=== PATIENT | female | born 1945 | race Caucasian/White ===

== ENCOUNTER → 2019-04-24 10:33 | Outpatient (BNVA) | payer MEDICARE, MEDICAID, SELFPAY | PROVIDERS: PCP Nurse Practitioner Family; Visit Provider Nurse Practitioner Family | DX: R60.9 Edema, unspecified (principal); J44.0 Chronic obstructive pulmonary disease with (acute) lower respiratory infection; J20.9 Acute bronchitis, unspecified; W19.XXXA Unspecified fall, initial encounter; S22.080A Wedge compression fracture of T11-T12 vertebra, initial encounter for closed fracture; R60.0 Localized edema | CPT/HCPCS: 83880 ==

== ENCOUNTER → 2019-06-13 13:54 | Outpatient (BNVA) | payer MEDICARE, MEDICAID, SELFPAY | PROVIDERS: PCP Nurse Practitioner Family; Visit Provider Nurse Practitioner Family | DX: Z51.81 Encounter for therapeutic drug level monitoring (principal); Z79.899 Other long term (current) drug therapy; R60.9 Edema, unspecified; J44.9 Chronic obstructive pulmonary disease, unspecified; I50.9 Heart failure, unspecified | CPT/HCPCS: 80053; 80162 ==

== ENCOUNTER → 2019-08-06 11:09 | Outpatient (BNVA) | payer MEDICARE, MEDICAID, SELFPAY | PROVIDERS: PCP Nurse Practitioner Family; Visit Provider Registered Nurse | DX: R60.9 Edema, unspecified (principal); I87.2 Venous insufficiency (chronic) (peripheral); R60.0 Localized edema | CPT/HCPCS: 81000 ==

== ENCOUNTER 2019-08-08 12:49 | Inpatient (IN) | payer MEDICARE, MEDICAID, SELFPAY ==
[2019-08-08 10:34] VITALS: BMI 34.7
[2019-08-08 10:45] VITALS: BP 170/76; PULSE 97; RESP 24; TEMP 37.1; O2SAT 94
--- NOTE | 2019-08-08 11:00 | CT_ITS ---
WS: [id number] CT HEAD NONCONTRAST HISTORY: fall TECHNIQUE: Contiguous axial imaging performed through the brain in 2.5 mm imaging. Bone and soft tiss ue windows. Sagittal and coronal reformats reviewed. All CT scans at [facility] use at ast one of these dose optimization techniques: automated exposure control; mA and/or kV adjustment pe r patient size (includes targeted exams where dose is matched to clinical indication); or iterative r econstruction. DLP: 775.18 mGy.cm COMPARISON: 11/05/2018 No acute intracranial hemorrhage, midline shift or mass effect. Metallic artifact in the RIGHT tempor al region from a bone anchor hearing device. No atrophy or prior infarcts or herniation. Ventricles: Normal size with no hydrocephalus. No inferior displacement of cerebellar tonsils. Paranasal sinuses: Mild sphenoid sinus disease. Mastoid air cells: Well pneumatized. Calvarium and scalp: Bone anchored hearing device in the posterior RIGHT temporoparietal region simil ar to prior studies. Heavy calcification within the intracranial carotid arteries. CT/CT head wo con* [id number] IMPRESSION: 1. No acute intracranial hemorrhage or edema. 2. Stable head CT since 11/05/2018.
--- NOTE | 2019-08-08 11:00 | XR_ITS ---
WS: [id number] PORTABLE CHEST HISTORY: cough/congestion COMPARISON: 11/05/2018 Examination obtained in lordotic rotated projection. Lungs are clear and well expanded. No pleural effusion or pneumothorax. Cardiac size: Normal. Mediastinum/Aorta: Normal mediastinum. No osseous abnormality seen. XR/XR chest 1V portable [id number] IMPRESSION: Unremarkable portable chest.
--- NOTE | 2019-08-08 11:00 | CT_ITS ---
WS: [id number] CT CERVICAL SPINE HISTORY: fall TECHNIQUE: Contiguous 2.5 mm axial imaging performed through the entire cervical spine. Sagittal and coronal reformats also performed. All CT scans at [facility] use at least one of these do se optimization techniques: automated exposure control; mA and/or kV adjustment per patient size (inc ludes targeted exams where dose is matched to clinical indication); or iterative reconstruction. DLP: 796.6 mGy.cm COMPARISON: None available. Significant rotation of the cervical spine due to patient positioning. RIGHT convex curvature of the posterior alignment being straightened. Craniocervical junction is negative. C1-C2 alignment is meagan l. Moderate degenerative disc disease and small osteophytes at C4-5 and C5-6. Facet joints are normally aligned. C2-C3: Normal. C3-C4: Mild osteophytic ridging. No significant stenosis. C4-C5: Mild osteophytic ridging resulting in moderate to severe RIGHT and moderate LEFT foraminal mayank nosis. C5-C6: Moderate osteophytic ridging. Mild central and moderate RIGHT foraminal stenosis. C6-C7: Mild osteophytic ridging. Mild bilateral foraminal stenosis. C7-T1: Normal. Lung apices are clear. Seen only on image 65 of series 4 is a possible rib fracture in the posterior RIGHT third rib. CT/CT cervical spin wo con* [id number] IMPRESSION: 1. No cervical spine fracture. 2. Degenerative disc disease and osteophytosis. Moderate to severe RIGHT and m oderate LEFT foraminal stenosis at C4-5. 3. Mild central with moderate RIGHT foraminal stenosis at C5-6. 4. Possible posterior RIGHT third rib fracture.
--- NOTE | 2019-08-08 11:02 | ED_ITS ---
HPI - Altered Mental Status General: Chief Complaint: Altered Mental Status Stated Complaint: fall Source: patient, family (spoke to two nieces that help take care of her) and EMS Mode of arrival: EMS Limitations: language barrier (pt is very hard of hearing) History of Present Illness: HPI narrative: Patient is a 73-year-old female who presents to ED today via EMS for a complaint of altered mental status. According to EMS they have been called to the patient's residence several times over the past week for various falls. Patient's niece states that she resides at a senior citizen facility in [place] and has home health that checks on her daily. Apparently EMS got called to her residence today and when they arrived noticed that the patient was altered. They checked a blood sugar and found it was 42 so administered D10 which quickly improved her symptoms. Upon arrival patient is able to answer questions when she can hear them appropriately. She knows she is at [place] in the hospital. She tells me EMS brought her here because she was having difficulty getting out of her chair. She has no physical complaints at this time. According to patient's niece she is her own guardian. She ambulates on her own without difficulty. Family states she has a history of asthma, COPD, DM, CAD. She wears a CPAP at night. She has seen providers at the [facility] clinic recently for CHF/edema. complaint: altered mental status, confusion and decreased responsiveness Onset (ago): hour(s) Timing confirmed by: other (EMS-has seen pt several times) Consistency of symptoms: Unknown (improved now after dextrose administered ) Associated symptoms: Reports no associated symptoms Treatments prior to arrival: glucose Review of Systems General: Reports: 10 or more systems reviewed and unremarkable except in HPI and below Const: Denies: fever(s) or body aches Eyes: Denies: change in vision or blurry vision ENMT: Denies: odynophagia Card: Reports: edema (legs R>L), swelling of feet/ankles and orthopnea (chronic); Denies: chest pain, palpitations, irregular heart rhythm, lightheadedness, syncope or pre-syncope Resp: Reports: dyspnea (chronic); Denies: productive cough, hemoptysis or chest congestion GI: Denies: abdominal pain, nausea, vomiting or diarrhea Musc: Denies: neck pain or back pain Skin/Breast: Denies: rash Neuro: Denies: headache(s) PFSH ED PFSH: Social History (Updated 08/06/19 @ 09:55 by Mitra Ruff LPN) Smoking and tobacco status: smoker, details unknown Second hand smoke exposure: No Adopted: No Caregiver/support person: No Lives independently: Yes History of recent travel: No Current gender identity: Female Physical Exam Const: COMMON NORMALS: no acute distress, patient oriented x3 and alert EXAM LIMITATIONS: language barrier (pt is EXTREMELY hard of hearing) GENERAL APPEARANCE: cooperative NUTRITIONAL APPEARANCE: obese ORIENTATION/CONSCIOUSNESS: Yes oriented to person and Yes oriented to place HENMT: COMMON NORMALS: normocephalic, external ears normal and Normal external nose present HEAD & SCALP: normocephalic and other (pt has mild ecchymosis to L forehead-states she scratched it ) NOSE: Normal external nose present EXTERNAL EAR: Yes external ears normal Eye: COMMON NORMALS: Equal, round and reactive pupils present, EOMs intact bilaterally, conjunctivae normal and no scleral icterus CONJUNCTIVA: Yes conjunctivae normal PUPIL: Yes Equal, round and reactive pupils present Neck/C-Spine: COMMON NORMALS: full ROM CERVICAL SPINE: No pain with cervical ROM, No Cervical spine tenderness and No Paracervical muscle tenderness Chest: COMMONS NORMALS: normal inspection of the chest and normal palpation of entire chest wall OTHER: small area of ecchymosis to L posterior chest wall; appears a few days old Resp: COMMON NORMALS: normal respiratory effort and clear to auscultation bilaterally AUSCULTATION: clear to auscultation bilaterally Cardio: COMMON NORMALS: regular rate and regular rhythm RATE: regular rate RHYTHM: regular rhythm GI: COMMON NORMALS: Normal to inspection, nondistended, normoactive bowel sounds present, Soft to palpation, non-tender, No hepatosplenomegaly present and no masses PALPATION: Yes Soft to palpation and Yes No hepatosplenomegaly present OTHER: obese : COMMON NORMALS: Yes no CVA tenderness BLADDER/KIDNEY EXAM: Yes no CVA tenderness Back/Pelvis: COMMON NORMALS: no CVA tenderness Extremity: GENERAL: Yes normal exam except as noted OTHER: R>L lower extremity edema (this apparently has been present previously looking at recent PCP visit documentation) Neuro: CECILIA COMA SCALE: document GCS findings Corinne coma scale eye opening: Spontaneous Cecilia coma scale verbal response: Orientated Corinne coma scale motor response: Obey commands Cecilia coma scale total score: 15 COMMON NORMALS: patient oriented x3, moves all extremities, no focal motor deficits and no sensory deficits noted SENSORIUM/ORIENTATION: Yes alert, Yes oriented to person and Yes oriented to place Course Vital Signs: Vital signs: Vital Signs Temperature 98.8 F 08/08/19 10:45 Pulse Rate 97 08/08/19 10:45 Respiratory Rate 24 H 08/08/19 10:45 Blood Pressure 170/76 08/08/19 10:45 Pulse Oximetry 94 08/08/19 10:45 MDM - Altered Mental Status MDM Narrative: Medical decision making narrative: Patient comes in today after an episode of altered mental status due to hypoglycemia. Upon arrival patient is alert and oriented. She has no physical complaints at this time. Her extensive work-up from the emergency department does not reveal any further cau ses for her altered mental status episode. Now that we have patient's hearing aid working she better at providing a further history. Patient tells me she wants to go home and is adamant about not going into an assisted living care facility. Case management has worked with patient and found that she has [facility] as well as [facility] at home. She was able to ambulate here without difficulty. Her repeat glucose here was in the 120s. Again her mental status seems to be at her baseline at this time. She is requesting to go home therefore will discharge patient. Return to ED precautions given Lab Data: Labs: Lab Results 08/08/19 08/08/19 08/08/19 Range/Units 09:45 09:45 09:45 WBC 7.4 (4.0-10.0) 10^3/ uL RBC 4.03 L (4.1-5.3) 10^6/u L Hgb 11.3 L (11.5-15.3) g/dL Hct 36.8 L (37.0-47.0) % MCV 91.3 (81-99) fL MCH 28.0 (28.0-34.0) pg MCHC 30.7 (30.0-36.0) g/dL RDW 14.2 (12.1-15.1) % Plt Count 312 (130-400) 10^3/c mm MPV 9.2 (7.4-10.4) fL Neut % (Auto) 76.9 % Lymph % (Auto) 15.9 % Bee % (Auto) 5.6 % Eos % (Auto) 0.7 % Baso % (Auto) 0.1 % Neut # (Auto) 5.7 (1.8-7.7) 10^3/u L Lymph # (Auto) 1.2 (0.8-4.8) 10^3/u L Bee # (Auto) 0.4 (0.2-0.9) 10^3/u L Eos # (Auto) 0.1 (0.0-0.8) 10^3/u L Baso # (Auto) 0.0 (0.0-0.1) 10^3/u L Nucleated RBC % (a uto) 0 % Nucleated RBCs # 0.0 /100WBC Specimen Type Sample Site ABG pH (7.35-7.45) ABG pCO2 (35-45) mmHg ABG pO2 (80.0-100.0) mmH g ABG HCO3 (22-26) mmol/L ABG O2 Saturation ABG Base Excess (-2.0-2.0) mmol/ L Narendra Test A-a O2 Gradient (5-10) mmHg Hematocrit (37-47) % Hgb O2 Saturation (95-100) % Carboxyhemoglobin (0.4-20.1) %THgb Methemoglobin (0.4-1.5) % Total Hemoglobin (12-16) g/dL Ionized Calcium (1.1-1.4) mmol/L FiO2 % Real Estate Attorney ID Sodium 140 (136-145) mmol/L Potassium 4.3 (3.5-5.1) mmol/L Chloride 97 L (98-107) mmol/L Carbon Dioxide 30 H (22-29) mmol/L Anion Gap 17.3 (5-19) BUN 18 (8-23) mg/dL Creatinine 0.7 (0.5-0.9) mg/dL Glucose 41 L (65-115) mg/dL POC Glucose (70-110) mg/dL Calculated Osmolal ity 283 L (285-295) mOsm/k g Lactate (0.5-2.2) mmol/L Calcium 10.1 (8.5-10.5) mg/dL Magnesium 1.7 (1.7-2.3) mg/dL Total Bilirubin 0.3 (0.15-1.2) mg/dL AST 20 (0-32) U/L ALT 15 (0-33) U/L Alkaline Phosphata se 101 (35-105) IU/L Creatine Kinase 159 (26-192) U/L Troponin T Baselin e 12 H (0-10) ng/mL Troponin T 120 Min united [place] (0-10) ng/mL Delta Troponin T (0-10) ABS# NT-Pro-B Natriuret Pep 406 H (0-125) pg/mL Total Protein 7.8 (6.6-8.7) g/dL Albumin 4.6 (3.5-5.2) g/dL Globulin 3.2 (1.3-4.6) g/dL Urine Color (Yellow) Urine Appearance (CLEAR) Urine pH (5-7) Ur Specific Gravit y (1.005-1.030) Urine Protein (Negative) Urine Glucose (UA) (Normal) Urine Ketones (Negative) Urine Blood (Negative) Urine Nitrate (Negative) Urine Bilirubin (NEGATIVE) Urine Urobilinogen (Negative) mg/dL Ur Leukocyte Carmita ase (Negative) Digoxin 0.3 L (0.6-1.2) ng/mL 08/08/19 08/08/19 08/08/19 Range/Units 11:19 12:05 12:33 WBC (4.0-10.0) 10^3/ uL RBC (4.1-5.3) 10^6/u L Hgb (11.5-15.3) g/dL Hct (37.0-47.0) % MCV (81-99) fL MCH (28.0-34.0) pg MCHC (30.0-36.0) g/dL RDW (12.1-15.1) % Plt Count (130-400) 10^3/c mm MPV (7.4-10.4) fL Neut % (Auto) % Lymph % (Auto) % Bee % (Auto) % Eos % (Auto) % Baso % (Auto) % Neut # (Auto) (1.8-7.7) 10^3/u L Lymph # (Auto) (0.8-4.8) 10^3/u L Bee # (Auto) (0.2-0.9) 10^3/u L Eos # (Auto) (0.0-0.8) 10^3/u L Baso # (Auto) (0.0-0.1) 10^3/u L Nucleated RBC % (a uto) % Nucleated RBCs # /100WBC Specimen Type Arterial Sample Site Brachial, left ABG pH 7.41 (7.35-7.45) ABG pCO2 52.1 H (35-45) mmHg ABG pO2 49.8 L (80.0-100.0) mmH g ABG HCO3 32.7 H (22-26) mmol/L ABG O2 Saturation 84.7 ABG Base Excess 6.8 H (-2.0-2.0) mmol/ L Narendra Test Pos A-a O2 Gradient 36.4 H (5-10) mmHg Hematocrit 32.8 L (37-47) % Hgb O2 Saturation 83.2 L (95-100) % Carboxyhemoglobin 0.8 (0.4-20.1) %THgb Methemoglobin 1.0 (0.4-1.5) % Total Hemoglobin 10.7 L (12-16) g/dL Ionized Calcium 1.2 (1.1-1.4) mmol/L FiO2 21.0 % Real Estate Attorney ID bd Sodium 141.0 (136-145) mmol/L Potassium 4.0 (3.5-5.1) mmol/L Chloride (98-107) mmol/L Carbon Dioxide (22-29) mmol/L Anion Gap (5-19) BUN (8-23) mg/dL Creatinine (0.5-0.9) mg/dL Glucose 80.0 (65-115) mg/dL POC Glucose 68 (70-110) mg/dL Calculated Osmolal ity (285-295) mOsm/k g Lactate (0.5-2.2) mmol/L Calcium (8.5-10.5) mg/dL Magnesium (1.7-2.3) mg/dL Total Bilirubin (0.15-1.2) mg/dL AST (0-32) U/L ALT (0-33) U/L Alkaline Phosphata se (35-105) IU/L Creatine Kinase (26-192) U/L Troponin T Baselin e (0-10) ng/mL Troponin T 120 Min united [place] (0-10) ng/mL Delta Troponin T (0-10) ABS# NT-Pro-B Natriuret Pep (0-125) pg/mL Total Protein (6.6-8.7) g/dL Albumin (3.5-5.2) g/dL Globulin (1.3-4.6) g/dL Urine Color Colorless (Yellow) Urine Appearance Clear (CLEAR) Urine pH 7.0 (5-7) Ur Specific Gravit y 1.005 (1.005-1.030) Urine Protein Neg (Negative) Urine Glucose (UA) Norm (Normal) Urine Ketones Negative (Negative) Urine Blood Neg (Negative) Urine Nitrate Negative (Negative) Urine Bilirubin Neg (NEGATIVE) Urine Urobilinogen Norm (Negative) mg/dL Ur Leukocyte Carmita ase Negative (Negative) Digoxin (0.6-1.2) ng/mL 08/08/19 08/08/19 08/08/19 Range/Units 12:37 12:37 13:33 WBC (4.0-10.0) 10^3/ uL RBC (4.1-5.3) 10^6/u L Hgb (11.5-15.3) g/dL Hct (37.0-47.0) % MCV (81-99) fL MCH (28.0-34.0) pg MCHC (30.0-36.0) g/dL RDW (12.1-15.1) % Plt Count (130-400) 10^3/c mm MPV (7.4-10.4) fL Neut % (Auto) % Lymph % (Auto) % Bee % (Auto) % Eos % (Auto) % Baso % (Auto) % Neut # (Auto) (1.8-7.7) 10^3/u L Lymph # (Auto) (0.8-4.8) 10^3/u L Bee # (Auto) (0.2-0.9) 10^3/u L Eos # (Auto) (0.0-0.8) 10^3/u L Baso # (Auto) (0.0-0.1) 10^3/u L Nucleated RBC % (a uto) % Nucleated RBCs # /100WBC Specimen Type Sample Site ABG pH (7.35-7.45) ABG pCO2 (35-45) mmHg ABG pO2 (80.0-100.0) mmH g ABG HCO3 (22-26) mmol/L ABG O2 Saturation ABG Base Excess (-2.0-2.0) mmol/ L Narendra Test A-a O2 Gradient (5-10) mmHg Hematocrit (37-47) % Hgb O2 Saturation (95-100) % Carboxyhemoglobin (0.4-20.1) %THgb Methemoglobin (0.4-1.5) % Total Hemoglobin (12-16) g/dL Ionized Calcium (1.1-1.4) mmol/L FiO2 % Real Estate Attorney ID Sodium (136-145) mmol/L Potassium (3.5-5.1) mmol/L Chloride (98-107) mmol/L Carbon Dioxide (22-29) mmol/L Anion Gap (5-19) BUN (8-23) mg/dL Creatinine (0.5-0.9) mg/dL Glucose (65-115) mg/dL POC Glucose 124 (70-110) mg/dL Calculated Osmolal ity (285-295) mOsm/k g Lactate 1.0 (0.5-2.2) mmol/L Calcium (8.5-10.5) mg/dL Magnesium (1.7-2.3) mg/dL Total Bilirubin (0.15-1.2) mg/dL AST (0-32) U/L ALT (0-33) U/L Alkaline Phosphata se (35-105) IU/L Creatine Kinase (26-192) U/L Troponin T Baselin e (0-10) ng/mL Troponin T 120 Min united [place] 10.91 H (0-10) ng/mL Delta Troponin T -1.09 L (0-10) ABS# NT-Pro-B Natriuret Pep (0-125) pg/mL Total Protein (6.6-8.7) g/dL Albumin (3.5-5.2) g/dL Globulin (1.3-4.6) g/dL Urine Color (Yellow) Urine Appearance (CLEAR) Urine pH (5-7) Ur Specific Gravit y (1.005-1.030) Urine Protein (Negative) Urine Glucose (UA) (Normal) Urine Ketones (Negative) Urine Blood (Negative) Urine Nitrate (Negative) Urine Bilirubin (NEGATIVE) Urine Urobilinogen (Negative) mg/dL Ur Leukocyte Carmita ase (Negative) Digoxin (0.6-1.2) ng/mL Imaging Data^: CT Head: Radiologist's impression: [facility] [address] [place] [address] CT Scan Report Signed Patient: Marissa Hyde Unit #: [id number] : 1945 Age/Sex: 73 / F ADM Date: Loc: ER Room/Bed: Attending Dr: Ordering Provider/Ordering MD: Kely Stallings Date of Service: 08/08/19 Procedure(s): CT head wo con* [id number] Accession Number(s): [id number] Report Number: [id number] WS: [id number] CT HEAD NONCONTRAST HISTORY: fall TECHNIQUE: Contiguous axial imaging performed through the brain in 2.5 mm imaging. Bone and soft tissue windows. Sagittal and coronal reformats reviewed. All CT scans at [facility] use at least one of these dose optimization techniques: automated exposure control; mA and/or kV adjustment per patient size (includes targeted exams where dose is matched to clinical indication); or iterative reconstruction. DLP: 775.18 mGy.cm COMPARISON: 11/05/2018 No acute intracranial hemorrhage, midline shift or mass effect. Metallic artifact in the RIGHT temporal region from a bone anchor hearing device. No atrophy or prior infarcts or herniation. Ventricles: Normal size with no hydrocephalus. No inferior displacement of cerebellar tonsils. Paranasal sinuses: Mild sphenoid sinus disease. Mastoid air cells: Well pneumatized. Calvarium and scalp: Bone anchored hearing device in the posterior RIGHT temporoparietal region similar to prior studies. Heavy calcification within the intracranial carotid arteries. CT/CT head wo con* [id number] IMPRESSION: 1. No acute intracranial hemorrhage or edema. 2. Stable head CT since 11/05/2018. Dictated By: Lucy Babb DO Signed By: Lucy Babb DO Signed Date/Time: 08/08/19 1206 DD/ 1201 CXR: Radiologist's impression: [address] [place] [address] XRay Report Signed Patient: Marissa Hyde Unit #: [id number] : 1945 Age/Sex: 73 / F ADM Date: Loc: ER Room/Bed: Attending Dr: Ordering Provider/Ordering MD: Kely Stallings Date of Service: 08/08/19 Procedure(s): XR chest 1V portable [id number] Accession Number(s): [id number] Report Number: [id number] WS: [id number] PORTABLE CHEST HISTORY: cough/congestion COMPARISON: 11/05/2018 Examination obtained in lordotic rotated projection. Lungs are clear and well expanded. No pleural effusion or pneumothorax. Cardiac size: Normal. Mediastinum/Aorta: Normal mediastinum. No osseous abnormality seen. XR/XR chest 1V portable [id number] IMPRESSION: Unremarkable portable chest. Dictated By: Lucy Babb DO Signed By: Lucy Babb DO Signed Date/Time: 08/08/19 1145 DD/ 1144 CT cervical : Radiologist's impression: [place] [address] CT Scan Report Signed Patient: Marissa Hyde Unit #: [id number] : 1945 Age/Sex: 73 / F ADM Date: Loc: ER Room/Bed: Attending Dr: Ordering Provider/Ordering MD: Kely Stallings Date of Service: 08/08/19 Procedure(s): CT cervical spin wo con* [id number] Accession Number(s): [id number] Report Number: [id number] WS: [id number] CT CERVICAL SPINE HISTORY: fall TECHNIQUE: Contiguous 2.5 mm axial imaging performed through the entire cervical spine. Sagittal and coronal reformats also performed. All CT scans at [facility] use at least one of these dose optimization techniques: automated exposure control; mA and/or kV adjustment per patient size (includes targeted exams where dose is matched to clinical indication); or iterative reconstruction. DLP: 796.6 mGy.cm COMPARISON: None available. Significant rotation of the cervical spine due to patient positioning. RIGHT convex curvature of the posterior alignment being straightened. Craniocervical junction is negative. C1-C2 alignment is normal. Moderate degenerative disc disease and small osteophytes at C4-5 and C5-6. Facet joints are normally aligned. C2-C3: Normal. C3-C4: Mild osteophytic ridging. No significant stenosis. C4-C5: Mild osteophytic ridging resulting in moderate to severe RIGHT and moderate LEFT foraminal stenosis. C5-C6: Moderate osteophytic ridging. Mild central and moderate RIGHT foraminal stenosis. C6-C7: Mild osteophytic ridging. Mild bilateral foraminal stenosis. C7-T1: Normal. Lung apices are clear. Seen only on image 65 of series 4 is a possible rib fracture in the posterior RIGHT third rib. CT/CT cervical spin wo con* [id number] IMPRESSION: 1. No cervical spine fracture. 2. Degenerative disc disease and osteophytosis. Moderate to severe RIGHT and moderate LEFT foraminal stenosis at C4-5. 3. Mild central with moderate RIGHT foraminal stenosis at C5-6. 4. Possible posterior RIGHT third rib fracture. Dictated By: Lucy Babb DO Signed By: Lucy Babb DO Signed Date/Time: 08/08/19 1242 DD/ 1206 R LE venous US: Radiologist's impression: CONCLUSIONS No DVT right lower extremity. EKG Data^: EKG 1: EKG interpretation date: 08/08/19 EKG interpretation time: 11:21 Interpretation: Normal sinus rhythm Rate 91 No acute ischemic changes noted Reviewed with Dr. Acuna Discharge Plan Discharge Patient Disposition: Home, Self-Care Clinical Impression: Hypoglycemia Condition: Stable Prescriptions: No Action levalbuterol HCl [Xopenex] 0.63 mg/3 mL solution for nebulization 0.63 mg INHALATION ONCE Qty: 3 RF: 0 bumetanide 2 mg tablet 4 mg PO BID 30 Days Qty: 120 RF: 0 magnesium 200 mg tablet 200 mg PO QDAY RF: 0 glipizide-metformin 5-500 mg tablet 1 tab PO BID RF: 0 Spiriva with HandiHaler 18 mcg capsule, w/inhalation device 1 cap INHALATION QDAY RF: 0 isosorbide mononitrate 30 mg tablet extended release 24 hr See Rx Instructions PO QAM RF: 0 metolazone 5 mg tablet 5 mg PO BID RF: 0 gabapentin 300 mg capsule 300 mg PO TID RF: 0 diltiazem HCl 90 mg capsule,extended release 12 hr 90 mg PO BID RF: 0 citalopram 20 mg tablet 20 mg PO QDAY RF: 0 fluticasone propion-salmeterol [Advair Diskus] 250-50 mcg/dose blister with device 1 inh INHALATION BID RF: 0 digoxin [Digox] 125 mcg (0.125 mg) tablet 125 mcg PO QDAY RF: 0 albuterol sulfate [Ventolin HFA] 90 mcg/actuation HFA aerosol inhaler 2 puff INHALATION Q4H PRNRF: 0 lisinopril 2.5 mg tablet 2.5 mg PO QDAY RF: 0 promethazine-DM 6.25-15 mg/5 mL syrup 5 ml PO Q6H PRN (Reason: cough) Qty: 473 RF: 0 omeprazole 20 mg capsule,delayed release(DR/EC) 20 mg PO BID 90 Days Qty: 180 RF: 0 cetirizine 10 mg capsule 10 mg PO QDAY Qty: 90 RF: 0 Discharge Orders: Discharge Order (Routine); Ordered 08/08/19 Ordered By: Kely Stallings Referrals: Jessica Pena FNP [Primary Care Provider] - Discharge Diet: Usual diet Discharge Activity: Increase activity as tolerated Patient Instructions: Hypoglycemia Coding Level of Care Code ED Learning And Development Officer for Chg Fwd Exam Comprehensive
--- NOTE | 2019-08-08 11:16 | USCV_ITS ---
Marissa Hyde Age: 73 Gender: F : 1945 Exam Date: 08/08/2019 12:07 Ordering Phys: Kely Stallings Technologist: Andi Moreno Exam Location: [facility] [place] Indication: SWELLING HISTORY: Lower extremity swelling. PROCEDURES: Venous duplex imaging was performed in only the right lower extremity. The following venous structures were evaluated: common femoral vein, profunda vein, proximal portion of the greater saphenous vein, superficial femoral vein, and the popliteal vein. In addition, the posterior tibial and peroneal trunk were evaluated. Serial compression, augmentation maneuvers, and spectral Doppler flow evaluation were performed. FINDINGS: Normal 2-D Doppler and augmentation and compressibility throughout the lower extremity venous structures. Additional imaging through the proximal calf veins also reveals no thrombus. Limited evaluation of the greater saphenous vein is patent with no thrombus. CONCLUSIONS No DVT right lower extremity. Dr. Lucy Babb DO (Electronically Signed) Final Date: 08 Aug 2019 13:20 S
[2019-08-08 11:46] LABS: Basophils % 0.1 %; Eosinophils # 0.1 10^3/uL (0.0-0.8); Eosinophils % 0.7 %; Hematocrit 36.8 % (37.0-47.0); Hemoglobin 11.3 g/dL (11.5-15.3); Lymphocytes # 1.2 10^3/uL (0.8-4.8); Lymphocytes % 15.9 %; Mean Corpuscular HGB Conc 30.7 g/dL (30.0-36.0); Mean Corpuscular Volume 91.3 fL (81-99); Mean Platelet Volume 9.2 fL (7.4-10.4); Monocytes # 0.4 10^3/uL (0.2-0.9); Monocytes % 5.6 %; Neutrophils # 5.7 10^3/uL (1.8-7.7); Neutrophils % 76.9 %; Nucleated Red Blood Cells % 0 %; Platelet Count 312 10^3/cmm (130-400); Red Blood Count 4.03 10^6/uL (4.1-5.3); Red Cell Distribution Width 14.2 % (12.1-15.1); White Blood Count 7.4 10^3/uL (4.0-10.0)
[2019-08-08 11:46] LABS: Add Urine Microscopic? NO
[2019-08-08 12:03] LABS: Bilirubin Urine Neg (NEGATIVE); Blood Urine Neg (Negative); Glucose Urine UA Norm (Normal); Ketones Urine Negative (Negative); Leukocyte Esterase Urine Negative (Negative); Nitrate Urine Negative (Negative); Protein Urine Neg (Negative); Specific Gravity, Urine 1.005 (1.005-1.030); Urine Appearance Clear (CLEAR); Urine Color Colorless (Yellow); Urobilinogen Urine Norm (Negative)
[2019-08-08 12:14] LABS: Troponin(5th) Baseline 12 ng/mL (0-10)
[2019-08-08 12:18] LABS: ABG PCO2 52.1 mmHg (35-45); ABG PH Result 7.41 (7.35-7.45); Alveolar-Arterial Oxygen Gradi 36.4 mmHg (5-10); Arterial Blood Gas Hematocrit 32.8 % (37-47); Base Excess ABG 6.8 mmol/L (-2.0-2.0); Blood Gas Allen Test Pos; Blood Gas Sample Site Brachial, left; Blood Gas Sample Type Arterial; Carboxyhemoglobin 0.8 %THgb (0.4-20.1); HCO3 ABG 32.7 mmol/L (22-26); HGB O2 Sat 83.2 % (95-100); Ionized Calcium Level - ABG 1.2 mmol/L (1.1-1.4); Oxygen Saturation ABG 84.7; PO2 ABG 49.8 mmHg (80.0-100.0); Total Hemoglobin 10.7 g/dL (12-16)
[2019-08-08 12:20] LABS: Alanine Aminotransferase 15 U/L (0-33); Albumin Level 4.6 g/dL (3.5-5.2); Alkaline Phosphatase 101 IU/L (35-105); Anion Gap 17.3 (5-19); Aspartate Amino Transferase 20 U/L (0-32); Blood Urea Nitrogen 18 mg/dL (8-23); Calcium 10.1 mg/dL (8.5-10.5); Carbon Dioxide 30 mmol/L (22-29); Chloride 97 mmol/L (98-107); Creatine Phosphokinase 159 U/L (26-192); Globulin 3.2 g/dL (1.3-4.6); Glucose 41 mg/dL (65-115); Magnesium 1.7 mg/dL (1.7-2.3); NT Pro B Type Natriuretic Pept 406 pg/mL (0-125); Osmolality Calculated 283 mOsm/kg (285-295); Potassium 4.3 mmol/L (3.5-5.1); Sodium 140 mmol/L (136-145); Total Bilirubin 0.3 mg/dL (0.15-1.2); Total Protein 7.8 g/dL (6.6-8.7)
[2019-08-08] MEDS: dextrose 50% syringe 50 mL IVP (12:55)
[2019-08-08 12:59] LABS: Digoxin 0.3 ng/mL (0.6-1.2)
[2019-08-08 13:05] LABS: Troponin 5 2HR 10.91 ng/mL (0-10); Troponin 5 2HR Delta -1.09 ABS# (0-10)
[2019-08-08 13:37] LABS: Glucose Point of Care 68 mg/dL (70-110)
[2019-08-08 13:37] LABS: Glucose Point of Care 124 mg/dL (70-110)
[2019-08-08 14:18] VITALS: BP 176/56; PULSE 98; RESP 18; O2SAT 94
--- NOTE | 2019-08-08 14:26 | DCPLANNER ---
recruitment manager was asked to find out where patient lived, and who was patients home health agency. recruitment manager called [facility], [facility], [facility], [facility], [facility] home health and was told that no one by that name was on their services at this time. recruitment manager called patients primary care physician at [facility] Mtkarlie Fuentes, was told that patients home health was [facility]. recruitment manager called [facility], and was told that patient does not have services with [facility], but that patient may have services with [facility]. recruitment manager called [facility] and was told that patient does not have services with [facility], but that patient may have services with [facility]. recruitment manager called [facility], was told that patient was receiving nursing services with this company. recruitment manager was also told that patient was getting other services with [facility]. recruitment manager informed the ED physician of where the patient has services and where the patient lives. recruitment manager was then asked to arrange for transportation for patient to go home. recruitment manager called [facility], spoke with [place], [place] [id number].
--- NOTE | 2019-08-08 15:51 | CT_ITS ---
WS: [id number] CT HEAD NONCONTRAST HISTORY: fall while in ED TECHNIQUE: Contiguous axial imaging performed through the brain in 2.5 mm imaging. Bone and soft tiss ue windows. Sagittal and coronal reformats reviewed. All CT scans at [facility] use at ast one of these dose optimization techniques: automated exposure control; mA and/or kV adjustment pe r patient size (includes targeted exams where dose is matched to clinical indication); or iterative r econstruction. DLP: 571.94 mGy.cm COMPARISON: 08/08/2019. There is an area of decreased attenuation in the RIGHT parieto-occipital region which is probably an artifact from the patient's hearing implant. Not definitely present on the prior study but there is a lot more artifact on this examination than the prior. No acute hemorrhage. No midline shift. No significant atrophy. No prior infarct. Ventricles: Normal size with no hydrocephalus. Paranasal sinuses: Mild sphenoid sinus disease. Mastoid air cells: Well pneumatized. Calvarium and scalp: No fractures. There is new soft tissue hematoma over the RIGHT frontal bone that was not present on the prior study. Was a small amount of edema over the LEFT frontal region but now there is more extensive soft tissue edema. CT/CT head wo con* [id number] IMPRESSION: 1. No acute intracranial hemorrhage. 2. Large amount of artifact obscuring portions of brain secondary to the RIGHT hearing implant. 3. New scalp hematoma centered over the frontal region.
--- NOTE | 2019-08-08 15:51 | CT_ITS ---
WS: [id number] CT CERVICAL SPINE HISTORY: fall while in ED TECHNIQUE: Contiguous 2.5 mm axial imaging performed through the entire cervical spine. Sagittal and coronal reformats also performed. All CT scans at [facility] use at least one of these do se optimization techniques: automated exposure control; mA and/or kV adjustment per patient size (inc ludes targeted exams where dose is matched to clinical indication); or iterative reconstruction. DLP: 659.16 mGy.cm COMPARISON: 08/08/2019. No interval fracture. Craniocervical junction is normal. Lateral masses of C1 and C2 are aligned. Mil d RIGHT convex curvature of the cervical spine. The degenerative disc disease and foraminal stenosis described on the report a few hours ago are unchanged. CT/CT cervical spin wo con* [id number] IMPRESSION: No cervical spine fracture since the study earlier the same day.
--- NOTE | 2019-08-08 15:52 | PC.NURSE ---
attempting to ambulate patient and patient fell injuring arm and nose
[2019-08-08 16:47] LABS: Glucose Point of Care 74 mg/dL (70-110)
--- NOTE | 2019-08-08 17:00 | ECG_ITS ---
Measurements Intervals Goehner Rate: 91 P: -78 MI: 131 QRS: 72 QRSD: 97 T: 52 QT: 355 QTc: 438 JUNCTIONAL RHYTHM POSSIBLE RIGHT VENTRICULAR CONDUCTION DELAY [RSR (QR) IN V1/V2] ABNORMAL RHYTHM ECG Compared to ECG 11/05/2018 20:02:16 Junctional rhythm now present Ectopic atrial rhythm no longer present Electronically Signed On 08-08-2019 20:35:12 CDT by Waqas Fenton M.D. [email or web address]
[2019-08-08] MEDS: dextrose 5% 1,000 ML 125 ML IV (17:34)
[2019-08-08 18:13] VITALS: BP 136/69; PULSE 110; RESP 18; O2SAT 94
--- NOTE | 2019-08-08 18:58 | PM.HP ---
Providers/Chief Complaint Admitting Physician: Chata Armijo MD Primary Care Provider: HO Silva Chief Complaint: fall History of Present Illness Marissa Hyde is a 73 year old female who presented with chief complaint of AMS. I believe she is from home and has some assistance from family as well as a home health service but I am not certain about this. She presented via EMS with complaint of altered mental status. She had had a fall today as well. She had a knot on her head and was found to have hypoglycemia with blood sugars into the 40s. She had received some D10 in route. Blood sugars were low again here and dropped further later on. She is a known diabetic and is on glipizide, pioglitazone and metformin. She denies taking any extra of her medication. She may also be on insulin although we are having a bit of difficulty fully clarifying what her medication list is. Denies that the medications are new. Emergency room provider identified from family that patient is normally able to walk without assistance but she is currently so weak that she is not able to. Patient had been treated in the emergency room and consideration was being given to discharge back to facility. While in the emergency room she had a fall, landing on her face. She has a second forehead hematoma related to this. She had CT of her head and cervical spine twice today with results as noted below. Given the hypoglycemia, sulfonylurea use, what sounds like new weakness contributing to gait instability and other issues patient is being admitted for further evaluation and treatment. Limited past medical history is available in the system. It is challenging to obtain answers from her due to her degree of hearing loss, combined with I think effects from events of today. Review of Systems General: Reports: ROS unobtainable due to mental status Medications/Allergies Home Medications Medication Instructions Recorded Confirmed Last Taken Type albuterol sulfate 90 mcg/actuation 2 puff INHALATION Q4H PRN gm 04/17/19 08/08/19 Unknown History aerosol inhaler citalopram 20 mg tablet 20 mg PO QDAY 04/17/19 08/08/19 Unknown History digoxin 125 mcg (0.125 mg) tablet 125 mcg PO QDAY 04/17/19 08/08/19 Unknown History diltiazem HCl 90 mg 90 mg PO BID 04/17/19 08/08/19 Unknown History capsule,extended release 12 hr fluticasone 250 mcg-salmeterol 50 1 inh INHALATION BID each 04/17/19 08/08/19 Unknown History mcg/dose blistr powdr for inhalation gabapentin 300 mg capsule 300 mg PO TID 04/17/19 08/08/19 Unknown History glipizide 5 mg-metformin 500 mg 1 tab PO BID 04/17/19 08/08/19 Unknown History tablet isosorbide mononitrate 30 mg See Rx Instructions PO QAM 04/17/19 08/08/19 Unknown History tablet,extended release 24 hr lisinopril 2.5 mg tablet 2.5 mg PO QDAY 04/17/19 08/08/19 Unknown History magnesium 200 mg tablet 200 mg PO QDAY 04/17/19 08/08/19 Unknown History metolazone 5 mg tablet 5 mg PO BID tab 04/17/19 08/08/19 Unknown History tiotropium bromide 18 mcg capsule 1 cap INHALATION QDAY 04/17/19 08/08/19 Unknown History with inhalation device promethazine-DM 6.25 mg-15 mg/5 mL 5 ml PO Q6H PRN #473 ml 05/02/19 08/08/19 Unknown Rx oral syrup bumetanide 2 mg tablet 4 mg PO BID 30 Days #120 tab 08/06/19 08/08/19 Unknown Rx cetirizine 10 mg capsule 10 mg PO QDAY #90 cap 08/07/19 08/08/19 Unknown Rx omeprazole 20 mg capsule,delayed 20 mg PO BID 90 Days #180 cap 08/07/19 08/08/19 Unknown Rx release pioglitazone 15 mg PO DAILY 08/08/19 08/08/19 Unknown History potassium chloride See Rx Instructions .ROUTE .COMPLEX 08/08/19 08/08/19 Unknown History Allergies Allergy/AdvReac Type Severity Reaction Status Date / Time adhesive tape Allergy Unknown Verified 08/06/19 09:54 levofloxacin [From Levaquin] Allergy Unknown Verified 08/06/19 09:54 morphine Allergy Unknown Verified 08/06/19 09:54 nitrofurantoin Allergy Unknown Verified 08/06/19 09:54 [From Macrobid] oxytetracycline Allergy Unknown Verified 08/06/19 09:54 [From Terramycin with Polymyxin B] Penicillins Allergy Unknown Verified 08/06/19 09:54 polymyxin B Allergy Unknown Verified 08/06/19 09:54 [From Terramycin with Polymyxin B] Sulfa (Sulfonamide Allergy Unknown Verified 08/06/19 09:54 Antibiotics) PFSH Acute PFSH: Medical History (Updated 08/08/19 @ 22:26 by Chata Armijo MD) Asthma Diabetes mellitus type 2, noninsulin dependent GERD (gastroesophageal reflux disease) Gout Hard of hearing Hypertension Obstructive sleep apnea Wears CPAP Surgical History (Updated 08/08/19 @ 20:13 by Chata Armijo MD) History of bladder surgery History of cataract surgery History of cholecystectomy History of hysterectomy History of partial thyroidectomy Social History Smoking and tobacco status: smoker, details unknown Second hand smoke exposure: No Adopted: No Caregiver/support person: No Lives independently: Yes History of recent travel: No Current gender identity: Female Vitals/I&O/Wt Last Vital Signs Temp 98.8 F 08/08/19 10:45 Pulse 110 H 08/08/19 18:13 Resp 18 08/08/19 18:13 BP 136/69 08/08/19 18:13 Pulse Ox 94 08/08/19 18:13 Weight last 48 hrs Weight 86.183 kg Physical Exam Const: OTHER: Patient is sitting up but sleepy. She is oriented to the fact that she is not where she should be as well as to who she is. Patient is quite hard of hearing requiring questions to be asked several times. She tries to answer but I was not getting consistent answers from her. Blood sugars remain HENMT: OTHER: Patient with significant swelling on her forehead with some bruising more prominent on the left than the right. Area is tender over the left eyelid mildly. Eye: OTHER: Pupils are equal bilaterally, no pain with movement and extraocular movements are intact. She has some slightly muddy sclera but no hemorrhage noted Neck/C-Spine: OTHER: Supple, mild tenderness in the musculature Resp: OTHER: Clear to auscultation bilaterally, no rales, rhonchi or wheezes noted Cardio: OTHER: Regular rate and rhythm, 1+ pulses throughout GI: OTHER: Abdomen soft, nontender, nondistended with positive bowel sounds : OTHER: Deferred Extremity: NARRATIVE EXTREMITY EXAM: Edematous more so than left lower extremity which patient states is chronic Neuro: OTHER: Extraocular movements are intact, uvula is midline, speech is a little garbled but face looks symmetric beyond the hematoma on her head. Handgrip is equal Skin: OTHER: Skin tear to right elbow with sutures Data : 08/08/19 09:45 08/08/19 09:45 Other data: Venous duplex of the right lower extremity without evidence of DVT Initial CT of the cervical spine and head as well as repeat CT of the head and cervical spine were reviewed. Demonstrated no evidence of cervical fracture, possible posterior right third rib fracture, degenerative changes and no acute intracranial abnormalities. Patient was noted to have a hearing implant on the right and on the second CT of the head had a scalp hematoma in the frontal region. Chest x-ray was unremarkable ECHO 11/2017 CONCLUSIONS 1. Normal left ventricular cavity size. Normal left ventricular systolic function. Left ventricular ejection fraction is estimated at 69 %. No regional wall motion abnormalities. Normal diastolic function. 2. Normal right ventricular size and systolic function. 3. Normal pulmonary artery pressure, pulmonary artery pressure estimated at 23 mmHg. 4. Right atrial pressure estimated at 3 mmHg. 5. Mild mitral valve regurgitation. A&P Assessment and plan (1) Hypoglycemia: Status: Acute (2) Recurrent falls: Currently with inability to walk which is new for her Status: Acute (3) Diabetes mellitus type 2, noninsulin dependent: Status: Chronic (4) Atrial fibrillation: Status: Suspected Qualifiers: Atrial fibrillation type: unspecified Qualified Code(s): I48.91 - Unspecified atrial fibrillation (5) Hypertension: Status: Chronic Qualifiers: Hypertension type: essential hypertension Qualified Code(s): I10 - Essential (primary) hypertension (6) Asthma: Status: Chronic Qualifiers: Asthma complication type: unspecified Asthma severity: unspecified severity Asthma persistence: unspecified Qualified Code(s): J45.909 - Unspecified asthma, uncomplicated (7) Gout: Status: Chronic Qualifiers: Gout site: unspecified site Gout etiology: unspecified cause Chronicity: chronic Presence of tophus: without tophus Qualified Code(s): M1A.9XX0 - Chronic gout, unspecified, without tophus (tophi) (8) GERD (gastroesophageal reflux disease): Status: Chronic Qualifiers: Esophagitis presence: without esophagitis Qualified Code(s): K21.9 - Gastro-esophageal reflux disease without esophagitis (9) Hard of hearing: Status: Acute Qualifiers: Hearing loss type: unspecified Laterality: bilateral Qualified Code(s): H91.93 - Unspecified hearing loss, bilateral (10) Obstructive sleep apnea: Status: Acute Additional A&P Information Inpatient admission Every 2 hours Accu-Cheks Continue D5 W for now Hold hypoglycemic agents Check digoxin level PT OT evaluation Serial neuro checks Reevaluate in the morning to determine if we need to do any further evaluation Continue home CPAP Inhalers if needed Decreased dose of bumetanide, continue potassium Continue diltiazem but currently holding isosorbide, lisinopril digoxin, metolazone Decreased dose of gabapentin SCDs for DVT prophylaxis Holding any pharmacological prophylaxis secondary to hematoma on forehead Telemetry monitoring Supportive care otherwise Full code We will have to see how patient does before determining disposition plans. She was evidently at home with some assistance though not / prior to this. That is what she would ultimately like to do is get back home. Plans were discussed with patient and she was given an opportunity to ask questions. I am not sure exactly how much of it she followed. Attestations Medical Necessity Statement*: Anticipated stay greater than 2 midnights in a patient with significant hyperglycemia on sulfonylurea therapy. In addition to this patient has inability to walk though is reported to be able to ambulate independently at baseline. Plans are as noted above. Coding Level of Care Code Acute Pasteurizer Helper for Chg Fwd Diagnoses Hypoglycemia E16.2 Recurrent falls R29.6 Diabetes mellitus type 2, noninsulin dependent E11.9 Atrial fibrillation I48.91 Atrial fibrillation type: unspecified Hypertension I10 Hypertension type: essential hypertension Asthma J45.909 Asthma complication type: unspecified Asthma severity: unspecified severity Asthma persistence: unspecified Gout [id number].[id number] Gout site: unspecified site Gout etiology: unspecified cause Chronicity: chronic Presence of tophus: without tophus GERD (gastroesophageal reflux disease) K21.9 Esophagitis presence: without esophagitis Hard of hearing H91.93 Hearing loss type: unspecified Laterality: bilateral Obstructive sleep apnea G47.33
[2019-08-08 20:00] VITALS: BP 127/61; PULSE 95; RESP 22; TEMP 36.4; O2SAT 95
[2019-08-08] MEDS: gabapentin 300 mg Capsule 150 MG PO (22:41)
[2019-08-08] MEDS: dilTIAZem 60 mg Tablet PO (22:43)
[2019-08-08 23:03] LABS: Glucose Point of Care 195 mg/dL (70-110)
[2019-08-08 23:05] LABS: Glucose Point of Care 161 mg/dL (70-110)
[2019-08-09] VITALS (14 sets, daily range): BP systolic 123–161; BP diastolic 67–87; PULSE 78–94; RESP 14–20; TEMP 36.4–38.4; O2SAT 87–98
[2019-08-09] MEDS: acetaminophen 325 mg Tablet 650 MG PO (01:02)
[2019-08-09] MEDS: albuterol 8 gm MDI 2 PUFF INHALATION ×2 (01:18→21:44)
[2019-08-09 01:51] LABS: Glucose Point of Care 151 mg/dL (70-110)
[2019-08-09 05:26] LABS: Basophils % 0.2 %; Eosinophils # 0.1 10^3/uL (0.0-0.8); Eosinophils % 1.5 %; Hematocrit 34.5 % (37.0-47.0); Hemoglobin 10.1 g/dL (11.5-15.3); Lymphocytes # 1.7 10^3/uL (0.8-4.8); Lymphocytes % 28.4 %; Mean Corpuscular HGB Conc 29.3 g/dL (30.0-36.0); Mean Corpuscular Hemoglobin 26.9 pg (28.0-34.0); Mean Platelet Volume 8.9 fL (7.4-10.4); Monocytes # 0.5 10^3/uL (0.2-0.9); Monocytes % 7.5 %; Neutrophils # 3.7 10^3/uL (1.8-7.7); Neutrophils % 62.2 %; Nucleated Red Blood Cells % 0 %; Platelet Count 258 10^3/cmm (130-400); Red Blood Count 3.75 10^6/uL (4.1-5.3); Red Cell Distribution Width 14.1 % (12.1-15.1)
[2019-08-09 05:44] LABS: Magnesium 1.8 mg/dL (1.7-2.3)
[2019-08-09 05:46] LABS: Digoxin 0.3 ng/mL (0.6-1.2)
[2019-08-09 05:48] LABS: Anion Gap 17.1 (5-19); Blood Urea Nitrogen 18 mg/dL (8-23); Calcium 9.6 mg/dL (8.5-10.5); Carbon Dioxide 27 mmol/L (22-29); Chloride 96 mmol/L (98-107); Glucose 149 mg/dL (65-115); Osmolality Calculated 281 mOsm/kg (285-295); Potassium 4.1 mmol/L (3.5-5.1); Sodium 136 mmol/L (136-145)
[2019-08-09 06:39] LABS: Glucose Point of Care 226 mg/dL (70-110)
[2019-08-09 09:04] LABS: Glucose Point of Care 130 mg/dL (70-110)
[2019-08-09] MEDS: dilTIAZem 60 mg Tablet PO ×3 (10:05→21:43)
[2019-08-09] MEDS: pantoprazole DR 40 mg Tablet PO ×2 (10:05→17:49)
[2019-08-09] MEDS: citalopram 20 mg Tablet PO (10:05)
[2019-08-09] MEDS: gabapentin 300 mg Capsule 150 MG PO ×2 (10:06→16:37)
[2019-08-09] MEDS: bumetanide 1 mg Tablet 2 MG PO (10:06)
[2019-08-09 11:39] LABS: Glucose Point of Care 124 mg/dL (70-110)
--- NOTE | 2019-08-09 13:22 | P.PN_ITS ---
Subjective Subjective: Interval history: As soon as I walked in the room, patient was requesting to be discharged home today. She remains hard of hearing and difficult to get a clear story from. She does not seem to have any understanding of the fact that her blood sugar was low at admission. She does not remember falling down in the emergency room and hitting her head. She tells everybody that she can walk when she clearly is unable to walk without assistance at the moment. Have been trying to get in touch with family whom I could talk with myself to discern her baseline is. Recent clinic note indicates a fairly unremarkable review of systems. PT evaluated the patient. Orthostatic vitals were obtained and did not show any evidence of orthostasis. Medications: Reviewed: Yes Vitals/I&O/Wt Last Vital Signs Temp 98.4 F 08/09/19 11:19 Pulse 86 08/09/19 11:19 Resp 20 H 08/09/19 08:44 BP 128/73 08/09/19 11:19 Pulse Ox 96 08/09/19 11:19 08/08/19 08/09/19 08/09/19 22:59 06:59 14:59 Intake Total 200 / 200 60 / 260 Balance 200 / 200 60 / 260 Weight last 48 hrs Weight 86.183 kg Physical Exam 2 Const: OTHER: Much more alert today. HENMT: OTHER: No change really in forehead hematoma. Patient remains very hard of hearing. Hearing assistive device is behind the right ear. Eye: OTHER: Pupils reactive Neck/C-Spine: OTHER: Supple Resp: OTHER: Clear to auscultation bilaterally Cardio: OTHER: Regular GI: OTHER: Abdomen soft, nontender Extremity: NARRATIVE EXTREMITY EXAM: Right lower extremity is larger than left lower extremity but no significant change from yesterday, patient has some ulnar deviation most prominently noted in the right hand Neuro: OTHER: Speech is more coherent today, moves upper extremities, I did not assess gait Skin: OTHER: Skin tear to right elbow with sutures, scattered bruises to arms in addition to what is on the forehead Data : 08/09/19 05:07 08/09/19 05:07 A&P Assessment and plan (1) Hypoglycemia: Status: Acute (2) Recurrent falls: Currently with inability to walk which is new for her Status: Acute (3) Diabetes mellitus type 2, noninsulin dependent: Status: Chronic (4) Atrial fibrillation: Status: Suspected Qualifiers: Atrial fibrillation type: unspecified Qualified Code(s): I48.91 - Unspecified atrial fibrillation (5) Hypertension: Status: Chronic Qualifiers: Hypertension type: essential hypertension Qualified Code(s): I10 - Essential (primary) hypertension (6) Asthma: Status: Chronic Qualifiers: Asthma severity: unspecified severity Asthma persistence: unspecified Asthma complication type: unspecified Qualified Code(s): J45.909 - Unspecified asthma, uncomplicated (7) Gout: Status: Chronic Qualifiers: Gout site: unspecified site Gout etiology: unspecified cause Chr onicity: chronic Presence of tophus: without tophus Qualified Code(s): M1A.9XX0 - Chronic gout, unspecified, without tophus (tophi) (8) GERD (gastroesophageal reflux disease): Status: Chronic Qualifiers: Esophagitis presence: without esophagitis Qualified Code(s): K21.9 - Gastro-esophageal reflux disease without esophagitis (9) Hard of hearing: Status: Acute Qualifiers: Hearing loss type: unspecified Laterality: bilateral Qualified Code(s): H91.93 - Unspecified hearing loss, bilateral (10) Obstructive sleep apnea: Status: Acute Additional A&P Information Changed to q. before meals and at bedtime Accu-Cheks Sliding scale insulin Continue to hold oral hypoglycemic agents PT OT evaluation greatly appreciated Serial neuro checks business and services instructor trying to help me get in touch with someone who can provide information about her baseline and possibilities of assistance in the home Continue home CPAP Inhalers if needed Remains on a decreased dose of bumetanide plus potassium Continue diltiazem Continue to hold isosorbide, lisinopril digoxin, metolazone >> I question whether or not she is really taking some of these Keep on decreased dose of gabapentin SCDs for DVT prophylaxis Holding any pharmacological prophylaxis secondary to hematoma on forehead and very high fall risk Telemetry monitoring Supportive care otherwise Patient is adamantly refusing any consideration for skilled placement. She will consider home health but I honestly think she already has some. Full code Attestations Medical Necessity Statement*: Patient requires ongoing inpatient stay for further management of medications and determination of baseline functional status and safe disposition plan. Coding Level of Care Code Acute X Ray Nurse for Zoltan Dickens Diagnoses Hypoglycemia E16.2 Recurrent falls R29.6 Diabetes mellitus type 2, noninsulin dependent E11.9 Atrial fibrillation I48.91 Atrial fibrillation type: unspecified Hypertension I10 Hypertension type: essential hypertension Asthma J45.909 Asthma severity: unspecified severity Asthma persistence: unspecified Asthma complication type: unspecified Gout M1A.9XX0 Gout site: unspecified site Gout etiology: unspecified cause Chronicity: chronic Presence of tophus: without tophus GERD (gastroesophageal reflux disease) K21.9 Esophagitis presence: without esophagitis Hard of hearing H91.93 Hearing loss type: unspecified Laterality: bilateral Obstructive sleep apnea G47.33
--- NOTE | 2019-08-09 13:30 | PC.NURSE ---
Patient taken to MRI by [facility] non-emergent transport
[2019-08-09 16:42] LABS: Glucose Point of Care 235 mg/dL (70-110)
[2019-08-09 20:36] LABS: Glucose Point of Care 81 mg/dL (70-110)
[2019-08-10] VITALS (8 sets, daily range): BP systolic 127–147; BP diastolic 66–76; PULSE 74–93; RESP 18–20; TEMP 36.7–36.8; O2SAT 89–94
[2019-08-10 06:36] LABS: Basophils % 0.2 %; Eosinophils # 0.1 10^3/uL (0.0-0.8); Eosinophils % 1.7 %; Hematocrit 32.6 % (37.0-47.0); Hemoglobin 9.5 g/dL (11.5-15.3); Lymphocytes # 1.4 10^3/uL (0.8-4.8); Lymphocytes % 23.2 %; Mean Corpuscular HGB Conc 29.1 g/dL (30.0-36.0); Mean Corpuscular Hemoglobin 27.1 pg (28.0-34.0); Mean Corpuscular Volume 92.9 fL (81-99); Mean Platelet Volume 9.3 fL (7.4-10.4); Monocytes # 0.5 10^3/uL (0.2-0.9); Neutrophils # 3.9 10^3/uL (1.8-7.7); Neutrophils % 65.4 %; Nucleated Red Blood Cells % 0 %; Platelet Count 233 10^3/cmm (130-400); Red Blood Count 3.51 10^6/uL (4.1-5.3); Red Cell Distribution Width 14.1 % (12.1-15.1)
[2019-08-10 06:51] LABS: Glucose Point of Care 165 mg/dL (70-110)
[2019-08-10 06:52] LABS: Anion Gap 16.1 (5-19); Blood Urea Nitrogen 18 mg/dL (8-23); Calcium 9.5 mg/dL (8.5-10.5); Carbon Dioxide 27 mmol/L (22-29); Chloride 99 mmol/L (98-107); Glucose 155 mg/dL (65-115); Osmolality Calculated 286 mOsm/kg (285-295); Potassium 4.1 mmol/L (3.5-5.1); Sodium 138 mmol/L (136-145)
[2019-08-10] MEDS: albuterol 8 gm MDI 2 PUFF INHALATION (08:16)
[2019-08-10] MEDS: citalopram 20 mg Tablet PO (08:57)
[2019-08-10] MEDS: pantoprazole DR 40 mg Tablet PO ×2 (08:57→18:34)
[2019-08-10] MEDS: bumetanide 1 mg Tablet 2 MG PO (08:57)
[2019-08-10] MEDS: dilTIAZem 60 mg Tablet PO ×3 (08:58→20:53)
--- NOTE | 2019-08-10 09:49 | PC.CHAP ---
Pastoral Care Encounter/Spiritual Assessment Type of Contact [] Declined instructional technologist visit [] Patient/Family/Request visit [] Outpatient visit [] Follow-up visit [] Physician referral [] Code/Alert [x] Routine visit [] Staff referral [] Actively dying [] Patient sleeping [] Family support [] [] Out of room [] Palliative care [] [] Receiving care in room [] Pre-surgical visit [] Trauma [] Long length of stay [] ICU visit [] Other: Relational/Emotional Strength [] Patient feels connected with others/family/visitors/staff [] Distress [] Loneliness/isolation [] Abandonment Spirituality of Patient [] Person of Epnny [] Attends Sabianist of their Penny [] Believes in Prayer [] Reads Bible or Latter Day materials [] There are Spiritual issues to be addressed Orthopaedic Doctor Interventions [x] Prayer [] Active listening [] Non-anxious presence [] Spiritual/emotional support [] Crisis/trauma care [] Spiritual counseling [] Bereavement support [] Provided bereavement packet [] Provided Bible/devotional materials [] Provided toy/stuffed animal, coloring book to patient or family member [] Provided Communion [] Anointing/[place] [] Salvation [x] Completed spiritual assessment [] Other: Impact on Illness or Injury [] Angry [] Fearful [] Anxious [] Often cries [] Exhaustion [] Unable to work [] Unable to attend muslim [] Unable to walk/stand [] Unable to read [] Unable to drive [] Unable to eat/drink [] Unable to sleep [] Unable to be with family [] Patient intubated [] Other: Summary Patient difficult to communicate, hard of hearing. Patient wanting up. Needs to be watched Time spent with patient 10 min
[2019-08-10 11:19] LABS: Glucose Point of Care 287 mg/dL (70-110)
[2019-08-10 16:57] LABS: Glucose Point of Care 153 mg/dL (70-110)
[2019-08-10 21:46] LABS: Glucose Point of Care 173 mg/dL (70-110)
--- NOTE | 2019-08-10 23:10 | P.PN_ITS ---
Subjective Subjective: Interval history: Patient is more alert and able to converse today. Amazingly she did better with physical therapy today. We are able to confirm with an extended family member that patient is normally independent in her ADLs but does have somebody come and to help with a few things. She normally ambulates okay. She has had some falls at times. She herself describes a significant fall that she had in an elevator where she had to be taken to [facility]. Yesterday I do not know that she could hear me but today she says that she fell because she tripped over stuff. Records in the emergency room indicate that she took a couple of steps and went down. She had had a fall at home prior to coming in. I tried to get a sense from her if any of her medicines have changed. At first she did indicate that her diabetes medicine was increased from 1 tablet a day to 2 tablets a day. That could potentially account for the hypoglycemia. Later however it sounded like that may have happened a while back. I think she may have been talking about an increase in her bumetanide from 2 mg twice a day to 4 mg twice a day. I was able to find a clinic note from August 05 where her bumetanide was in fact increased. It is possible that that has contributed to significant hypotension and orthostasis although blood pressures have not really indicated such. Not really demonstrating any focal deficits to speak of at any time on my examination. Her baseline cognition is not the same as everyone but she otherwise can do the things that everyone can do according to family. Patient again really wants to go home. PT and OT both felt that based on today's examination that would be appropriate, particularly with some home health. She is not yet back at baseline and remains off of many medications. Vitals/I&O/Wt Last Vital Signs Temp 98.2 F 08/10/19 20:00 Pulse 80 08/10/19 20:25 Resp 18 08/10/19 20:00 BP 127/67 08/10/19 20:00 Pulse Ox 92 08/10/19 20:25 08/10/19 08/10/19 08/11/19 14:59 22:59 06:59 Intake Total 480 / 480 Output Total 925 / 925 Balance 480 / 480 -925 / -445 Physical Exam Const: OTHER: Continues to be more alert, remembers me from yesterday HENMT: OTHER: Forehead not as swollen today, more ecchymoses around both eyes. Eye: OTHER: Pupils reactive Neck/C-Spine: OTHER: Supple Resp: OTHER: Clear to auscultation bilaterally Cardio: OTHER: Regular GI: OTHER: Abdomen soft, nontender : OTHER: Seems to be able to hear better Extremity: NARRATIVE EXTREMITY EXAM: Right lower extremity is larger than left lower extremity but no significant change from yesterday, skin is dry. Patient has some bony deformities noted of the hands distally Neuro: OTHER: Speech clear and consistent with somebody with hearing loss, moves all extremities, gait is improved and able to sit up to side of bed Psych: OTHER: Normal affect, very cheerful Skin: OTHER: Skin tear to right elbow with sutures, scattered bruises to arms in addition to what is on the forehead Data : 08/10/19 05:39 08/10/19 05:39 A&P Assessment and plan (1) Hypoglycemia: Status: Resolved (2) Recurrent falls: Currently with inability to walk which is new for her Status: Acute (3) Diabetes mellitus type 2, noninsulin dependent: Status: Chronic (4) Atrial fibrillation: Status: Suspected Qualifiers: Atrial fibrillation type: unspecified Qualified Code(s): I48.91 - Unspecified atrial fibrillation (5) Hypertension: Status: Chronic Qualifiers: Hypertension type: essential hypertension Qualified Code(s): I10 - Essential (primary) hypertension (6) Asthma: Status: Chronic Qualifiers: Asthma severity: unspecified severity Asthma persistence: unspecified Asthma complication type: unspecified Qualified Code(s): J45.909 - Unspecified asthma, uncomplicated (7) Gout: Status: Chronic Qualifiers: Gout site: unspecified site Gout etiology: unspecified cause Chronicity: chronic Presence of tophus: without tophus Qualified Code(s): M1A.9XX0 - Chronic gout, unspecified, without tophus (tophi) (8) GERD (gastroesophageal reflux disease): Status: Chronic Qualifiers: Esophagitis presence: without esophagitis Qualified Code(s): K21.9 - Ga stro-esophageal reflux disease without esophagitis (9) Hard of hearing: Status: Acute Qualifiers: Hearing loss type: unspecified Laterality: bilateral Qualified Code(s): H91.93 - Unspecified hearing loss, bilateral (10) Obstructive sleep apnea: Status: Acute Additional A&P Information Sliding scale insulin as needed Resume half dose glipizide/metformin at discharge Hold pioglitazone currently Check A1c Resume lisinopril Continue Cardizem at current dosing Continue to hold isosorbide, digoxin, metolazone Continue decreased dose of bumetanide Continue decreased dose of gabapentin PT OT evaluation greatly appreciated Continue neurochecks Continue home CPAP Inhalers if needed SCDs for DVT prophylaxis Holding any pharmacological prophylaxis secondary to hematoma on forehead and very high fall risk Supportive care otherwise Patient is agreeable to consideration for home health Tentative plan for discharge tomorrow if continues to do well Full code Attestations Medical Necessity Statement*: Requires ongoing inpatient stay will be continue to adjust medications as noted and monitor for recurrent falls. Patient lives alone and with repeated falls, hypoglycemia and the like lately, at high risk for acute decline in the home setting without any help around. I have encouraged patient to find somebody who can stay with her at least for a few days but we have not gotten to that point that she can tell us who yet. Coding Level of Care Code Acute Account General Manager for Chg Fwd Diagnoses Hypoglycemia E16.2 Recurrent falls R29.6 Diabetes mellitus type 2, noninsulin dependent E11.9 Atrial fibrillation I48.91 Atrial fibrillation type: unspecified Hypertension I10 Hypertension type: essential hypertension Asthma J45.909 Asthma severity: unspecified severity Asthma persistence: unspecified Asthma complication type: unspecified Gout [id number].[id number] Gout site: unspecified site Gout etiology: unspecified cause Chronicity: chronic Presence of tophus: without tophus GERD (gastroesophageal reflux disease) K21.9 Esophagitis presence: without esophagitis Hard of hearing H91.93 Hearing loss type: unspecified Laterality: bilateral Obstructive sleep apnea G47.33
[2019-08-11 01:14] VITALS: BP 134/67; PULSE 74; RESP 18; TEMP 36.8; O2SAT 92
[2019-08-11 01:20] VITALS: PULSE 86; RESP 20; O2SAT 93
[2019-08-11 04:00] VITALS: BP 165/77; PULSE 69; RESP 22; TEMP 37.3; O2SAT 93
[2019-08-11 06:50] LABS: Glucose Point of Care 158 mg/dL (70-110)
[2019-08-11 07:48] VITALS: BP 146/76; PULSE 70; RESP 18; TEMP 36.8; O2SAT 94
[2019-08-11] MEDS: lisinopril 2.5 mg Tablet PO (08:32)
[2019-08-11] MEDS: bumetanide 1 mg Tablet 2 MG PO (08:32)
[2019-08-11] MEDS: pantoprazole DR 40 mg Tablet PO (08:32)
[2019-08-11] MEDS: citalopram 20 mg Tablet PO (08:32)
[2019-08-11] MEDS: dilTIAZem 60 mg Tablet PO (08:32)
[2019-08-11] MEDS: albuterol 8 gm MDI 2 PUFF INHALATION (09:29)
[2019-08-11 09:30] VITALS: PULSE 89; RESP 15; O2SAT 94
[2019-08-11 10:39] LABS: Estmated Average Glucose 134; Hemoglobin A1C 6.3 % (4.0-6.0)
[2019-08-11 11:25] LABS: Glucose Point of Care 192 mg/dL (70-110)
--- NOTE | 2019-08-11 12:12 | PC.SOCIAL ---
Pg 2 IMM Explained to Pt Pg 2 IMM. Pt verbally understands. No questions voiced. Provided pt a copy & left on pt's bedside table. Signed, dated, & timed a copy & placed in pt's chart.
--- NOTE | 2019-08-11 12:26 | P.DS_ITS ---
Discharge Providers Date of Admission: 08/08/19 16:31 Date of Discharge: August 11, 2019 Attending Provider at Admission: Chata Armijo MD Attending Provider at Discharge: Chata Armijo MD Primary Care Provider: HO Silva Diagnoses at Discharge Discharge Diagnosis (1) Hypoglycemia: Status: Resolved (2) Recurrent falls: Status: Acute (3) Diabetes mellitus type 2, noninsulin dependent: Status: Chronic (4) Atrial fibrillation: Status: Suspected Problem details: Suspected paroxsymal diagnosis based on medications Qualifiers: Atrial fibrillation type: unspecified Qualified Code(s): I48.91 - Unspecified atrial fibrillation (5) Hypertension: Status: Chronic Qualifiers: Hypertension type: essential hypertension Qualified Code(s): I10 - Essential (primary) hypertension (6) Asthma: Status: Chronic Qualifiers: Asthma complication type: unspecified Asthma persistence: unspecified Asthma severity: unspecified severity Qualified Code(s): J45.909 - Unspecified asthma, uncomplicated (7) Gout: Status: Chronic Qualifiers: Chronicity: chronic Gout etiology: unspecified cause Gout site: unspecified site Presence of tophus: without tophus Qualified Code(s): M1A.9XX0 - Chronic gout, unspecified, without tophus (tophi) (8) GERD (gastroesophageal reflux disease): Status: Chronic Qualifiers: Esophagitis presence: without esophagitis Qualified Code(s): K21.9 - Gastro-esophageal reflux disease without esophagitis (9) Hard of hearing: Status: Acute Qualifiers: Hearing loss type: unspecified Laterality: bilateral Qualified Code(s): H91.93 - Unspecified hearing loss, bilateral (10) Obstructive sleep apnea: Status: Acute Problem details: Wears CPAP Reason for Visit Reason for Visit: Reason For Visit: fall Hospital Course Hospital Course: Patient is a pleasant lady who presented to the emergency room after a fall at home. Specific details about exactly what happened or not clear but patient later in the hospital stay described tripping over something and falling at home. EMS found her to have a blood sugar in the 40s. She denies taking any excess medication and does not really know why her blood sugars had dropped so low. She does not check her blood sugars very often but she does have a glucometer. Patient was evaluated in the emergency room. She is on sulfonylureas. She really wanted to go home. She was given a trial of ambulation and took a couple of steps and fell again in the ER. She sustained an additional hematoma to her forehead. She had another CT of her head as well as a CT of her neck. These revealed forehead scalp hematoma but no acute intracranial abnormalities. Patient was admitted initially to observation. She had telemetry initially noted no evidence of arrhythmias identified. Serial neuro exams did not show progressive changes. Patient seemed to have a hard time taking care of activities such as walking around and getting up. She insisted that she normally could do everything herself. Blood sugars did not remain low at that time. Focused neurological exam did not reveal any specific deficits beyond some gait instability and a broad-based, somewhat waddling gait along with some decreased sensation in the feet. Patient did so poorly walking the day after admission that physical and occupational therapy both felt that she would probably need skilled placement. By the following day she had remarkable improvement and both therapy teams felt that she would be okay for discharge home with home health. Patient was agreeable to home health. I made multiple medication changes. We were not able to get in touch with her pharmacy provider to see if the medications that were listed on external medication list available to us were actually filled. She has digoxin nausea medication but digoxin level was subtherapeutic. I did not give her isosorbide nor metolazone and decrease Bumex to once a day at half the prior dose. I also decrease gabapentin dosing. I held pioglitazone secondary to edema that had led to the increased diuretic s she had been on prior to admission. I did go on and continue glipizide/metformin. I am not sure patient would be capable of giving herself insulin consistently. She had already received significant fluid in the emergency room so was unable to verify that she was orthostatic. Patient was extremely eager to be discharged and as long as she was agreeable with home health it was felt that this could be accomplished. I did ask for PT and OT to evaluate her home setting with a particular focus on safety. Also asked for home health nurse to monitor her medication usage as well as blood sugars and blood pressure. Other areas of need can be addressed as identified. Patient was able to explain concerns and plans back to me and asked some questions. She is very hard of hearing making it challenging to interact with her. Patient insists that she tripped over stuff when she fell every time. I think it is highly probable that reasons for this fall also include multisensory deficits as a contributor. Physical Exam Narrative: EXAM NARRATIVE: Awake, alert, has a frontal hematoma that extends around both eyes, more prominent presently on the right than the left. Swelling has gone down significantly but is still there. Extraocular movements are intact. She has no pain with movement nor any photophobia. Other than the hematoma face is symmetric. Speech is clear although has a sound consistent with somebody who is hard of hearing. Handgrip is equal bilaterally. Strength is equal at both feet. Right lower extremity is larger than the left lower extremity chronically. Gait is slightly broad-based but patient is able to ambulate on her own. Discharge Data Data Completed and Pending: Completed Studies During Hospitalization Category Date Time Status CT cervical spin wo con* [id number] Urge nt Cat Scan 08/08/19 11:[address] cervical spin wo con* [id number] Urge nt Cat Scan 08/08/19 15:[address] head wo con* 7 0450 Urgent Cat Scan 08/08/19 11:[address] head wo con* 7 0450 Urgent Cat Scan 08/08/19 15:51 Completed XR chest 1V anum ble [id number] Urgent Exams 08/08/19 11:00 [place] [id number] Urgent Ultrasound 08/08/19 11:16 Completed Pending at discharge Category Date Time Status Arterial Blood Ga s Full Stat Lab 08/08/19 12:05 Results Labs from last 24 hours 08/11/19 08/11/19 08/11/19 11:15 06:44 05:39 POC Glucose 192 158 Estimat Average Gl ucose 134 Hemoglobin A1c 6.3 H 08/10/19 08/10/19 21:10 16:49 POC Glucose 173 153 Estimat Average Gl ucose Hemoglobin A1c Vitals: Last Vital Signs Temp 98.3 F 08/11/19 07:48 Pulse 89 08/11/19 09:30 Resp 15 08/11/19 09:30 BP 146/76 08/11/19 07:48 Pulse Ox 94 08/11/19 09:30 Discharge Plan Discharge Patient Disposition: Home Health Service Condition: Stable Prescriptions: New gabapentin 100 mg capsule 100 mg PO TID Qty: 90 RF: 0 Continued levalbuterol HCl [Xopenex] 0.63 mg/3 mL solution for nebulization 0.63 mg INHALATION ONCE Qty: 3 RF: 0 magnesium 200 mg tablet 200 mg PO QDAY RF: 0 glipizide-metformin 5-500 mg tablet 1 tab PO BID RF: 0 diltiazem HCl 90 mg capsule,extended release 12 hr 90 mg PO BID RF: 0 citalopram 20 mg tablet 20 mg PO QDAY RF: 0 fluticasone propion-salmeterol [Advair Diskus] 250-50 mcg/dose blister with device 1 inh INHALATION BID RF: 0 albuterol sulfate [Ventolin HFA] 90 mcg/actuation HFA aerosol inhaler 2 puff INHALATION Q4H PRN (Reason: Shortness Of Breath) RF: 0 lisinopril 2.5 mg tablet 2.5 mg PO QDAY RF: 0 omeprazole 20 mg capsule,delayed release(DR/EC) 20 mg PO BID 90 Days Qty: 180 RF: 0 cetirizine 10 mg capsule 10 mg PO QDAY Qty: 90 RF: 0 Spiriva with HandiHaler 18 mcg capsule, w/inhalation device 1 cap INHALATION QDAY Qty: 0 RF: 0 Changed bumetanide 2 mg tablet 2 mg PO DAILY 30 Days Qty: 120 RF: 0 potassium chloride 10 mEq Tablet,Er Particles/Crystals 10 meq PO DAILY Qty: 0 RF: 0 Held digoxin [Digox] 125 mcg (0.125 mg) tablet 125 mcg PO QDAY RF: 0 Hold Instructions: Resume on 08/27/19. Discuss with PCP before resuming promethazine-DM 6.25-15 mg/5 mL syrup 5 ml PO Q6H PRN (Reason: cough) Qty: 473 RF: 0 Hold Instructions: Resume on 08/27/19. Discuss with PCP before resuming pioglitazone 15 mg Tablet 15 mg PO DAILY RF: 0 Hold Instructions: Resume on 08/27/19. Discuss with PCP before resuming Discontinued isosorbide mononitrate 30 mg tablet extended release 24 hr See Rx Instructions PO QAM RF: 0 metolazone 5 mg tablet 5 mg PO BID RF: 0 gabapentin 300 mg capsule 300 mg PO TID RF: 0 Discharge Orders: Discharge Order (Routine); Ordered 08/11/19 Ordered By: Chata Armijo Referrals: [place],Jessica, [facility]TER [Primary Care Provider] - 4-7 days (APPOINTMENT WITH [facility] ON TUESDAY, July AT 10:30AM) Discharge Diet: Diabetic Discharge Activity: As per PT/OT instructions Patient Instructions: Hypoglycemia, Fall Prevention for Older Adults (GEN) Activity Restrictions/Additional Instructions: Keep a record of your blood sugars and blood pressures. Take this with you to follow up with Jessica Pena. Discharge Date/Time: 08/11/19 15:02 Discharge Attestations Time Spent in Discharge Care*: greater than 30 min Specific Discharge Activities: Specific discharge activities: educating patient, discussing with protective services case worker/social workers/dc planners, documenting/other paperwork and evaluating patient/reviewing data Quality Metrics Clinical Quality Measures During this hospital stay, did patient experience: None Coding Level of Care Code Acute Material Handling Crew Supervisor for Chg Fwd Diagnoses Hypoglycemia E16.2 Recurrent falls R29.6 Diabetes mellitus type 2, noninsulin dependent E11.9 Atrial fibrillation I48.91 Atrial fibrillation type: unspecified Hypertension I10 Hypertension type: essential hypertension Asthma J45.909 Asthma complication type: unspecified Asthma persistence: unspecified Asthma severity: unspecified severity Gout [id number].[id number] Chronicity: chronic Gout etiology: unspecified cause Gout site: unspecified site Presence of tophus: without tophus GERD (gastroesophageal reflux disease) K21.9 Esophagitis presence: without esophagitis Hard of hearing H91.93 Hearing loss type: unspecified Laterality: bilateral Obstructive sleep apnea G47.33
--- NOTE | 2019-08-11 13:39 | PC.RESP ---
Smoking Cessation and Pulmonary Rehab information to patient with a schedule of classes.
[2019-08-11 14:32] VITALS: PULSE 89; RESP 15; O2SAT 94
--- NOTE | 2019-08-11 15:05 | PC.NURSE ---
Pt discharged to home via [facility].
--- NOTE | 2019-08-13 11:28 | PC.SOCIAL ---
Called [facility] to call in script for Gabapentin 100mg one tab three times daily. Per Edilma with [facility] did not receive this. Pharmacy took verbal order and read back to confirm. Updated pharmacy the 300mg has been discontinued.
== END 2019-08-11 15:02 | disposition home health service (06) | DRG 639 ==
LOC: ER 17:12 → MEDSURG 18:01
PROVIDERS: Emergency Medicine; Physician Assistant; Admitting Provider Hospitalist; PCP Nurse Practitioner Family; Visit Provider Hospitalist
DX: E11.649 Type 2 diabetes mellitus with hypoglycemia without coma (principal); E11.65 Type 2 diabetes mellitus with hyperglycemia; R41.82 Altered mental status, unspecified; Z79.84 Long term (current) use of oral hypoglycemic drugs; R29.6 Repeated falls; S00.03XA Contusion of scalp, initial encounter; J45.909 Unspecified asthma, uncomplicated; K21.9 Gastro-esophageal reflux disease without esophagitis; M1A.9XX0 Chronic gout, unspecified, without tophus (tophi); H91.90 Unspecified hearing loss, unspecified ear; I10 Essential (primary) hypertension; G47.33 Obstructive sleep apnea (adult) (pediatric); E89.0 Postprocedural hypothyroidism; I34.0 Nonrheumatic mitral (valve) insufficiency; I48.91 Unspecified atrial fibrillation; Z79.51 Long term (current) use of inhaled steroids; X58.XXXA Exposure to other specified factors, initial encounter
CPT/HCPCS: 12345; 36415; 36416; 36600; 70450; 71045; 72125; 80048; 80051; 80053; 80162; 81000; 81003; 82550; 82810; 82962; 83036; 83605; 83735; 83880; 83986; 84484; 85025; 93005; 93971; 94640; 94660; 96372; 96375; 97116; 97162; 97166; 97530; 97535; 99283; J1815; J3535

== ENCOUNTER → 2019-11-19 15:15 | Outpatient (BNVA) | payer MEDICARE, MEDICAID, SELFPAY | PROVIDERS: PCP Nurse Practitioner Family; Visit Provider Nurse Practitioner Family | DX: N39.0 Urinary tract infection, site not specified (principal); J45.909 Unspecified asthma, uncomplicated | CPT/HCPCS: 81000 ==

== ENCOUNTER → 2020-01-21 11:02 | Outpatient (BNVA) | payer MEDICARE, MEDICAID, SELFPAY | PROVIDERS: PCP Nurse Practitioner Family; Visit Provider Nurse Practitioner Family | DX: E11.9 Type 2 diabetes mellitus without complications (principal); I10 Essential (primary) hypertension; I87.2 Venous insufficiency (chronic) (peripheral); R60.0 Localized edema; Z51.81 Encounter for therapeutic drug level monitoring; Z79.899 Other long term (current) drug therapy | CPT/HCPCS: 82043 ==

== ENCOUNTER 2020-04-21 11:37 | Outpatient (CLI) | payer MEDICARE, MEDICAID, SELFPAY ==
--- NOTE | 2020-04-21 11:55 | XR_ITS ---
WS: [id number] Exam: XR chest 2V* [id number] Date/Time of Exam: 04/21/2020 12:03 PM Reason For Exam: rule out pneumonia Comparison 08/08/2019. The lungs are fully inflated and clear. Normal cardiomediastinal structures. Advanced DJD of both bertha dominguez. XR/XR chest 2V* [id number] IMPRESSION: 1. No acute cardiopulmonary finding. No change.
[2020-04-21 13:23] LABS: Basophils % 0.3 %; Eosinophils # 0.1 10^3/uL (0.0-0.8); Eosinophils % 1.2 %; Hematocrit 36.7 % (37.0-47.0); Lymphocytes # 1.3 10^3/uL (0.8-4.8); Lymphocytes % 20.2 %; Mean Corpuscular Hemoglobin 27.8 pg (28.0-34.0); Mean Corpuscular Volume 92.9 fL (81-99); Mean Platelet Volume 9.1 fL (7.4-10.4); Monocytes # 0.4 10^3/uL (0.2-0.9); Monocytes % 5.6 %; Neutrophils # 4.78 10^3/uL (1.8-7.7); Neutrophils % 72.4 %; Nucleated Red Blood Cells % 0 %; Platelet Count 294 10^3/cmm (130-400); Red Blood Count 3.95 10^6/uL (4.1-5.3); Red Cell Distribution Width 13.4 % (12.1-15.1); White Blood Count 6.6 10^3/uL (4.0-10.0)
[2020-04-22 14:38] LABS: Alternaria Alternata (M6) Ige <0.10 kU/L; Alternaria Class 0; Bermuda Class 0; Bermuda Grass (G2) Ige <0.10 kU/L; Cat Dander (E1) Ige <0.10 kU/L; Cat Dander Class 0; Common Ragweed (Short) (W1) Ig <0.10 kU/L; D. Farinae Class 0; Dermatophagoides Class 0; Dermatophagoides Farinae (D2) <0.10 kU/L; Dermatophagoides Pteronyssinus <0.10 kU/L; Dog Dander (E5) Ige <0.10 kU/L; Dog Dander Class 0; Elm (T8) Ige <0.10 kU/L; Elm Class 0; English Plantain (W9) Ige <0.10 kU/L; English Plantain Class 0; House Dust (Greer) (H1) Ige <0.10 kU/L; House Dust (Hollister- Stier) <0.10 kU/L; House Dust Class 0; Immunoglobulin E 199 kU/L (<OR=114); Johnson Grass (G10) Ige <0.10 kU/L; Johnson Grass Cl 0; June Grass Class 0; June Grass(Kentucky Blue) (G8) <0.10 kU/L; Lamb'S Quarters (Goose Foot) <0.10 kU/L; Lamb'S Quarters Class 0; Maple (Box Elder) (T1) Ige <0.10 kU/L; Maple Class 0; Meadow Fescue (G4) Ige <0.10 kU/L; Meadow Fescue Class 0; Mucor Racemosus Class 0; Oak (T7) Ige <0.10 kU/L; Oak Class 0; Orchard Grass (Cocksfoot) (G3) <0.10 kU/L; Penicillium Class 0; Penicillium Notatum (M1) Ige <0.10 kU/L; Perennial Rye Grass (G5) Ige <0.10 kU/L; Perennial Rye Grass Class 0; Ragweeed Class 0; Rough Marsh Elder (W16) Ige <0.10 kU/L; Rough Marsh Elder Class 0; Sweet Vernal Class 0; Sweet Vernal Grass (G1) Ige <0.10 kU/L; Timothy Grass (G6) Ige <0.10 kU/L; Timothy Grass Class 0
[2020-04-23 16:33] LABS: Immunoglobulin E 224 kU/L (<OR=114)
[2020-04-23 18:34] LABS: Aspergillus Fumigatus, Igg Ab, 90.5 mg/L (<=102)
== END 2020-04-21 11:38 | disposition home or self-care (01) ==
PROVIDERS: PCP Nurse Practitioner Family; Visit Provider Internal Medicine Pulmonary Disease
DX: J18.9 Pneumonia, unspecified organism (principal); J45.909 Unspecified asthma, uncomplicated
CPT/HCPCS: 36415; 71046; 82785; 85025; 86003

== ENCOUNTER → 2020-09-18 09:15 | Outpatient (BNVA) | payer MEDICARE, MEDICAID, SELFPAY | PROVIDERS: PCP Nurse Practitioner Family; Visit Provider Nurse Practitioner Family | DX: I10 Essential (primary) hypertension (principal); E11.9 Type 2 diabetes mellitus without complications; Z51.81 Encounter for therapeutic drug level monitoring; Z79.899 Other long term (current) drug therapy; Z01.89 Encounter for other specified special examinations | CPT/HCPCS: 80053; 80162; 83036 ==

== ENCOUNTER → 2020-09-23 11:09 | Outpatient (BNVA) | payer MEDICARE, MEDICAID, SELFPAY | PROVIDERS: PCP Nurse Practitioner Family; Visit Provider Nurse Practitioner Family | DX: Z51.81 Encounter for therapeutic drug level monitoring (principal); Z79.899 Other long term (current) drug therapy; I48.91 Unspecified atrial fibrillation | CPT/HCPCS: 80162 ==

== ENCOUNTER 2020-10-06 14:08 | Emergency (ER) | payer MEDICARE, MEDICAID, SELFPAY ==
[2020-10-06 14:57] VITALS: BP 169/80; PULSE 88; RESP 18; TEMP 36.7; O2SAT 94; BMI 36.6
--- NOTE | 2020-10-06 15:09 | XRR_ITS ---
PROCEDURE INFORMATION: Exam: XR Soft Tissue Neck Exam date and time: 10/06/2020 3:48 PM Age: 75 years old Clinical indication: Pain; Other: PT swallowed plastic; Patient HX: PT says she swallowed a piece of a plastic fork today TECHNIQUE: Imaging protocol: XR of the soft tissues of the neck. COMPARISON: CT cervical spin wo con* [id number] 08/08/2019 4:16 PM FINDINGS: Airway: No radiopaque foreign body identified within the upper respiratory tract. No abnormal narrowing. Soft tissues: Normal. Normal epiglottis. Bones/joints: No malalignment. Mild DJD of the mid and lower cervical spine. Please note, evaluation of the C7 vertebral body is limited on lateral view. Graft XR/XR soft tissue neck [id number] IMPRESSION: No radiopaque foreign body identified within the upper respiratory tract.
--- NOTE | 2020-10-06 17:13 | ED_ITS ---
HPI - General Adult General: Chief complaint: Airway/Esophagus Foreign Body Stated complaint: POSSIBLE FB INGESTION Time Seen by Provider: 10/06/20 16:20 History of Present Illness: HPI narrative: Patient is a 75-year-old female comes to the ED with possible foreign body ingestion. Patient says today she noticed a piece of her plastic fork was missing. She is unsure if she swallowed it or not. Denies any feeling of foreign body in throat or any airway ob struction or trouble breathing. Associated symptoms: Deny chest pain, dyspnea, headache(s), nausea, rash, palpitations or vomiting Review of Systems Narrative: Possible swallowed foreign body. Const: Denies: fever(s), chills or fatigue Eyes: Denies: change in vision or eye discomfort ENMT: Denies: throat pain, odynophagia, nasal discharge or nasal congestion Card: Denies: chest pain, palpitations, edema, swelling of feet/ankles, dyspnea on exertion or orthopnea Resp: Denies: dyspnea, productive cough or non-productive cough GI: Denies: abdominal pain, nausea, vomiting, diarrhea, constipation or hematochezia : Denies: flank pain, dysuria or hematuria Musc: Denies: neck pain, back pain or extremity swelling Skin/Breast: Denies: rash or new lesions Neuro: Denies: headache(s), numbness in extremities or weakness in extremities PFSH ED PFSH: Medical History Asthma Diabetes mellitus type 2, noninsulin dependent Encounter for monitoring digoxin therapy GERD (gastroesophageal reflux disease) Gout Hard of hearing Hypertension Obstructive sleep apnea Wears CPAP PVCs (premature ventricular contractions) Surgical History History of bladder surgery History of cataract surgery History of cholecystectomy History of hysterectomy History of partial thyroidectomy Family History Other CAD (coronary artery disease) Hypertension Social History Smoking and tobacco status: never smoked Second hand smoke exposure: Yes Smoking risk assessment/counseling performed?: Yes Alcohol intake: never Desire information about alcohol rehabilitation?: No Counseling given: No Adopted: No Caregiver/support person: Yes Lives independently: Yes Household members: none Housing: Other Details: Senior Housing Marital status: Single Current occupational status: disabled Pets and animals: No History of recent travel: No Current gender identity: Female Physical Exam Const: COMMON NORMALS: no acute distress, patient oriented x3 and alert GENERAL APPEARANCE: cooperative and comfortable HENMT: COMMON NORMALS: normocephalic HEAD & SCALP: normocephalic MOUTH: Normal oral and palatal mucosa present THROAT: posterior oropharynx normal and uvula midline Neck/C-Spine: COMMON NORMALS: supple GENERAL: Yes normal visual inspection Resp: COMMON NORMALS: normal respiratory effort, No retractions, No use of accessory muscles and clear to auscultation bilaterally EFFORT & INSPECTION: Yes able to speak in complete sentences, No tachypneic, No respiratory distress and No labored AUSCULTATION: clear to auscultation bilaterally Cardio: COMMON NORMALS: regular rate, regular rhythm, S1 normal heart sound present, S2 normal heart sound present, No gallops present (Cardio), No clicks present (Cardio), No murmurs present (Cardio) and Peripheral pulses 2+ throughout RATE: regular rate RHYTHM: regular rhythm HEART SOUNDS: S1 normal heart sound present and S2 normal heart sound present PERIPHERAL PULSES: Peripheral pulses 2+ throughout GI: COMMON NORMALS: Normal to inspection, nondistended, normoactive bowel sounds present, Soft to palpation, non-tender and no masses PALPATION: Yes Soft to palpation : COMMON NORMALS: Yes no CVA tenderness BLADDER/KIDNEY EXAM: Yes no CVA tenderness Back/Pelvis: COMMON NORMALS: no CVA tenderness Extremity: COMMON NORMALS: normal to inspection Neuro: COMMON NORMALS: patient oriented x3 and moves all extremities SENSORIUM/ORIENTATION: Yes alert Skin: GENERAL SKIN EXAM: dry skin Course Vital Signs: Vital signs: Vital Signs Temperature 98.1 F 10/06/20 14:57 Pulse Rate 84 10/06/20 17:48 Respiratory Rate 20 H 10/06/20 17:48 Blood Pressure 162/76 10/06/20 17:48 Pulse Oximetry 96 10/06/20 17:48 MDM - General Adult MDM Narrative: Medical decision making narrative: Patient is a 75-year-old female comes to the ED with possible swallowed foreign body. Says a piece of her plastic fork was missing and she is unsure if she swallowed it or not. Denies any shortness of breath, trouble breathing or foreign body sensation in throat. Exam is benign. Vitals stable. X-ray of soft tissue neck showed no radiopaque foreign body in neck or upper respiratory tract. Patient was discharged home and told to return to the ED if she starts developing any abdominal pain, nausea/vomiting or bloody stool. She was told to follow-up with her PCP in 7 to 10 days for reevaluation. Patient understood agree with plan. Imaging Data^: Other Xray: Attestation: I personally reviewed and interpreted this imaging study as follows: Radiologist's impression: X-ray soft tissue neck?no radiopaque foreign body identified within upper respiratory tract Discharge Plan Discharge Patient Disposition: Home Clinical Impression: Foreign body, swallowed Qualifiers: Encounter type: initial encounter Qualified Code(s): T18.9XXA - Foreign body of alimentary tract, part unspecified, initial encounter Condition: Stable Prescriptions: No Action magnesium 200 mg tablet 200 mg PO QDAY RF: 0 digoxin [Digox] 125 mcg (0.125 mg) tablet 125 mcg PO QDAY RF: 0 Hold Instructions: Resume on 08/27/19. Discuss with PCP before resuming oxymetazoline [Vicks Sinex 12-Hour] 0.05 % spray,non-aerosol 2 spray intranasal Q12H PRNRF: 0 prednisone 20 mg tablet 40 mg PO DAILY Qty: 10 RF: 0 levalbuterol tartrate [Xopenex HFA] 45 mcg/actuation HFA aerosol inhaler 2 inh inhalation Q6H Qty: 15 RF: 3 budesonide-formoterol [Symbicort] 80-4.5 mcg/actuation HFA aerosol inhaler 2 puff inhalation BID Qty: 10.2 RF: 3 promethazine-DM 6.25-15 mg/5 mL syrup 5 ml PO Q6H PRN (Reason: cough) Qty: 473 RF: 0 Hold Instructions: Resume on 08/27/19. Discuss with PCP before resuming bumetanide 2 mg tablet 2 mg PO DAILY Qty: 90 RF: 3 diltiazem HCl 90 mg capsule,extended release 12 hr See Rx Instructions .ROUTE .COMPLEX Qty: 180 RF: 0 glipizide-metformin 5-500 mg tablet See Rx Instructions .ROUTE .COMPLEX Qty: 360 RF: 0 cetirizine 10 mg capsule 10 mg PO QDAY Qty: 90 RF: 0 omeprazole 20 mg capsule,delayed release(DR/EC) 20 mg PO BID Qty: 180 RF: 0 potassium chloride 10 mEq tablet,ER particles/crystals 10 meq PO DAILY Qty: 90 RF: 0 lisinopril 2.5 mg tablet See Rx Instructions .ROUTE .COMPLEX Qty: 90 RF: 0 gabapentin 100 mg capsule See Rx Instructions .ROUTE .COMPLEX Qty: 90 RF: 0 citalopram 20 mg tablet See Rx Instructions .ROUTE .COMPLEX Qty: 30 RF: 0 pioglitazone 15 mg Tablet 15 mg PO DAILY RF: 0 Hold Instructions: Resume on 08/27/19. Discuss with PCP before resuming Discharge Orders: Discharge ED (Routine); Ordered 10/06/20 Ordered By: Avery Arreola Referrals: Jessica Pena FNP [Primary Care Provider] - Discharge Diet: Regular Discharge Activity: Resume usual activity Patient Instructions: Foreign Body - Swallowed Activity Restrictions/Additional Instructions: Follow-up with medical provider as directed in 7 days reevaluation. Continue taking all home medications as prescribed. Return to the ER or your medical provider immediately if you start developing nausea/vomiting, abdominal pain or bloody stool. Please read and understand discharge instructions. Thank you for choosing [facility] for your healthcare needs today. Please realize this is an emergency room and that we are providing you with a medical screening exam and this may not be complete and all inclusive of all the testing and or work up that you may need to determine your ailment or severity of your illness. It is very important that you follow up as instructed or that you return to the Emergency Department should you have concerns or if your condi tion changes or worsens in any way. Coding Level of Care Code ED Instrument And Control Technician for Zoltan Fwofe Exam Comprehensive
[2020-10-06 17:48] VITALS: BP 162/76; PULSE 84; RESP 20; O2SAT 96
== END 2020-10-06 17:49 | disposition home or self-care (01) ==
PROVIDERS: Emergency Provider Physician Assistant; PCP Nurse Practitioner Family
DX: T18.9XXA Foreign body of alimentary tract, part unspecified, initial encounter (principal); Z79.84 Long term (current) use of oral hypoglycemic drugs; E11.9 Type 2 diabetes mellitus without complications; I10 Essential (primary) hypertension; Z77.22 Contact with and (suspected) exposure to environmental tobacco smoke (acute) (chronic); X58.XXXA Exposure to other specified factors, initial encounter
CPT/HCPCS: 70360; 99282

== ENCOUNTER 2020-10-24 12:29 | Emergency (ER) | payer MEDICARE, MEDICAID, SELFPAY ==
[2020-10-24] VITALS (10 sets, daily range): BP systolic 122–170; BP diastolic 65–95; PULSE 72–92; RESP 18–19; TEMP 36.6; O2SAT 89–97; BMI 40.0
--- NOTE | 2020-10-24 12:42 | CT_ITS ---
WS: [id number] CT head wo con* [id number] REASON FOR EXAM: ams IV CONTRAST ADMINISTERED: Nonenhanced. TOTAL EXAM DLP: 775.[address] scans at [facility] use at least one of these dose optimization techniques: automat ed exposure control; mA and/or kV adjustment per patient size (includes targeted exams where dose is matched to clinical indication); or iterative reconstruction. FINDINGS: The examination is unchanged compared to previous study of 08/08/2019. Complex device anchored in the calvarium of the right posterior parietal region. This produces significant streak artifact through t he intracranial contents. No midline shift or other significant mass effect. No findings of intracranial hemorrhage and no extra-axial fluid collection. No focal acute brain parenchymal abnormality is identified in the cerebral hemispheres, brainstem, or cerebellar hemispheres. 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 The base of the skull is intact. No mastoid abnormality. CT/CT head wo con* [id number] IMPRESSION: No interval change. No acute abnormality.
--- NOTE | 2020-10-24 12:42 | W.ED.WEAKNES ---
HPI - Weakness General: Chief complaint: Altered Mental Status Stated complaint: CONFUSION Time Seen by Provider: 10/24/20 12:41 History of Present Illness: HPI Narrative: 75-year-old female brought in by EMS for concerns of altered mental status. Law enforcement had been to patient's house to evaluate her and was concerned due to increased confusion. EMS was called to the scene and patient was transported to the ER. They were concerned due to some lesions in the patient's mouth. Patient is very hard of hearing. Patient does have a cough ocular implant on the right side. Patient responds appropriately to questions. Patient reports feeling bad for about 1 week. Patient states that she is just been not feeling well. Review of Systems General: Reports: 10 or more systems reviewed and unremarkable except in HPI and below Const: Reports: malaise PFSH ED PFSH: Medical History Asthma Diabetes mellitus type 2, noninsulin dependent Encounter for monitoring digoxin therapy GERD (gastroesophageal reflux disease) Gout Hard of hearing Hypertension Obstructive sleep apnea Wears CPAP PVCs (premature ventricular contractions) Surgical History History of bladder surgery History of cataract surgery History of cholecystectomy History of hysterectomy History of partial thyroidectomy Family History Other CAD (coronary artery disease) Hypertension Social History Smoking and tobacco status: never smoked Second hand smoke exposure: Yes Smoking risk assessment/counseling performed?: Yes Alcohol intake: never Desire information about alcohol rehabilitation?: No Counseling given: No Adopted: No Caregiver/support person: Yes Lives independently: Yes Household members: none Housing: Other Details: Senior Housing Marital status: Single Current occupational status: disabled Pets and animals: No History of recent travel: No Current gender identity: Female Physical Exam Const: COMMON NORMALS: no acute distress and patient oriented x3 GENERAL APPEARANCE: cooperative HENMT: COMMON NORMALS: normocephalic, TM's normal bilaterally and Normal external nose present HEAD & SCALP: normal to inspection and normocephalic NOSE: Normal external nose present TYMPANIC MEMBRANE: TM's normal bilaterally MOUTH: other (Thrush is noted to the mouth and tongue) THROAT: posterior oropharynx normal Eye: GENERAL EYE: appearance normal, both eyes and all related structures Neck/C-Spine: COMMON NORMALS: full ROM Lymph: LYMPHATIC: no lymphadenopathy noted Chest: COMMONS NORMALS: normal inspection of the chest Resp: COMMON NORMALS: normal respiratory effort EFFORT & INSPECTION: Yes able to speak in complete sentences AUSCULTATION: wheezes Cardio: COMMON NORMALS: regular rate and regular rhythm RATE: regular rate RHYTHM: regular rhythm GI: COMMON NORMALS: Soft to palpation and non-tender PALPATION: Yes Soft to palpation : COMMON NORMALS: Yes no CVA tenderness BLADDER/KIDNEY EXAM: Yes no CVA tenderness Back/Pelvis: COMMON NORMALS: no CVA tenderness and thoracic and lumbar spine normal to inspection Extremity: COMMON NORMALS: normal to inspection Neuro: COMMON NORMALS: patient oriented x3 and moves all extremities Psych: COMMON NORMALS: mental status grossly normal and cooperative Skin: COMMON NORMALS: no rashes or lesions noted GENERAL SKIN EXAM: no rashes or lesions noted Course Vital Signs: Vital signs: Vital Signs Temperature 97.9 F 10/24/20 12:44 Pulse Rate 84 10/24/20 16:00 Respiratory Rate 18 10/24/20 16:00 Blood Pressure 170/93 10/24/20 16:00 Pulse Oximetry 91 10/24/20 16:00 MDM - Weakness MDM Narrative: Medical decision making narrative: 75-year-old female was brought in by EMS for concerns of confusion. On exam patient is very hard of hearing. Patient seemed to be appropriate when she understood the question. Lungs had some wheezing throughout. Patient had an occasional harsh cough which she attributed to her asthma. Differential diagnosis includes but not limited to pneumonia, sepsis, COVID-19, gastroenteritis, exacerbation of asthma. Chest x-ray was normal. Laboratory values had a little bit of the low white blood cell count and some mild elevation in liver enzymes. COVID-19 test was positive. I suspect some of the lab changes are due to reaction to the virus. Patient reported understanding. I did place a consult with patient case coordinator to help with monoclonal antibody infusion. Lab Data: Labs: Lab Results 10/24/20 10/24/20 10/24/20 Range/Units 13:27 14:00 14:00 WBC 3.7 L (4.0-10.0) 10^3/ uL RBC 3.83 L (4.1-5.3) 10^6/u L Hgb 10.7 L (11.5-15.3) g/dL Hct 34.7 L (37.0-47.0) % MCV 90.6 (81-99) fL MCH 27.9 L (28.0-34.0) pg MCHC 30.8 (30.0-36.0) g/dL RDW 14.1 (12.1-15.1) % Plt Count 177 (130-400) 10^3/c mm MPV 9.2 (7.4-10.4) fL Neut % (Auto) 65.0 % Lymph % (Auto) 27.5 % Jewell % (Auto) 6.7 % Eos % (Auto) 0.0 % Baso % (Auto) 0.3 % Neut # (Auto) 2.41 (1.8-7.7) 10^3/u L Lymph # (Auto) 1.0 (0.8-4.8) 10^3/u L Jewell # (Auto) 0.3 (0.2-0.9) 10^3/u L Eos # (Auto) 0.0 (0.0-0.8) 10^3/u L Baso # (Auto) 0.0 (0.0-0.1) 10^3/u L Nucleated RBC % (a uto) 0 % Nucleated RBCs # 0.0 /100WBC Specimen Type Arterial Sample Site Brachial, left ABG pH 7.42 (7.35-7.45) ABG pCO2 43.2 (35-45) mmHg ABG pO2 126.0 H (80.0-100.0) mmH g ABG HCO3 27.7 H (22-26) mmol/L ABG Base Excess 2.7 H (-2.0-2.0) mmol/ L Narendra Test Pos Hematocrit 33.5 L (37-47) % O2 Delivery Device Nc Dowel Sander Operator ID jmn Sodium 137 (136-145) mmol/L Potassium 3.2 L (3.5-5.1) mmol/L Chloride 99 (98-107) mmol/L Carbon Dioxide 25 (22-29) mmol/L Anion Gap 16.2 (5-19) BUN 16 (8-23) mg/dL Creatinine 0.5 (0.5-0.9) mg/dL GFR Calculation Not Reportable Glucose 100 (65-115) mg/dL Calculated Osmolal ity 285 (285-295) mOsm/k g Calcium 7.8 L (8.5-10.5) mg/dL Total Bilirubin 0.3 (0.15-1.2) mg/dL AST 74 H (0-32) U/L ALT 37 H (0-33) U/L Alkaline Phosphata se 70 (35-105) IU/L Troponin T Gen 5 n g/L (0-10) ng/L NT-Pro-B Natriuret Pep 209 (0-450) pg/mL Total Protein 6.2 L (6.6-8.7) g/dL Albumin 3.4 L (3.5-5.2) g/dL Globulin 2.8 (1.3-4.6) g/dL Digoxin 0.3 L (0.6-1.2) ng/mL SARS-CoV-2 Ag (Rap id) (Negative) 10/24/20 10/24/20 Range/Units 14:00 14:00 WBC (4.0-10.0) 10^3/ uL RBC (4.1-5.3) 10^6/u L Hgb (11.5-15.3) g/dL Hct (37.0-47.0) % MCV (81-99) fL MCH (28.0-34.0) pg MCHC (30.0-36.0) g/dL RDW (12.1-15.1) % Plt Count (130-400) 10^3/c mm MPV (7.4-10.4) fL Neut % (Auto) % Lymph % (Auto) % Jewell % (Auto) % Eos % (Auto) % Baso % (Auto) % Neut # (Auto) (1.8-7.7) 10^3/u L Lymph # (Auto) (0.8-4.8) 10^3/u L Jewell # (Auto) (0.2-0.9) 10^3/u L Eos # (Auto) (0.0-0.8) 10^3/u L Baso # (Auto) (0.0-0.1) 10^3/u L Nucleated RBC % (a uto) % Nucleated RBCs # /100WBC Specimen Type Sample Site ABG pH (7.35-7.45) ABG pCO2 (35-45) mmHg ABG pO2 (80.0-100.0) mmH g ABG HCO3 (22-26) mmol/L ABG Base Excess (-2.0-2.0) mmol/ L Narendra Test Hematocrit (37-47) % O2 Delivery Device Dowel Sander Operator ID Sodium (136-145) mmol/L Potassium (3.5-5.1) mmol/L Chloride (98-107) mmol/L Carbon Dioxide (22-29) mmol/L Anion Gap (5-19) BUN (8-23) mg/dL Creatinine (0.5-0.9) mg/dL GFR Calculation Glucose (65-115) mg/dL Calculated Osmolal ity (285-295) mOsm/k g Calcium (8.5-10.5) mg/dL Total Bilirubin (0.15-1.2) mg/dL AST (0-32) U/L ALT (0-33) U/L Alkaline Phosphata se (35-105) IU/L Troponin T Gen 5 n g/L 13 H (0-10) ng/L NT-Pro-B Natriuret Pep (0-450) pg/mL Total Protein (6.6-8.7) g/dL Albumin (3.5-5.2) g/dL Globulin (1.3-4.6) g/dL Digoxin (0.6-1.2) ng/mL SARS-CoV-2 Ag (Rap id) Positive H (Negative) EKG Data^: EKG 1: Attestation: I personally reviewed and interpreted this EKG as follows: (1345, EKG shows a regular rhythm most likely sinus in origin at 83 bpm. There is some artifact noted on the EKG no prior exam is available at this time for comparison.) Discharge Plan Discharge Patient Disposition: Home Clinical Impression: COVID-19 Asthma Qualifiers: Asthma severity: moderate Asthma persistence: persistent Asthma complication type: uncomplicated Qualified Code(s): J45.40 - Moderate persistent asthma, uncomplicated Hard of hearing Qualifiers: Hearing loss type: unspecified Laterality: bilateral Qualified Code(s): H91.93 - Unspecified hearing loss, bilateral Condition: Stable Prescriptions: No Action magnesium 200 mg tablet 200 mg PO DAILY RF: 0 digoxin [Digox] 125 mcg (0.125 mg) tablet 125 mcg PO DAILY MDD SEE PHARMACY COMMENT RF: 0 Hold Instructions: Resume on 08/27/19. Discuss with PCP before resuming oxymetazoline [Vicks Sinex 12-Hour] 0.05 % spray,non-aerosol 2 spray intranasal Q12H PRN (Reason: Nasal Congestion) RF: 0 levalbuterol tartrate [Xopenex HFA] 45 mcg/actuation HFA aerosol inhaler 2 inh inhalation Q6H Qty: 15 RF: 3 budesonide-formoterol [Symbicort] 80-4.5 mcg/actuation HFA aerosol inhaler 2 puff inhalation BID Qty: 10.2 RF: 3 bumetanide 2 mg tablet 2 mg PO DAILY Qty: 90 RF: 3 cetirizine 10 mg capsule 10 mg PO QDAY Qty: 90 RF: 0 omeprazole 20 mg capsule,delayed release(DR/EC) 20 mg PO BID Qty: 180 RF: 0 potassium chloride 10 mEq tablet,ER particles/crystals 10 meq PO DAILY Qty: 90 RF: 0 pioglitazone 15 mg Tablet 15 mg PO DAILY RF: 0 Hold Instructions: Resume on 08/27/19. Discuss with PCP before resuming citalopram 20 mg tablet 20 mg PO DAILY RF: 0 diltiazem HCl 90 mg capsule,extended release 12 hr 90 mg PO BID RF: 0 gabapentin 100 mg capsule 100 mg PO TID RF: 0 lisinopril 2.5 mg tablet 2.5 mg PO DAILY RF: 0 glipizide-metformin 5-500 mg tablet 2 tab PO BID RF: 0 Discharge Orders: Discharge ED (Routine); Ordered 10/24/20 Ordered By: Leopoldo Tejada Referrals: Jessica Pena FNP [Primary Care Provider] - Discharge Diet: Usual diet Discharge Activity: Increase activity as tolerated Patient Instructions: Viral Syndrome (ED), Opioid Safety Activity Restrictions/Additional Instructions: Home and rest. Continue with routine medications. Use oxygen routinely. Continue with your nebulizer machine and your inhalers as ordered. Use Tylenol as needed for pain and discomfort. Follow-up with primary care as needed. Return to the emergency room for worsening symptoms. Case management should contact you within the next 3 days for a time to set up for monoclonal antibody infusion. If you have any concerns relating this you can contact the emergency room to talk to the charge nurse. Coding Level of Care Code ED Flexible Machining System Machinist for Zoltan Fwofe Exam Comprehensive
--- NOTE | 2020-10-24 12:43 | ECG_ITS ---
[facility] ED Test Date: 2020-10-24 Pat Name: Marissa Hyde Department: Room: Gender: Female Quality Process Engineer: : 1945 Requested By: Leopoldo Herring Order Number: [id number] Odell MD: Mary Alice Mckenzie M.D. Measurements Intervals [place] Rate: 83 P: -76 [place]: 96 QRS: 71 QRSD: 104 T: 56 QT: 364 QTc: 430 Interpretive Statements JUNCTIONAL RHYTHM INCOMPLETE RIGHT BUNDLE BRANCH BLOCK [90+ ms QRS DURATION, TERMINAL R IN V1/V2, 40+ ms S IN I/aVL/V4/V5/V6] ABNORMAL RHYTHM ECG Compared to ECG 08/08/2019 11:21:01 Incomplete right bundle-branch block now present Electronically Signed On 11-06-2020 9:40:19 CDT by Mary Alice Mckenzie M.D. [email or web address]
[2020-10-24 13:38] LABS: ABG PCO2 43.2 mmHg (35-45); ABG PH Result 7.42 (7.35-7.45); Arterial Blood Gas Hematocrit 33.5 % (37-47); Base Excess ABG 2.7 mmol/L (-2.0-2.0); Blood Gas Allen Test Pos; Blood Gas Sample Site Brachial, left; Blood Gas Sample Type Arterial; HCO3 ABG 27.7 mmol/L (22-26); Oxygen Device NC
--- NOTE | 2020-10-24 14:16 | XR_ITS ---
WS: [id number] XR chest 1V portable [id number] REASON FOR EXAM: cough FINDINGS: The chest is unchanged compared to 04/21/2020. Moderate tortuosity the thoracic aorta without aneurysmal dilatation. Normal heart size. Calcified granulomatous disease in both hemithoraces. No acute pulmonary parenchymal or pleural abnormality. Degenerative spondylosis in the mid and lower thoracic spine. Previous right shoulder injury with bertha ulder joint configuration indicative of complete rotator cuff tear. XR/XR chest 1V portable [id number] IMPRESSION: No acute chest abnormality.
[2020-10-24 14:23] LABS: Basophils % 0.3 %; Hematocrit 34.7 % (37.0-47.0); Hemoglobin 10.7 g/dL (11.5-15.3); Lymphocytes % 27.5 %; Mean Corpuscular HGB Conc 30.8 g/dL (30.0-36.0); Mean Corpuscular Hemoglobin 27.9 pg (28.0-34.0); Mean Corpuscular Volume 90.6 fL (81-99); Mean Platelet Volume 9.2 fL (7.4-10.4); Monocytes # 0.3 10^3/uL (0.2-0.9); Monocytes % 6.7 %; Neutrophils # 2.41 10^3/uL (1.8-7.7); Nucleated Red Blood Cells % 0 %; Platelet Count 177 10^3/cmm (130-400); Red Blood Count 3.83 10^6/uL (4.1-5.3); Red Cell Distribution Width 14.1 % (12.1-15.1); White Blood Count 3.7 10^3/uL (4.0-10.0)
[2020-10-24 14:42] LABS: Troponin T (5th) Once 13 ng/L (0-10)
[2020-10-24 14:50] LABS: Alanine Aminotransferase 37 U/L (0-33); Albumin Level 3.4 g/dL (3.5-5.2); Alkaline Phosphatase 70 IU/L (35-105); Anion Gap 16.2 (5-19); Aspartate Amino Transferase 74 U/L (0-32); Blood Urea Nitrogen 16 mg/dL (8-23); Calcium 7.8 mg/dL (8.5-10.5); Carbon Dioxide 25 mmol/L (22-29); Chloride 99 mmol/L (98-107); Digoxin 0.3 ng/mL (0.6-1.2); Globulin 2.8 g/dL (1.3-4.6); Glucose 100 mg/dL (65-115); NT Pro B Type Natriuretic Pept 209 pg/mL (0-450); Osmolality Calculated 285 mOsm/kg (285-295); Potassium 3.2 mmol/L (3.5-5.1); Sodium 137 mmol/L (136-145); Total Bilirubin 0.3 mg/dL (0.15-1.2); Total Protein 6.2 g/dL (6.6-8.7)
[2020-10-24 16:58] LABS: SARS Covid-2 Antigen Positive (Negative)
--- NOTE | 2020-10-24 17:52 | PC.NURSE ---
[employer] contacted and medicaid ride set up. pt remains in ER room until ride arrives
--- NOTE | 2020-10-27 13:53 | DCPLANNER ---
carbon sequestration plant manager had message to fax an order for the monoclonal antibody infusion to centralized scheduling. carbon sequestration plant manager faxed order to centralized scheduling, confirmed with Cheyanne that centralized scheduling did receive the order.
== END 2020-10-24 22:35 | disposition home or self-care (01) ==
PROVIDERS: Emergency Provider Nurse Practitioner Family; PCP Nurse Practitioner Family
DX: U07.1 COVID-19 (principal); H91.93 Unspecified hearing loss, bilateral; J45.909 Unspecified asthma, uncomplicated; E11.9 Type 2 diabetes mellitus without complications; I10 Essential (primary) hypertension; Z79.84 Long term (current) use of oral hypoglycemic drugs
CPT/HCPCS: 36600; 70450; 71045; 80053; 80162; 82803; 83880; 84484; 85025; 87426; 93005; 99284

== ENCOUNTER 2020-10-28 10:14 | Inpatient (IN) | payer MEDICARE, MEDICAID, SELFPAY ==
[2020-10-28] VITALS (8 sets, daily range): BP systolic 131–179; BP diastolic 81–129; PULSE 81–99; RESP 16–22; TEMP 36.7; O2SAT 91–97
--- NOTE | 2020-10-28 12:46 | PC.PHAR ---
PT UNABLE TO VERIFY MEDICATIONS DUE TO AMS-[facility] STATES THEY HAVE DIGOXIN 125MCG AND PIOGLITAZONE 15MG TO BE ON HOLD SINCE 08/11/19-[facility]TH[facility] STATES THEY HAVE DILTIAZEM ER 90MG BID LAST FILLED ON 02/14/2020 90D/S ,GLIPIZIDE-METFORMIN LAST FILLED ON 03/14/2020 90D/S ACTIVE MEDICATIONS-NOTES ARE MADE IN THE PHARMACY COMMENTS-MEDICATIONS ENTERED ARE FROM WHAT EXT MED HISTORY SHOWS,[facility] LIST AND PREVIOUS ENTERED MED LIST
--- NOTE | 2020-10-28 12:46 | ED_ITS ---
HPI - COVID General: Chief Complaint: COVID symptoms Stated Complaint: MILD AMS, LOW O2 Time Seen by Provider: 10/28/20 12:02 History of Present Illness: HPI Narrative: Patient is a 75-year-old female with history of asthma, hypertension, recent positive Covid PCR who presents to the emergency room by EMS after patient failed to reach until phone call by her primary care provider. On arrival, history is limited. Patient is in no acute respiratory distress satting well. I have attempted to reach out to patient's family member including her [id number] who tells me that patient has become increasingly more confused over the last 2 weeks. 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 COVID Results: SARS-CoV-2 Antigen (Rapid) Positive (Negative) H 10/24/20 14:00 10/24/20 Nasal/Oral Coronavirus 2019 PCR Pending 10/28/20 14:05 10/28/20 Review of Systems Narrative: Constitutional: no subjective fever, no generalized weakness HEENT: No vision changes CV: No chest pain, no palpitations PULM: No cough, no dyspnea. GI: No abdominal pain, no N/V/D. : No dysuria MSKEL: No muscle pain SKIN: No new rashes, no lesions. [facility] ED PFSH: Medical History Asthma Diabetes mellitus type 2, noninsulin dependent Encounter for monitoring digoxin therapy GERD (gastroesophageal reflux disease) Gout Hard of hearing Hypertension Obstructive sleep apnea Wears CPAP PVCs (premature ventricular contractions) Surgical History History of bladder surgery History of cataract surgery History of cholecystectomy History of hysterectomy History of partial thyroidectomy Family History Other CAD (coronary artery disease) Hypertension Social History Smoking and tobacco status: never smoked Second hand smoke exposure: Yes Smoking risk assessment/counseling performed?: Yes Alcohol intake: never Desire information about alcohol rehabilitation?: No Counseling given: No Adopted: No Caregiver/support person: Yes Lives independently: Yes Household members: none Housing: Other Details: Senior Housing Marital status: Single Current occupational status: disabled Pets and animals: No History of recent travel: No Current gender identity: Female Physical Exam Narrative: EXAM NARRATIVE: Head: Atraumatic Eyes: PERRL, conjunctiva without injection ENT: Mucous membrane moist NECK: Supple without lymphadenopathy LUNGS: Coarse lung sounds, no crackles/wheezes/rhonchi on exam CV: RRR ABDOMEN: Soft, nontender EXTREMITY: Normal ROM SKIN: No rash or erythema NEURO: Awake and alert. No focal motor deficits. PSYCH: Normal mood and affect. Course Vital Signs: Vital signs: Vital Signs Temperature 98.0 F 10/28/20 10:43 Pulse Rate 94 10/28/20 15:48 Respiratory Rate 16 10/28/20 15:48 Blood Pressure 131/103 10/28/20 15:48 Pulse Oximetry 97 10/28/20 15:48 MDM - COVID MDM Narrative: Medical decision making narrative: [75]yo patient presenting to the ED with shortness of breath, cough, and malaise concerning for pneumonia with findings of fever, decreased/junky breath sounds, and tachypnea. Workup today includes XR chest Defer lab work at this time given that the patient is well appearing with stable vital signs and without recent hospitalization or care facility stay. Given History, Exam, and Workup presentation most consistent with pneumonia.Presentation not consistent with PE, COPD exacerbation, Pneumothorax, TB, Atypical ACS, Esophageal Rupture, Toxic Exposure, Foreign Body Airway Obstruction. XR Chest: no signs of focal consolidation [time] On reassessment, XR without any focal consolidations. Findings consistent with viral pneumonia. Will observe in the emergency room, patient continued to sat above 95% without any increased work of breathing. Age over 65, hx of chronic lung diseases with negative XR - candidate for BAM. However given recent onset of confusion, decision was made to admit patient for BAM infusion as well as work-up for altered mental status. CT brain negative for acute findings. Mild K and Na abnormality. UA pending at this time. Disposition: Admission Lab Data: Labs: Lab Results 10/28/20 10/28/20 10/28/20 Range/Units 14:13 14:29 14:29 WBC 3.8 L (4.0-10.0) 10^3/ uL RBC 3.91 L (4.1-5.3) 10^6/u L Hgb 10.7 L (11.5-15.3) g/dL Hct 35.5 L (37.0-47.0) % MCV 90.8 (81-99) fL MCH 27.4 L (28.0-34.0) pg MCHC 30.1 (30.0-36.0) g/dL RDW 14.0 (12.1-15.1) % Plt Count 232 (130-400) 10^3/c mm MPV 9.3 (7.4-10.4) fL Neut % (Auto) 63.5 % Lymph % (Auto) 27.9 % Lewis % (Auto) 7.0 % Eos % (Auto) 0.5 % Baso % (Auto) 0.3 % Neut # (Auto) 2.43 (1.8-7.7) 10^3/u L Lymph # (Auto) 1.1 (0.8-4.8) 10^3/u L Lewis # (Auto) 0.3 (0.2-0.9) 10^3/u L Eos # (Auto) 0.0 (0.0-0.8) 10^3/u L Baso # (Auto) 0.0 (0.0-0.1) 10^3/u L Nucleated RBC % (a uto) 0 % Nucleated RBCs # 0.0 /100WBC PT 14.00 (12.1-14.9) SECO NDS INR 1.05 (0.8-1.2) APTT 32.7 (23.9-36.7) SECO NDS Fibrinogen 461 (174-498) mg/dL D-Dimer 1.05 H (0-0.59) ug/mIFE U Specimen Type Arterial Sample Site Brachial, right ABG pH 7.43 (7.35-7.45) ABG pCO2 45.0 (35-45) mmHg ABG pO2 139.0 H (80.0-100.0) mmH g ABG HCO3 29.6 H (22-26) mmol/L ABG Base Excess 4.6 H (-2.0-2.0) mmol/ L Narendra Test Pos Hematocrit 35.2 L (37-47) % O2 Delivery Device Nc O2 Liters/Min 2.0 % Credit Compliance Officer ID [email or web address] Sodium (136-145) mmol/L Potassium (3.5-5.1) mmol/L Chloride (98-107) mmol/L Carbon Dioxide (22-29) mmol/L Anion Gap (5-19) BUN (8-23) mg/dL Creatinine (0.5-0.9) mg/dL GFR Calculation Glucose (65-115) mg/dL Calculated Osmolal ity (285-295) mOsm/k g Lactic Acid (0.5-2.2) mmol/L Calcium (8.5-10.5) mg/dL Ferritin (15-150) ng/mL Total Bilirubin (0.15-1.2) mg/dL AST (0-32) U/L ALT (0-33) U/L Alkaline Phosphata se (35-105) IU/L Troponin T Gen 5 n g/L (0-10) ng/L C-Reactive Protein (0.0-4.9) mg/L NT-Pro-B Natriuret Pep (0-450) pg/mL Total Protein (6.6-8.7) g/dL Albumin (3.5-5.2) g/dL Globulin (1.3-4.6) g/dL 10/28/20 10/28/20 10/28/20 Range/Units 14:29 14:29 14:29 WBC (4.0-10.0) 10^3/ uL RBC (4.1-5.3) 10^6/u L Hgb (11.5-15.3) g/dL Hct (37.0-47.0) % MCV (81-99) fL MCH (28.0-34.0) pg MCHC (30.0-36.0) g/dL RDW (12.1-15.1) % Plt Count (130-400) 10^3/c mm MPV (7.4-10.4) fL Neut % (Auto) % Lymph % (Auto) % Lewis % (Auto) % Eos % (Auto) % Baso % (Auto) % Neut # (Auto) (1.8-7.7) 10^3/u L Lymph # (Auto) (0.8-4.8) 10^3/u L Lewis # (Auto) (0.2-0.9) 10^3/u L Eos # (Auto) (0.0-0.8) 10^3/u L Baso # (Auto) (0.0-0.1) 10^3/u L Nucleated RBC % (a uto) % Nucleated RBCs # /100WBC PT (12.1-14.9) SECO NDS INR (0.8-1.2) APTT (23.9-36.7) SECO NDS Fibrinogen (174-498) mg/dL D-Dimer (0-0.59) ug/mIFE U Specimen Type Sample Site ABG pH (7.35-7.45) ABG pCO2 (35-45) mmHg ABG pO2 (80.0-100.0) mmH g ABG HCO3 (22-26) mmol/L ABG Base Excess (-2.0-2.0) mmol/ L Narendra Test Hematocrit (37-47) % O2 Delivery Device O2 Liters/Min % Credit Compliance Officer ID Sodium 135 L (136-145) mmol/L Potassium 3.4 L (3.5-5.1) mmol/L Chloride 97 L (98-107) mmol/L Carbon Dioxide 27 (22-29) mmol/L Anion Gap 14.4 (5-19) BUN 9 (8-23) mg/dL Creatinine 0.4 L (0.5-0.9) mg/dL GFR Calculation Not Reportable Glucose 106 (65-115) mg/dL Calculated Osmolal ity 279 L (285-295) mOsm/k g Lactic Acid 0.7 (0.5-2.2) mmol/L Calcium 7.5 L (8.5-10.5) mg/dL Ferritin 165 H (15-150) ng/mL Total Bilirubin 0.5 (0.15-1.2) mg/dL AST 55 H (0-32) U/L ALT 38 H (0-33) U/L Alkaline Phosphata se 72 (35-105) IU/L Troponin T Gen 5 n g/L 14 H (0-10) ng/L C-Reactive Protein 21.1 H (0.0-4.9) mg/L NT-Pro-B Natriuret Pep 447 (0-450) pg/mL Total Protein 5.9 L (6.6-8.7) g/dL Albumin 3.3 L (3.5-5.2) g/dL Globulin 2.6 (1.3-4.6) g/dL Imaging Data: CXR: My impression: [facility] [id number] [facility] [place] [address]LZxl ReportSigned Patient: Marissa Hyde #: [id number]: [id number]#:[id number]/Sex: 75 / FADM Date: 10/28/20Loc: ERRoom/Bed:Attending Dr: Ordering Provider/Ordering MD: Cyrus Baig MD Date of Service: 10/28/20 Procedure(s): XR chest 1V portable [id number] Accession Number(s): [id number] Report Number: [id number] WS: [id number] Portable AP upright chest, 10/28/2020 Clinical Data: hypxoia, shortness of breath Comparison: Portable chest, 10/24/2020. Findings: No nodules, masses or effusions are seen. The heart is normal. The pulmonary vascularity is not increased. No pneumonia or pneumothorax is seen. The aortic arch and descending aorta show tortuosity. There is an orthopedic anchor in the right humeral head. XR/XR chest 1V portable [id number] Impression: Atherosclerosis. Dictated By:Melyssa Garica MDSigned By:Melyssa Garcia MDSigned Date/Time:10/28/20 1337DD/ 1335 CT Head: Radiologist's impression: Chart Viewer Diagnostics DATE TYPE STATUS REF RANGE/AUTHOR Avni Today 17:42 Isreal Onofre Today 13:00 Melyssa Garcia 10/24/20 14:16 Gianfranco Santos Jr 10/24/20 12:42 Gianfranco Santos Jr 10/06/20 15:09 Isreal Onofre 04/21/20 11:55 Eliceo Arce 08/08/19 15:51 Lucy Babb 08/08/19 15:51 Lucy Babb 08/08/19 11:16 Lucy Babb 08/08/19 11:00 Lucy Babb 08/08/19 11:00 Lucy Babb 08/08/19 11:00 Lucy Babb 75, F0 1945 [facility], Emergency Department ED 06 -Station 1 1.6m COVID symptoms Search Chart Unknown Unknown Unknown Unknown Unknown Unknown Unknown Unknown ONSET 1ST CURRENT Today Today 10:43 15:48 *from earlier documentation No Data to Display Today 14:29 Today 14:29 Today 14:29 Today 14:29 Today 14:29 Today 14:29 Today 14:29 Today 14:29 Today 14:29 Today 14:29 Today 14:29 Today 14:29 Today 14:29 Today 14:29 Today 14:29 Today 14:29 Today 14:29 Today 14:29 Today 14:29 Today 14:29 Today 14:29 Today 14:29 Today 14:29 Today 14:29 Today 14:29 Today 14:29 Today 14:29 Today 14:13 Today 14:13 Today 14:13 Today 14:13 Today 14:13 Today 14:13 Today 14:13 Today 14:13 Today 14:13 Today 14:13 Today 14:13 Today 14:13 Today 14:29 Today 14:29 Today 14:29 Today 14:29 Today 14:29 Today 14:29 Today 14:29 Today 14:29 Today 14:29 Today 14:29 Today 14:29 Today 14:29 Today 14:29 Today 14:29 Today 14:29 Today 14:29 Today 14:29 Today 14:29 Today 14:29 Today 14:29 Today 14:29 Today 14:29 Today 14:29 Today 14:05 Marissa Hyde J 75 F 1945 [address] [id number] Scan ReportSigned Patient: Marissa Hyde JUnit #: [id number]: [id number]#:[id number]/Sex: 75 / FADM Date: 10/28/20Loc: ERRoom/Bed:Attending Dr: Ordering Provider/Ordering MD: Cyrus Baig MD Date of Service: 10/28/20 Procedure(s): CT head wo con* [id number] Accession Number(s): [id number] Report Number: [id number] PROCEDURE INFORMATION: Exam: CT Head Without Contrast Exam date and time: 10/28/2020 5:42 PM Age: 75 years old Clinical indication: Altered mental status/memory loss; Prior surgery; Patient HX: Covid+; Additional info: AMS TECHNIQUE: Imaging protocol: Computed tomography of the head without contrast. Radiation optimization: All CT scans at this facility use at least one of these dose optimization techniques: automated exposure control; mA and/or kV adjustment per patient size (includes targeted exams where dose is matched to clinical indication); or iterative reconstruction. COMPARISON: CT head wo con* [id number] 10/24/2020 1:15 PM RADIATION DOSE METRICS: Total DLP (mGy-cm): 821.54 FINDINGS: Brain: Moderate diffuse cerebral atrophy. Low attenuation signal within the periventricular white matter suggestive of chronic small vessel ischemic disease. Negative for intracranial hemorrhage. No cerebral edema. No mass effect or midline shift. Cerebral ventricles: No ventriculomegaly. Paranasal sinuses: Visualized sinuses are unremarkable. No fluid levels. Mastoid air cells: Visualized mastoid air cells are well aerated. Bones/joints: Unremarkable. No acute fracture. Soft tissues: Unremarkable. CT/CT head wo con* [id number] IMPRESSION: No acute intracranial abnormality. Radiation Dose CTDIVOL = (mGy): DLP = 821.54 (mGy-cm) Dictated By:Isreal Onofre DOSigned By:Isreal Onofre DOSigned Date/Time:10/28/200DD/ 1838 COVID Results: SARS-CoV-2 Antigen (Rapid) Positive (Negative) H 10/24/20 14:00 10/24/20 Nasal/Oral Coronavirus 2019 PCR Pending 10/28/20 14:05 10/28/20 Monoclonal Antibody - ED Inclusion/Exclusion Criteria age >/= 12 years age >/= 65 no increase oxygen requirement (if chronically on oxygen) Patient education patient/family/caregiver received/reviewed fact sheet Plan for treatment Meets criteria for Monoclonal Antibody infusion Discharge Plan Discharge Prescriptions: No Action magnesium 200 mg tablet 200 mg PO DAILY RF: 0 digoxin [Digox] 125 mcg (0.125 mg) tablet 125 mcg PO DAILY MDD SEE PHARMACY COMMENT-ON HOLD RF: 0 Hold Instructions: Resume on 08/27/19. Discuss with PCP before resuming oxymetazoline [Vicks Sinex 12-Hour] 0.05 % spray,non-aerosol 2 spray intranasal Q12H PRN (Reason: Nasal Congestion) RF: 0 levalbuterol tartrate [Xopenex HFA] 45 mcg/actuation HFA aerosol inhaler 2 inh inhalation Q6H Qty: 15 RF: 3 budesonide-formoterol [Symbicort] 80-4.5 mcg/actuation HFA aerosol inhaler 2 puff inhalation BID Qty: 10.2 RF: 3 omeprazole 20 mg capsule,delayed release(DR/EC) 20 mg PO BID Qty: 180 RF: 0 potassium chloride 10 mEq tablet,ER particles/crystals 10 meq PO DAILY Qty: 90 RF: 0 pioglitazone 15 mg Tablet 15 mg PO DAILY RF: 0 Hold Instructions: Resume on 08/27/19. Discuss with PCP before resuming citalopram 20 mg tablet 20 mg PO DAILY RF: 0 diltiazem HCl 90 mg capsule,extended release 12 hr 90 mg PO BID RF: 0 gabapentin 100 mg capsule 100 mg PO TID RF: 0 lisinopril 2.5 mg tablet 2.5 mg PO DAILY RF: 0 glipizide-metformin 5-500 mg tablet 2 tab PO BID RF: 0 bumetanide 2 mg tablet 2 mg PO DAILY RF: 0 cetirizine 10 mg capsule 10 mg PO DAILY RF: 0 Coding Level of Care Code ED Receptionist Clerk for [employer] Chrissie
--- NOTE | 2020-10-28 13:00 | ECG_ITS ---
[facility] Test Date: 2020-10-28 Pat Name: Marissa Hyde Department: Room: Gender: Female Creative Consultant: : 1945 Requested By: Cyrus Baig Order Number: [id number] Reading MD: ARI DINH Measurements Intervals Sharon Rate: 94 P: 263 DC: 108 QRS: 68 QRSD: 97 T: 57 QT: 357 QTc: 446 Interpretive Statements JUNCTIONAL RHYTHM WITH FREQUENT SUPRAVENTRICULAR PREMATURE COMPLEXES ABNORMAL RHYTHM ECG Compared to ECG 10/24/2020 13:41:38 Incomplete right bundle-branch block no longer present Electronically Signed On 10-28-2020 22:32:12 CDT by ARI DINH [email or web address]
--- NOTE | 2020-10-28 13:00 | XR_ITS ---
WS: [id number] Portable AP upright chest, 10/28/2020 Clinical Data: hypxoia, shortness of breath Comparison: Portable chest, 10/24/2020. Findings: No nodules, masses or effusions are seen. The heart is normal. The pulmonary vascularity is not increased. No pneumonia or pneumothorax is seen. The aortic arch and descending aorta show tortu osity. There is an orthopedic anchor in the right humeral head. XR/XR chest 1V portable [id number] Impression: Atherosclerosis.
[2020-10-28 14:32] LABS: ABG PH Result 7.43 (7.35-7.45); Arterial Blood Gas Hematocrit 35.2 % (37-47); Base Excess ABG 4.6 mmol/L (-2.0-2.0); Blood Gas Allen Test Pos; Blood Gas Sample Type Arterial; HCO3 ABG 29.6 mmol/L (22-26)
[2020-10-28 14:33] LABS: Blood Gas Sample Site Brachial, right; Oxygen Device NC
[2020-10-28 14:50] LABS: Basophils % 0.3 %; Eosinophils % 0.5 %; Hematocrit 35.5 % (37.0-47.0); Hemoglobin 10.7 g/dL (11.5-15.3); Lymphocytes # 1.1 10^3/uL (0.8-4.8); Lymphocytes % 27.9 %; Mean Corpuscular HGB Conc 30.1 g/dL (30.0-36.0); Mean Corpuscular Hemoglobin 27.4 pg (28.0-34.0); Mean Corpuscular Volume 90.8 fL (81-99); Mean Platelet Volume 9.3 fL (7.4-10.4); Monocytes # 0.3 10^3/uL (0.2-0.9); Neutrophils # 2.43 10^3/uL (1.8-7.7); Neutrophils % 63.5 %; Nucleated Red Blood Cells % 0 %; Platelet Count 232 10^3/cmm (130-400); Red Blood Count 3.91 10^6/uL (4.1-5.3); White Blood Count 3.8 10^3/uL (4.0-10.0)
[2020-10-28 15:04] LABS: Lactic Sepsis W/Reflex 0.7 mmol/L (0.5-2.2)
[2020-10-28 15:08] LABS: INR 1.05 (0.8-1.2)
[2020-10-28 15:10] LABS: Partial Thromboplastin Time 32.7 SECONDS (23.9-36.7)
[2020-10-28 15:13] LABS: Fibrinogen 461 mg/dL (174-498)
[2020-10-28 15:14] LABS: Alanine Aminotransferase 38 U/L (0-33); Albumin Level 3.3 g/dL (3.5-5.2); Alkaline Phosphatase 72 IU/L (35-105); Anion Gap 14.4 (5-19); Aspartate Amino Transferase 55 U/L (0-32); Blood Urea Nitrogen 9 mg/dL (8-23); C Reactive Protein 21.1 mg/L (0.0-4.9); Calcium 7.5 mg/dL (8.5-10.5); Carbon Dioxide 27 mmol/L (22-29); Chloride 97 mmol/L (98-107); Globulin 2.6 g/dL (1.3-4.6); Glucose 106 mg/dL (65-115); NT Pro B Type Natriuretic Pept 447 pg/mL (0-450); Osmolality Calculated 279 mOsm/kg (285-295); Potassium 3.4 mmol/L (3.5-5.1); Sodium 135 mmol/L (136-145); Total Bilirubin 0.5 mg/dL (0.15-1.2); Total Protein 5.9 g/dL (6.6-8.7)
[2020-10-28 15:19] LABS: Troponin T (5th) Once 14 ng/L (0-10)
[2020-10-28 15:33] LABS: Ferritin 165 ng/mL (15-150)
[2020-10-28 15:50] LABS: D Dimer 1.05 ug/mIFEU (0-0.59)
--- NOTE | 2020-10-28 17:42 | CTR_ITS ---
PROCEDURE INFORMATION: Exam: CT Head Without Contrast Exam date and time: 10/28/2020 5:42 PM Age: 75 years old Clinical indication: Altered mental status/memory loss; Prior surgery; Patient HX: Covid+; Additional info: AMS TECHNIQUE: Imaging protocol: Computed tomography of the head without contrast. Radiation optimization: All CT scans at this facility use at least one of these dose optimization techniques: automated exposure control; mA and/or kV adjustment per patient size (includes targeted exams where dose is matched to clinical indication); or iterative reconstruction. COMPARISON: CT head wo con* [id number] 10/24/2020 1:15 PM RADIATION DOSE METRICS: Total DLP (mGy-cm): 821.54 FINDINGS: Brain: Moderate diffuse cerebral atrophy. Low attenuation signal within the periventricular white matter suggestive of chronic small vessel ischemic disease. Negative for intracranial hemorrhage. No cerebral edema. No mass effect or midline shift. Cerebral ventricles: No ventriculomegaly. Paranasal sinuses: Visualized sinuses are unremarkable. No fluid levels. Mastoid air cells: Visualized mastoid air cells are well aerated. Bones/joints: Unremarkable. No acute fracture. Soft tissues: Unremarkable. CT/CT head wo con* [id number] IMPRESSION: No acute intracranial abnormality. Radiation Dose CTDIVOL = (mGy): DLP = 821.54 (mGy-cm)
--- NOTE | 2020-10-28 19:31 | PM.HP ---
Providers/Chief Complaint Primary Care Provider: HO Silva Chief Complaint: MILD AMS, LOW O2 History of Present Illness Marissa Hyde is a 75 year old female who has history of CELSO, diabetes, asthma, PVCs, atrial fibrillation on chronic anticoagulation on lower dose of Eliquis, was admitted in July 2019 for altered mental status which was thought secondary to hypoglycemia, glipizide were discontinued at that time,presented with chief complaint of altered mental status. She lives in senior housing. Was evaluated by product manager e commerce for her wheezing. Patient presented today for altered mental status and confusion. Patient is not a good historian, she kept saying she wants to go home was not able to give me much information however endorsing that she has been having cough, lethargy and fatigue. She was diagnosed with COVID-19 and was scheduled for bam infusion tomorrow, her PCP called her today and was not able to get in touch with her, eventually EMS was called who brought her to the hospital. [facility] was contacted who endorsed that patient has been gradually getting more confused in last 2 weeks she has home health services & has not seen a nurse in last few days Diagnostic work-up in the ER did not show any remarkable findings, she was saturating well on room air, hypokalemia, abnormal transaminases normal procalcitonin and TSH digoxin level low Head CT unremarkable chest x-ray no acute finding Review of Systems General: Reports: ROS unobtainable due to medical condition (Hypoactive delirium) Medications/Allergies Home Medications Medication Instructions Recorded Confirmed Last Taken Type digoxin 125 mcg (0.125 mg) tablet 125 mcg PO DAILY MDD SEE PHARMACY 04/17/19 10/28/20 Unknown History COMMENT-ON HOLD magnesium 200 mg tablet 200 mg PO DAILY 04/17/19 10/28/20 Unknown History pioglitazone 15 mg PO DAILY 08/08/19 10/28/20 Unknown History budesonide-formoterol HFA 80 2 puff INHALATION BID #10.2 g 04/21/20 10/28/20 Unknown Rx mcg-4.5 mcg/actuation aerosol inhaler levalbuterol tartrate 45 2 inh INHALATION Q6H #15 g 04/21/20 10/28/20 Unknown Rx mcg/actuation aerosol inhaler oxymetazoline 0.05 % nasal spray 2 spray INTRANASAL Q12H PRN 04/21/20 10/28/20 Unknown History omeprazole 20 mg capsule,delayed 20 mg PO BID #180 cap 08/04/20 10/28/20 Unknown Rx release potassium chloride 10 mEq 10 meq PO DAILY #90 tab 08/04/20 10/28/20 Unknown Rx tablet,extended release(part/cryst) citalopram 20 mg PO DAILY 10/24/20 10/28/20 Unknown History diltiazem HCl 90 mg PO BID 10/24/20 10/28/20 Unknown History gabapentin 100 mg PO TID 10/24/20 10/28/20 Unknown History glipizide-metformin 2 tab PO BID 10/24/20 10/28/20 Unknown History lisinopril 2.5 mg PO DAILY 10/24/20 10/28/20 Unknown History bumetanide 2 mg PO DAILY 10/28/20 10/28/20 Unknown History cetirizine 10 mg PO DAILY 10/28/20 10/28/20 Unknown History Allergies Allergy/AdvReac Type Severity Reaction Status Date / Time adhesive tape Allergy Unknown Verified 09/12/20 10:26 levofloxacin [From Levaquin] Allergy Unknown Verified 09/12/20 10:26 morphine Allergy Unknown Verified 09/12/20 10:26 nitrofurantoin Allergy Unknown Verified 09/12/20 10:26 [From Macrobid] oxytetracycline Allergy Unknown Verified 09/12/20 10:26 [From Terramycin with Polymyxin B] Penicillins Allergy Unknown Verified 09/12/20 10:26 polymyxin B Allergy Unknown Verified 09/12/20 10:26 [From Terramycin with Polymyxin B] Sulfa (Sulfonamide Allergy Unknown Verified 09/12/20 10:26 Antibiotics) PFSH Acute PFSH: Medical History Asthma Diabetes mellitus type 2, noninsulin dependent Encounter for monitoring digoxin therapy GERD (gastroesophageal reflux disease) Gout Hard of hearing Hypertension Obstructive sleep apnea Wears CPAP PVCs (premature ventricular contractions) Surgical History History of bladder surgery History of cataract surgery History of cholecystectomy History of hysterectomy History of partial thyroidectomy Family History Other CAD (coronary artery disease) Hypertension Social History Smoking and tobacco status: never smoked Second hand smoke exposure: Yes Smoking risk assessment/counseling performed?: Yes Alcohol intake: never Desire information about alcohol rehabilitation?: No Counseling given: No Adopted: No Caregiver/support person: Yes Lives independently: Yes Household members: none Housing: Other Details: Senior Housing Marital status: Single Current occupational status: disabled Pets and animals: No History of recent travel: No Current gender identity: Female Vitals/I&O/Wt Last Vital Signs Temp 98.0 F 10/28/20 10:43 Pulse 95 10/28/20 19:29 Resp 18 10/28/20 19:29 BP 178/93 10/28/20 19:29 Pulse Ox 95 10/28/20 19:29 10/28/20 10/28/20 10/28/20 06:59 14:59 22:59 Intake Total 60 / 60 Balance 60 / 60 Physical Exam Narrative: EXAM NARRATIVE: Patient was seen and examined in the ER Morbidly obese female appears stated age No active distress She was saturating well on room air Was stating that she wants to go home One-to-one supervision Chest congestion with wheezing on expiration bilaterally at the bases S1, S2 Nonpitting edema of lower extremities Abdomen distended with obesity nontender Patient is very hard of hearing No active strokelike symptoms EOMI, PERRLA Mood seems to be anxious Data : 10/28/20 14:29 10/28/20 14:29 Micro: Microbiology 10/28/20 17:25 Blood Culture - Preliminary Blood SPECIMEN COLLECTED 10/28/20 14:29 Blood Culture - Preliminary Blood SPECIMEN COLLECTED A&P Assessment and plan (1) Asthma: Status: Acute Qualifiers: Asthma complication type: uncomplicated Asthma persistence: persistent Asthma severity: moderate Qualified Code(s): J45.40 - Moderate persistent asthma, uncomplicated (2) COVID-19: Status: Acute (3) Hard of hearing: Status: Acute Qualifiers: Hearing loss type: unspecified Laterality: bilateral Qualified Code(s): H91.93 - Unspecified hearing loss, bilateral (4) Obstructive sleep apnea: Status: Acute (5) Acute hypoactive delirium due to another medical condition: Status: Acute Additional A&P Information Hypoactive delirium This seems related to COVID-19 pneumonia Currently saturating well on room air No active strokelike symptoms UA is pending No leukocytosis lactic acid 0.7 Procalcitonin unremarkable Requested B12, TSH, digoxin level Monitor overnight for any worsening of symptoms COVID-19 Not requiring oxygen Inflammatory markers 21 CRP Procalcitonin unremarkable I would avoid Decadron which can cause psychosis and worsening of her delirium Not a candidate of remdesivir as she is not requiring oxygen Home O2 evaluation before discharge She was scheduled for bam infusion tomorrow Would use Ventolin and use low-dose steroids for her active wheezing Obstructive sleep apnea: Would use auto CPAP overnight Current ABG shows compensated pH That was done on 2 L currently saturating well on room air Hypokalemia related to use of Bumex Clinically looks euvolemic Reduce the dose of Bumex to 1 mg daily, potassium repleted Full code Consistent carb diet DVT prophylaxis Lovenox Attestations Medical Necessity Statement*: Anticipating discharge within 48 hours Time Spent in Patient Care: 16 - 35 minutes Coding Level of Care Code Acute Outside Sales Manager for [facility] Chrissie Diagnoses Asthma J45.40 Asthma complication type: uncomplicated Asthma persistence: persistent Asthma severity: moderate COVID-19 U07.1 Hard of hearing H91.93 Hearing loss type: unspecified Laterality: bilateral Obstructive sleep apnea G47.33 Acute hypoactive delirium due to another medical condition F05
[2020-10-28 20:16] LABS: Procalcitonin 0.03 ng/mL (0-0.5); Thyroid Stimulating Hormone 0.69 uIU/mL (0.27-4.20)
[2020-10-28 20:39] LABS: Digoxin 0.3 ng/mL (0.6-1.2)
[2020-10-29] VITALS (16 sets, daily range): BP systolic 134–186; BP diastolic 79–113; PULSE 68–106; RESP 16–28; TEMP 36.6–36.9; O2SAT 93–100; BMI 34.3
[2020-10-29] MEDS: LORazepam 2 mg/mL INJ 1 mL 1 MG IVP (03:13)
[2020-10-29] MEDS: enoxaparin 40 mg/0.4 mL Syringe SUBCUT (03:14)
[2020-10-29 05:13] LABS: Basophils % 0.2 %; Eosinophils # 0.1 10^3/uL (0.0-0.8); Eosinophils % 1.1 %; Hematocrit 36.2 % (37.0-47.0); Hemoglobin 11.2 g/dL (11.5-15.3); Lymphocytes # 0.9 10^3/uL (0.8-4.8); Lymphocytes % 19.4 %; Mean Corpuscular HGB Conc 30.9 g/dL (30.0-36.0); Mean Corpuscular Hemoglobin 27.8 pg (28.0-34.0); Mean Corpuscular Volume 89.8 fL (81-99); Mean Platelet Volume 9.1 fL (7.4-10.4); Monocytes # 0.3 10^3/uL (0.2-0.9); Neutrophils # 3.18 10^3/uL (1.8-7.7); Neutrophils % 71.6 %; Nucleated Red Blood Cells % 0 %; Platelet Count 236 10^3/cmm (130-400); Red Blood Count 4.03 10^6/uL (4.1-5.3); Red Cell Distribution Width 13.9 % (12.1-15.1); White Blood Count 4.4 10^3/uL (4.0-10.0)
[2020-10-29 05:30] LABS: Anion Gap 14.9 (5-19); Blood Urea Nitrogen 9 mg/dL (8-23); Carbon Dioxide 28 mmol/L (22-29); Chloride 99 mmol/L (98-107); Glucose 120 mg/dL (65-115); Osmolality Calculated 286 mOsm/kg (285-295); Potassium 3.9 mmol/L (3.5-5.1); Sodium 138 mmol/L (136-145)
[2020-10-29 05:31] LABS: C Reactive Protein 24.8 mg/L (0.0-4.9)
[2020-10-29 07:00] LABS: Glucose Point of Care 134 mg/dL (70-110)
--- NOTE | 2020-10-29 07:40 | PC.NURSE ---
PATIENT WAS WITHOUT OXYGEN. PATIENT FELL ASLEEP IN BED AND O2 SATURATION DROPPED TO CONSISTENT 85& TO 87%. 2 L O2 NC APPLIED.
[2020-10-29] MEDS: digoxin 125 mcg Tablet PO ×2 (08:52→10:47)
[2020-10-29] MEDS: bumetanide 1 mg Tablet PO ×2 (08:52→10:51)
[2020-10-29] MEDS: magnesium oxide 400 mg tablet 200 MG PO ×2 (08:52→10:49)
[2020-10-29] MEDS: lisinopril 2.5 mg Tablet PO ×2 (08:55→10:51)
[2020-10-29 10:42] LABS: Add Urine Microscopic? YES; Bilirubin Urine 1+ (Negative); Blood Urine Neg (Negative); Glucose Urine UA Norm (Normal); Ketones Urine 1+ (Negative); Leukocyte Esterase Urine 1+ (Negative); Nitrate Urine Negative (Negative); Protein Urine 1+ (Negative); Urine Appearance Clear (CLEAR); Urine Color Yellow (Yellow); Urobilinogen Urine 1 mg/dL (Negative); pH Urine 5 (5-7)
[2020-10-29 10:45] LABS: Add Urine Culture? No; Bacteria Urine 1+ /hpf
[2020-10-29] MEDS: ascorbic acid 500 mg Tablet 1000 MG PO ×2 (10:45→17:14)
[2020-10-29] MEDS: potassium chloride ER 10 mEq Tablet PO (10:52)
[2020-10-29] MEDS: citalopram 20 mg Tablet PO (10:52)
[2020-10-29] MEDS: predniSONE 20 mg Tablet 40 MG PO (10:52)
[2020-10-29] MEDS: zinc gluconate 50 mg Tablet PO (11:06)
--- NOTE | 2020-10-29 12:54 | P.PN_ITS ---
Subjective Subjective: Interval history: Patient was examined this morning, she is currently in the emergency room, waiting a bed on the second floor, she is very hard of hearing, she tells me that she just not feeling well, she has a cough, denies shortness of breath, is requiring oxygen, she tested positive for Covid on 10/24/2020, he was scheduled for bam infusion Vitals/I&O/Wt Last Vital Signs Temp 98.0 F 10/28/20 10:43 Pulse 68 10/29/20 11:15 Resp 20 H 10/29/20 11:15 BP 151/83 10/29/20 09:34 Pulse Ox 98 10/29/20 11:15 10/28/20 10/29/20 10/29/20 22:59 06:59 14:59 Intake Total 60 / 60 Balance 60 / 60 Weight last 48 hrs Weight 87.997 kg Physical Exam Const: COMMON NORMALS: no acute distress and alert ORIENTATION/CONSCIOUSNESS: Yes awake, Yes oriented to person and Yes oriented to place; not oriented to time Resp: COMMON NORMALS: normal respiratory effort and No retractions AUSCULTATION: wheezes Cardio: COMMON NORMALS: regular rate, regular rhythm, S1 normal heart sound present and S2 normal heart sound present RATE: regular rate RHYTHM: regular rhythm HEART SOUNDS: S1 normal heart sound present and S2 normal heart sound present GI: COMMON NORMALS: Normal to inspection, nondistended, normoactive bowel sounds present, Soft to palpation and non-tender PALPATION: Yes Soft to palpation Extremity: COMMON NORMALS: no pedal edema Neuro: SENSORIUM/ORIENTATION: Yes alert, Yes oriented to person, Yes oriented to place and No oriented to time Data : 10/29/20 05:07 10/29/20 05:07 Micro: Microbiology 10/28/20 17:25 Blood Culture - Preliminary Blood SPECIMEN COLLECTED 10/28/20 14:29 Blood Culture - Preliminary Blood SPECIMEN COLLECTED A&P Assessment and plan (1) Asthma: Status: Acute Qualifiers: Asthma complication type: uncomplicated Asthma persistence: persistent Asthma severity: moderate Qualified Code(s): J45.40 - Moderate persistent asthma, uncomplicated (2) COVID-19: Status: Acute (3) Hard of hearing: Status: Acute Qualifiers: Hearing loss type: unspecified Laterality: bilateral Qualified Code(s): H91.93 - Unspecified hearing loss, bilateral (4) Obstructive sleep apnea: Status: Acute (5) Acute hypoactive delirium due to another medical condition: Status: Acute Additional A&P Information Hypoactive delirium Related to COVID-19 pneumonia, UTI Currently on 2 L No active strokelike symptoms UA has evidence of UTI No leukocytosis, lactic acid 0.7 Procalcitonin unremarkable TSH and digoxin levels within normal limits Monitor overnight for any worsening of symptoms UTI, follow urine cultures, start Primaxin COVID-19 pneumonia, with associated hypoxia Received bam infusion in the emergency room, but was not requiring oxygen Is now requiring 2 L, active wheezing, chest x-ray no focal pneumonia Inflammatory markers 21 CRP Procalcitonin unremarkable Start Decadron For now hold off on remdesivir, if she persistently has wheezing or shortness of breath or is requiring oxygen will start remdesivir in Home O2 evaluation before discharge Vitamin C, zinc, vitamin D, incentive spirometer, flutter valve Advil, albuterol 1+ pitting edema bilateral extremities, Bumex 1 mg p.o. daily Type 2 diabetes mellitus, low-dose sliding scale Atrial fibrillation, continue digoxin, Cardizem, not a candidate for anticoagulation due to falls Obstructive sleep apnea: Would use auto CPAP overnight Hypokalemia related to use of Bumex Clinically looks euvolemic Reduce the dose of Bumex to 1 mg daily, potassium repleted Full code Consistent carb diet DVT prophylaxis Lovenox Attestations Medical Necessity Statement*: Patient requires hospitalization for hypoactive delirium, COVID-19 pneumonia, 1+ pitting edema, requiring inpatient hospitalization, greater than 2 midnights Coding Level of Care Code Acute Cardiopulmonary Technologist for faust[employer] Dickens Diagnoses Asthma J45.40 Asthma complication type: uncomplicated Asthma persistence: persistent Asthma severity: moderate COVID-19 U07.1 Hard of hearing H91.93 Hearing loss type: unspecified Laterality: bilateral Obstructive sleep apnea G47.33 Acute hypoactive delirium due to another medical condition F05
[2020-10-29 13:03] LABS: Glucose Point of Care 175 mg/dL (70-110)
[2020-10-29 16:39] LABS: Coronavirus Test Green County Detected
[2020-10-29] MEDS: dilTIAZem 60 mg Tablet PO (17:14)
[2020-10-29 18:03] LABS: Glucose Point of Care 177 mg/dL (70-110)
[2020-10-29] MEDS: albuterol 8 gm MDI 2 PUFF INHALATION (20:15)
[2020-10-29 20:58] LABS: Glucose Point of Care 207 mg/dL (70-110)
[2020-10-30] VITALS (11 sets, daily range): BP systolic 121–154; BP diastolic 64–82; PULSE 60–100; RESP 14–18; TEMP 36.4–36.9; O2SAT 93–97
[2020-10-30] MEDS: dilTIAZem 60 mg Tablet PO ×3 (01:04→18:05)
[2020-10-30] MEDS: enoxaparin 40 mg/0.4 mL Syringe SUBCUT (01:04)
[2020-10-30 05:40] LABS: Hematocrit 35.8 % (37.0-47.0); Hemoglobin 10.9 g/dL (11.5-15.3); Lymphocytes # 0.5 10^3/uL (0.8-4.8); Lymphocytes % 15.1 %; Mean Corpuscular HGB Conc 30.4 g/dL (30.0-36.0); Mean Corpuscular Hemoglobin 27.4 pg (28.0-34.0); Mean Corpuscular Volume 89.9 fL (81-99); Mean Platelet Volume 9.8 fL (7.4-10.4); Monocytes # 0.2 10^3/uL (0.2-0.9); Monocytes % 5.5 %; Neutrophils # 2.55 10^3/uL (1.8-7.7); Neutrophils % 78.5 %; Nucleated Red Blood Cells % 0 %; Platelet Count 270 10^3/cmm (130-400); Red Blood Count 3.98 10^6/uL (4.1-5.3); Red Cell Distribution Width 13.5 % (12.1-15.1); White Blood Count 3.3 10^3/uL (4.0-10.0)
[2020-10-30 06:17] LABS: NT Pro B Type Natriuretic Pept 758 pg/mL (0-450); Procalcitonin 0.02 ng/mL (0-0.5)
[2020-10-30 06:28] LABS: Alanine Aminotransferase 28 U/L (0-33); Albumin Level 3.3 g/dL (3.5-5.2); Alkaline Phosphatase 70 IU/L (35-105); Anion Gap 17.2 (5-19); Aspartate Amino Transferase 27 U/L (0-32); Blood Urea Nitrogen 7 mg/dL (8-23); C Reactive Protein 17.6 mg/L (0.0-4.9); Calcium 7.6 mg/dL (8.5-10.5); Carbon Dioxide 31 mmol/L (22-29); Chloride 94 mmol/L (98-107); Creatine Phosphokinase 45 U/L (26-192); Globulin 3.1 g/dL (1.3-4.6); Glucose 158 mg/dL (65-115); Magnesium 1.3 mg/dL (1.7-2.3); Osmolality Calculated 289 mOsm/kg (285-295); Potassium 3.2 mmol/L (3.5-5.1); Sodium 139 mmol/L (136-145); Total Bilirubin 0.4 mg/dL (0.15-1.2); Total Protein 6.4 g/dL (6.6-8.7)
--- NOTE | 2020-10-30 07:00 | XRR_ITS ---
PROCEDURE INFORMATION: Exam: XR Chest Exam date and time: 10/30/2020 7:00 AM Age: 75 years old Clinical indication: Shortness of breath; Additional info: SOB TECHNIQUE: Imaging protocol: XR of the chest. Views: 1 view. COMPARISON: CR XR chest 1V portable [id number] 10/28/2020 1:14 PM FINDINGS: Lungs: Low lung volumes. No focal consolidation. Pleural spaces: Unremarkable. No pleural effusion. No pneumothorax. Heart/Mediastinum: Stable cardiomediastinal silhouette. Bones/joints: Unremarkable. XR/XR chest 1V portable [id number] IMPRESSION: No evidence active cardiopulmonary disease.
[2020-10-30 07:07] LABS: Glucose Point of Care 181 mg/dL (70-110)
[2020-10-30] MEDS: albuterol 8 gm MDI 2 PUFF INHALATION (09:28)
--- NOTE | 2020-10-30 10:26 | PC.CHAP ---
Pastoral Care Encounter/Spiritual Assessment Type of Contact [] Declined recycling tech visit [] Patient/Family/Request visit [] Outpatient visit [] Follow-up visit [] Physician referral [] Code/Alert [] Routine visit [] Staff referral [] Actively dying [] Patient sleeping [] Family support [] [] Out of room [] Palliative care [] [] Receiving care in room [] Pre-surgical visit [] Trauma [] Long length of stay [] ICU visit [x] Other: covid Relational/Emotional Strength [] Patient feels connected with others/family/visitors/staff [] Distress [] Loneliness/isolation [] Abandonment Spirituality of Patient [] Person of [place] [] Attends Hinduism of their [place] [] Believes in Prayer [] Reads Bible or Synagogue materials [] There are Spiritual issues to be addressed Refresh Technician Interventions [] Prayer [] Active listening [] Non-anxious presence [] Spiritual/emotional support [] Crisis/trauma care [] Spiritual counseling [] Bereavement support [] Provided bereavement packet [] Provided Bible/devotional materials [] Provided toy/stuffed animal, coloring book to patient or family member [] Provided Communion [] Anointing/[place] [] Salvation [] Completed spiritual assessment [] Other: Impact on Illness or Injury [] Angry [] Fearful [] Anxious [] Often cries [] Exhaustion [] Unable to work [] Unable to attend mormon [] Unable to walk/stand [] Unable to read [] Unable to drive [] Unable to eat/drink [] Unable to sleep [] Unable to be with family [] Patient intubated [] Other: Summary covid Time spent with patient 5 mins
[2020-10-30] MEDS: ascorbic acid 500 mg Tablet 1000 MG PO ×2 (10:45→18:06)
[2020-10-30] MEDS: cholecalciferol (vitamin D3) 1,000 unit Tablet 1000 UNIT PO (10:45)
[2020-10-30] MEDS: citalopram 20 mg Tablet PO (10:45)
[2020-10-30] MEDS: potassium chloride ER 20 mEq Tablet PO (10:45)
[2020-10-30] MEDS: potassium chloride ER 10 mEq Tablet PO (10:46)
[2020-10-30] MEDS: zinc gluconate 50 mg Tablet PO (10:46)
[2020-10-30] MEDS: magnesium sulfate premix 2 GM/50 ML PIGGYBACK IV (11:29)
[2020-10-30 12:05] LABS: Glucose Point of Care 207 mg/dL (70-110)
--- NOTE | 2020-10-30 13:23 | PM.PN ---
Subjective Subjective: Interval history: This morning patient was examined, she is actively wheezing, on 2 L, she tells me she has been short of breath with exertion, she is getting up to use the bathroom, she is alert and oriented x3, answers all questions appropriately, no fevers, no chills, no nausea, no vomiting Vitals/I&O/Wt Last Vital Signs Temp 97.5 F L 10/30/20 11:40 Pulse 88 10/30/20 11:40 Resp 18 10/30/20 11:40 BP 132/68 10/30/20 11:40 Pulse Ox 97 10/30/20 11:40 10/29/20 10/30/20 10/30/20 22:59 06:59 14:59 Intake Total 250 / 350 490 / 490 Output Total 100 / 100 450 / 550 Balance 150 / 250 -450 / -200 490 / 490 Weight last 48 hrs Weight 87.997 kg Physical Exam Const: COMMON NORMALS: no acute distress and patient oriented x3 Resp: COMMON NORMALS: normal respiratory effort, No retractions and No use of accessory muscles AUSCULTATION: wheezes Cardio: COMMON NORMALS: regular rate, regular rhythm, S1 normal heart sound present and S2 normal heart sound present RATE: regular rate RHYTHM: regular rhythm HEART SOUNDS: S1 normal heart sound present and S2 normal heart sound present GI: COMMON NORMALS: Normal to inspection, nondistended, normoactive bowel sounds present, Soft to palpation and non-tender PALPATION: Yes Soft to palpation Extremity: COMMON NORMALS: no pedal edema Neuro: COMMON NORMALS: patient oriented x3 Data : 10/30/20 04:51 10/30/20 04:51 Micro: Microbiology 10/28/20 17:25 Blood Culture - Preliminary Blood Coagulase negativ staphylococc 10/28/20 14:29 Blood Culture - Preliminary Blood NEGATIVE TO DATE A&P Assessment and plan (1) Asthma: Status: Acute Qualifiers: Asthma complication type: uncomplicated Asthma persistence: persistent Asthma severity: moderate Qualified Code(s): J45.40 - Moderate persistent asthma, uncomplicated (2) COVID-19: Status: Acute (3) Hard of hearing: Status: Acute Qualifiers: Hearing loss type: unspecified Laterality: bilateral Qualified Code(s): H91.93 - Unspecified hearing loss, bilateral (4) Obstructive sleep apnea: Status: Acute (5) Acute hypoactive delirium due to another medical condition: Status: Acute Additional A&P Information Hypoactive delirium Mentation back to baseline Related to COVID-19 pneumonia, UTI Currently on 2 L No active strokelike symptoms UA has evidence of UTI TSH and digoxin levels within normal limits Monitor overnight for any worsening of symptoms UTI, follow urine cultures, on Primaxin COVID-19 pneumonia, with associated hypoxia Received bam infusion in the emergency room, but was not requiring oxygen Is now requiring 2 L, active wheezing, chest x-ray no focal pneumonia Is not lymphopenia, white blood cell count 3.3 Inflammatory markers 21 CRP Procalcitonin unremarkable Start Decadron Start remdesivir day 1 of 5 Home O2 evaluation before discharge Vitamin C, zinc, vitamin D, incentive spirometer, flutter valve Advil, albuterol edema bilateral extremities, Bumex 1 mg p.o. daily Type 2 diabetes mellitus, low-dose sliding scale Atrial fibrillation, continue digoxin, Cardizem, not a candidate for anticoagulation due to falls Obstructive sleep apnea: Would use auto CPAP overnight Hypokalemia related to use of Bumex Clinically looks euvolemic Reduce the dose of Bumex to 1 mg daily, potassium repleted Full code Consistent carb diet DVT prophylaxis Lovenox Attestations Medical Necessity Statement*: Patient course hospitalization, inpatient, greater than 2 midnights, for COVID-19 pneumonia Coding Level of Care Code Acute Incident Coordinator for faust[facility] Dickens Diagnoses Asthma J45.40 Asthma complication type: uncomplicated Asthma persistence: persistent Asthma severity: moderate COVID-19 U07.1 Hard of hearing H91.93 Hearing loss type: unspecified Laterality: bilateral Obstructive sleep apnea G47.33 Acute hypoactive delirium due to another medical condition F05
[2020-10-30] MEDS: remdesivir 200 MG in sodium chloride 0.9% (100 ml) 100 ML 100 MG IV (14:15)
[2020-10-30 16:46] LABS: Glucose Point of Care 272 mg/dL (70-110)
[2020-10-30 20:41] LABS: Glucose Point of Care 275 mg/dL (70-110)
[2020-10-31] VITALS (11 sets, daily range): BP systolic 102–130; BP diastolic 64–72; PULSE 66–105; RESP 14–20; TEMP 36.3–36.9; O2SAT 91–99
[2020-10-31] MEDS: dilTIAZem 60 mg Tablet PO ×4 (00:08→17:37)
[2020-10-31] MEDS: enoxaparin 40 mg/0.4 mL Syringe SUBCUT (00:08)
[2020-10-31] MEDS: remdesivir 100 MG in sodium chloride 0.9% (100 ml) 100 ML IV (05:25)
[2020-10-31 05:40] LABS: Basophils % 0.2 %; Hematocrit 34.7 % (37.0-47.0); Hemoglobin 10.4 g/dL (11.5-15.3); Lymphocytes # 0.6 10^3/uL (0.8-4.8); Lymphocytes % 12.2 %; Mean Corpuscular Hemoglobin 27.3 pg (28.0-34.0); Mean Corpuscular Volume 91.1 fL (81-99); Mean Platelet Volume 9.1 fL (7.4-10.4); Monocytes # 0.4 10^3/uL (0.2-0.9); Monocytes % 9.8 %; Neutrophils # 3.48 10^3/uL (1.8-7.7); Neutrophils % 77.1 %; Nucleated Red Blood Cells % 0 %; Platelet Count 295 10^3/cmm (130-400); Red Blood Count 3.81 10^6/uL (4.1-5.3); Red Cell Distribution Width 13.5 % (12.1-15.1); White Blood Count 4.5 10^3/uL (4.0-10.0)
[2020-10-31 06:09] LABS: NT Pro B Type Natriuretic Pept 625 pg/mL (0-450); Procalcitonin 0.02 ng/mL (0-0.5)
[2020-10-31 06:21] LABS: Alanine Aminotransferase 26 U/L (0-33); Alkaline Phosphatase 66 IU/L (35-105); Anion Gap 13.8 (5-19); Aspartate Amino Transferase 32 U/L (0-32); Blood Urea Nitrogen 12 mg/dL (8-23); C Reactive Protein 8.4 mg/L (0.0-4.9); Calcium 7.6 mg/dL (8.5-10.5); Carbon Dioxide 30 mmol/L (22-29); Chloride 98 mmol/L (98-107); Creatine Phosphokinase 30 U/L (26-192); Glucose 132 mg/dL (65-115); Magnesium 1.6 mg/dL (1.7-2.3); Osmolality Calculated 288 mOsm/kg (285-295); Phosphorus 3.4 mg/dL (2.5-4.5); Potassium 3.8 mmol/L (3.5-5.1); Sodium 138 mmol/L (136-145); Total Bilirubin 0.4 mg/dL (0.15-1.2)
[2020-10-31 06:45] LABS: Glucose Point of Care 152 mg/dL (70-110)
[2020-10-31] MEDS: bumetanide 1 mg Tablet PO (08:07)
[2020-10-31] MEDS: digoxin 125 mcg Tablet PO (08:07)
[2020-10-31] MEDS: citalopram 20 mg Tablet PO (08:07)
[2020-10-31] MEDS: potassium chloride ER 10 mEq Tablet PO (08:07)
[2020-10-31] MEDS: cholecalciferol (vitamin D3) 1,000 unit Tablet 1000 UNIT PO (08:07)
[2020-10-31] MEDS: zinc gluconate 50 mg Tablet PO (08:07)
[2020-10-31] MEDS: lisinopril 2.5 mg Tablet PO (08:08)
[2020-10-31] MEDS: dexamethasone 10 mg/mL INJ 6 MG IVP (09:06)
[2020-10-31 10:50] LABS: Glucose Point of Care 196 mg/dL (70-110)
[2020-10-31] MEDS: ascorbic acid 500 mg Tablet 1000 MG PO ×2 (11:04→17:37)
[2020-10-31] MEDS: albuterol 8 gm MDI 2 PUFF INHALATION ×3 (11:04→20:25)
[2020-10-31] MEDS: magnesium oxide 400 mg tablet 200 MG PO (11:04)
--- NOTE | 2020-10-31 12:01 | PC.CHAP ---
Pastoral Care Encounter/Spiritual Assessment Type of Contact [] Declined supervisor tumbling and rolling visit [] Patient/Family/Request visit [] Outpatient visit [] Follow-up visit [] Physician referral [] Code/Alert [] Routine visit [] Staff referral [] Actively dying [] Patient sleeping [] Family support [] [] Out of room [] Palliative care [] [] Receiving care in room [] Pre-surgical visit [] Trauma [] Long length of stay [] ICU visit [xx] Other: ISOLATION Relational/Emotional Strength [] Patient feels connected with others/family/visitors/staff [] Distress [] Loneliness/isolation [] Abandonment Spirituality of Patient [] Person of Penny [] Attends Gnosticism of their [place] [] Believes in Prayer [] Reads Bible or Voodoo materials [] There are Spiritual issues to be addressed Special Effects Makeup Artist Interventions [] Prayer [] Active listening [] Non-anxious presence [] Spiritual/emotional support [] Crisis/trauma care [] Spiritual counseling [] Bereavement support [] Provided bereavement packet [] Provided Bible/devotional materials [] Provided toy/stuffed animal, coloring book to patient or family member [] Provided Communion [] Anointing/[place] [] Salvation [] Completed spiritual assessment [] Other: Impact on Illness or Injury [] Angry [] Fearful [] Anxious [] Often cries [] Exhaustion [] Unable to work [] Unable to attend yazidism [] Unable to walk/stand [] Unable to read [] Unable to drive [] Unable to eat/drink [] Unable to sleep [] Unable to be with family [] Patient intubated [] Other: Summary Time spent with patient
--- NOTE | 2020-10-31 13:29 | PM.PN ---
Subjective Subjective: Interval history: Patient was seen this morning, she tells me she is doing okay, is actively wheezing, no cough, no fevers, no shortness of breath, she is very hard of hearing, and had to communicate with her via writing Vitals/I&O/Wt Last Vital Signs Temp 97.5 F L 10/31/20 11:49 Pulse 78 10/31/20 11:49 Resp 16 10/31/20 11:49 BP 123/64 10/31/20 11:49 Pulse Ox 99 10/31/20 11:49 10/30/20 10/31/20 10/31/20 22:59 06:59 14:59 Intake Total 540 / 1270 200 / 1470 340 / 340 Output Total 200 / 200 Balance 540 / 1270 0 / 1270 340 / 340 Physical Exam Const: COMMON NORMALS: no acute distress Resp: COMMON NORMALS: normal respiratory effort, No retractions and No use of accessory muscles AUSCULTATION: wheezes Cardio: COMMON NORMALS: regular rate, regular rhythm, S1 normal heart sound present, S2 normal heart sound present and No murmurs present (Cardio) RATE: regular rate RHYTHM: regular rhythm HEART SOUNDS: S1 normal heart sound present and S2 normal heart sound present GI: COMMON NORMALS: Normal to inspection, nondistended, normoactive bowel sounds present, Soft to palpation and non-tender PALPATION: Yes Soft to palpation Extremity: COMMON NORMALS: no pedal edema Data : 10/31/20 05:31 10/31/20 05:31 Micro: Microbiology 10/31/20 10:30 Blood Culture - Preliminary Blood SPECIMEN COLLECTED 10/31/20 10:37 Blood Culture - Preliminary Blood SPECIMEN COLLECTED 10/28/20 17:25 Blood Culture - Preliminary Blood Coagulase negativ staphylococc A&P Assessment and plan (1) Asthma: Status: Acute Qualifiers: Asthma complication type: uncomplicated Asthma persistence: persistent Asthma severity: moderate Qualified Code(s): J45.40 - Moderate persistent asthma, uncomplicated (2) COVID-19: Status: Acute (3) Hard of hearing: Status: Acute Qualifiers: Hearing loss type: unspecified Laterality: bilateral Qualified Code(s): H91.93 - Unspecified hearing loss, bilateral (4) Obstructive sleep apnea: Status: Acute (5) Acute hypoactive delirium due to another medical condition: Status: Acute Additional A&P Information Hypoactive delirium Mentation back to baseline Related to COVID-19 pneumonia, UTI Currently on 2 L No active strokelike symptoms UA has evidence of UTI TSH and digoxin levels within normal limits Monitor overnight for any worsening of symptoms UTI, follow urine cultures, on Primaxin COVID-19 pneumonia, with associated hypoxia Received bam infusion in the emergency room, but was not requiring oxygen Is now requiring 2 L, active wheezing, chest x-ray no focal pneumonia Lymphopenia resolving Inflammatory markers 21 CRP Procalcitonin unremarkable On Decadron On remdesivir day of 2 Home O2 evaluation before discharge Vitamin C, zinc, vitamin D, incentive spirometer, flutter valve Advil, albuterol edema bilateral extremities, Bumex 1 mg p.o. daily Type 2 diabetes mellitus, low-dose sliding scale Atrial fibrillation, continue digoxin, Cardizem, not a candidate for anticoagulation due to falls Obstructive sleep apnea: Would use auto CPAP overnight Hypokalemia related to use of Bumex Clinically looks euvolemic Reduce the dose of Bumex to 1 mg daily, potassium repleted Full code Consistent carb diet DVT prophylaxis Lovenox Attestations Medical Necessity Statement*: Patient requires hospitalization due to COVID-19 pneumonia Coding Level of Care Code Acute Production Hand for [facility] Fwd Diagnoses Asthma J45.40 Asthma complication type: uncomplicated Asthma persistence: persistent Asthma severity: moderate COVID-19 U07.1 Hard of hearing H91.93 Hearing loss type: unspecified Laterality: bilateral Obstructive sleep apnea G47.33 Acute hypoactive delirium due to another medical condition F05
[2020-10-31 16:49] LABS: Glucose Point of Care 247 mg/dL (70-110)
[2020-10-31 20:35] LABS: Glucose Point of Care 210 mg/dL (70-110)
[2020-11-01] VITALS (8 sets, daily range): BP systolic 102–140; BP diastolic 72–76; PULSE 79–90; RESP 16–19; TEMP 36.3–36.7; O2SAT 87–94
[2020-11-01] MEDS: enoxaparin 40 mg/0.4 mL Syringe SUBCUT (00:53)
[2020-11-01] MEDS: dilTIAZem 60 mg Tablet PO ×3 (00:53→12:30)
[2020-11-01] MEDS: remdesivir 100 MG in sodium chloride 0.9% (100 ml) 100 ML IV (05:03)
--- NOTE | 2020-11-01 06:49 | PC.RESP ---
RT Shift Note Frequent safety and respiratory rounds continue. Orders completed as indicated. Patient monitored pre and post treatments throughout shift. Patient Did tolerate treatments appropriately. Condition DidNotChange. Will continue to monitor patient progress.
[2020-11-01 06:57] LABS: Glucose Point of Care 224 mg/dL (70-110)
[2020-11-01 07:11] LABS: Basophils % 0.2 %; Hematocrit 35.4 % (37.0-47.0); Hemoglobin 10.6 g/dL (11.5-15.3); Lymphocytes # 0.5 10^3/uL (0.8-4.8); Lymphocytes % 11.3 %; Mean Corpuscular HGB Conc 29.9 g/dL (30.0-36.0); Mean Corpuscular Hemoglobin 27.3 pg (28.0-34.0); Mean Corpuscular Volume 91.2 fL (81-99); Mean Platelet Volume 9.2 fL (7.4-10.4); Monocytes # 0.4 10^3/uL (0.2-0.9); Monocytes % 9.9 %; Neutrophils # 3.25 10^3/uL (1.8-7.7); Neutrophils % 76.9 %; Nucleated Red Blood Cells % 0 %; Platelet Count 316 10^3/cmm (130-400); Red Blood Count 3.88 10^6/uL (4.1-5.3); Red Cell Distribution Width 13.5 % (12.1-15.1); White Blood Count 4.2 10^3/uL (4.0-10.0)
[2020-11-01 07:51] LABS: Alanine Aminotransferase 28 U/L (0-33); Albumin Level 3.2 g/dL (3.5-5.2); Alkaline Phosphatase 63 IU/L (35-105); Anion Gap 18.4 (5-19); Aspartate Amino Transferase 28 U/L (0-32); Blood Urea Nitrogen 22 mg/dL (8-23); C Reactive Protein 4.6 mg/L (0.0-4.9); Calcium 7.6 mg/dL (8.5-10.5); Carbon Dioxide 29 mmol/L (22-29); Chloride 95 mmol/L (98-107); Globulin 3.2 g/dL (1.3-4.6); Glucose 205 mg/dL (65-115); Magnesium 1.4 mg/dL (1.7-2.3); Osmolality Calculated 297 mOsm/kg (285-295); Potassium 3.4 mmol/L (3.5-5.1); Sodium 139 mmol/L (136-145); Total Bilirubin 0.4 mg/dL (0.15-1.2); Total Protein 6.4 g/dL (6.6-8.7)
[2020-11-01 07:57] LABS: NT Pro B Type Natriuretic Pept 462 pg/mL (0-450); Procalcitonin 0.04 ng/mL (0-0.5)
[2020-11-01 08:13] LABS: Creatine Phosphokinase 27 U/L (26-192)
[2020-11-01] MEDS: citalopram 20 mg Tablet PO (09:28)
[2020-11-01] MEDS: lisinopril 2.5 mg Tablet PO (09:28)
[2020-11-01] MEDS: digoxin 125 mcg Tablet PO (09:28)
[2020-11-01] MEDS: cholecalciferol (vitamin D3) 1,000 unit Tablet 1000 UNIT PO (09:28)
[2020-11-01] MEDS: zinc gluconate 50 mg Tablet PO (09:29)
[2020-11-01] MEDS: ascorbic acid 500 mg Tablet 1000 MG PO (09:29)
[2020-11-01] MEDS: bumetanide 1 mg Tablet PO (09:29)
[2020-11-01] MEDS: potassium chloride ER 10 mEq Tablet PO (09:29)
[2020-11-01] MEDS: magnesium oxide 400 mg tablet 200 MG PO (09:30)
[2020-11-01] MEDS: dexamethasone 10 mg/mL INJ 6 MG IVP (09:31)
[2020-11-01] MEDS: albuterol 8 gm MDI 2 PUFF INHALATION (09:51)
--- NOTE | 2020-11-01 11:33 | P.DS_ITS ---
Discharge Providers Date of Admission: 10/30/20 13:50 Date of Discharge: November 01, 2020 Attending Provider at Admission: Montserrat Camacho MD Attending Provider at Discharge: Hermilo Hunter MD Primary Care Provider: HO Silva Diagnoses at Discharge Discharge Diagnosis (1) Asthma: Status: Inactive Qualifiers: Asthma complication type: uncomplicated Asthma persistence: persistent Asthma severity: moderate Qualified Code(s): J45.40 - Moderate persistent asthma, uncomplicated (2) COVID-19: Status: Acute (3) Hard of hearing: Status: Inactive Qualifiers: Hearing loss type: unspecified Laterality: bilateral Qualified Code(s): H91.93 - Unspecified hearing loss, bilateral (4) Obstructive sleep apnea: Status: Acute Permanent problem details: Wears CPAP (5) Acute hypoactive delirium due to another medical condition: Status: Acute Reason for Visit Reason for Visit: MILD AMS, LOW O2 Hospital Course Hospital Course This is a 75-year-old female with a past medical history of obstructive sleep apnea on CPAP, history of diastolic CHF, history of atrial fibrillation previously on anticoagulation not currently on a candidate for anticoagulation due to falls, history of asthma, who presents to [facility] due to wheezing and confusion. Patient was admitted to [facility] for hypoactive delirium and COVID- 19 pneumonia. Her hypoactive delirium multifactorial from hypoxia from COVID-19 and urine urinary tract infection, she received inpatient treatment with Primaxin, she finished antibiotic treatment as inpatient, mentation returned back to baseline. In terms of her COVID-19 pneumonia, she initially received a bam infusion in the emergency room, did not require oxygen in the emergency room, but did start to develop wheezing, and requiring up to 2 L, chest x-ray no focal pneumonia, no significant inflammatory marker elevation, thus I kept her on Decadron for 24 hours, however she continued to require up to 2 L, had wheezing, thus I gave her 2 days of remdesivir. Patient clinically improved, ambulating without significant symptomatology, her wheezing had resolved, she alternated between room air and 2 L. Given that she was relatively asymptomatic, I decided to discharge her after 2 days of remdesivir, she requires 2 L on discharge, ambulating without significant pathology, no active wheezing on exam, remains afebrile. Patient was advised to continue to self isolate at least 21 days from symptom onset, facemask, hand wash, monitor fevers and shortness of breath. She was also advised to talk to primary care provider about getting Covid vaccination within a month from symptom onset. In addition of strongly advise for flu vaccine. In terms of hypercoagulability prophylaxis for COVID-19, she was ambulatory during her hospitalization, but she does have some degree of risk for hypercoagulability including but not limited to DVTs and PEs. Unfortunately anticoagulation is relatively contraindicated due to her high risk of falls. Thus I will discharge her on aspirin 81 mg. I advised patient she does have a risk of DVT and PE, aspirin will provide some benefit, but not as much as an anticoagulant. Nonetheless she is advised to continue ambulating, monitor for signs for DVT or PE, if so call 911 go to the emergency room. Follow-up with primary care provider in 1 week. Physical Exam Const: COMMON NORMALS: no acute distress and patient oriented x3 Resp: COMMON NORMALS: normal respiratory effort, No retractions, No use of accessory muscles and clear to auscultation bilaterally AUSCULTATION: clear to auscultation bilaterally Cardio: COMMON NORMALS: regular rate, regular rhythm, S1 normal heart sound present and S2 normal heart sound present RATE: regular rate RHYTHM: regular rhythm HEART SOUNDS: S1 normal heart sound present and S2 normal heart sound present GI: COMMON NORMALS: Normal to inspection, nondistended, normoactive bowel sounds present, Soft to palpation and non-tender PALPATION: Yes Soft to palpation Extremity: COMMON NORMALS: no pedal edema Neuro: COMMON NORMALS: patient oriented x3 Psych: COMMON NORMALS: mental status grossly normal Discharge Data Data Completed and Pending: Completed Studies During Hospitalization Category Date Time Status CT head wo con* 7 0450 Urgent Cat Scan 10/28/20 17:42 Completed XR chest 1V anum ble [id number] Routine Exams 10/30/20 07:00 Completed XR chest 1V anum ble [id number] Stat Exams 10/28/20 13:00 Completed Pending at discharge Category Date Time Status Blood Culture Sta t Lab 10/28/20 17:25 Results Blood Culture Sta t Lab 10/31/20 10:30 Results Urinalysis Stat Lab 10/28/20 16:25 Uncollected Labs from last 24 hours 11/01/20 11/01/20 11/01/20 06:55 06:55 06:55 WBC 4.2 RBC 3.88 L Hgb 10.6 L Hct 35.4 L MCV 91.2 MCH 27.3 L MCHC 29.9 L RDW 13.5 Plt Count 316 MPV 9.2 Neut % (Auto) 76.9 Lymph % (Auto) 11.3 [place] % (Auto) 9.9 Eos % (Auto) 0.0 Baso % (Auto) 0.2 Neut # (Auto) 3.25 Lymph # (Auto) 0.5 L [place] # (Auto) 0.4 Eos # (Auto) 0.0 Baso # (Auto) 0.0 Nucleated RBC % (a uto) 0 Nucleated RBCs # 0.0 Sodium 139 Potassium 3.4 L Chloride 95 L Carbon Dioxide 29 Anion Gap 18.4 BUN 22 Creatinine 0.5 GFR Calculation Not Reportable Glucose 205 H POC Glucose Calculated Osmolal ity 297 H Calcium 7.6 L Phosphorus 4.0 Magnesium 1.4 L Total Bilirubin 0.4 AST 28 ALT 28 Alkaline Phosphata se 63 Creatine Kinase 27 C-Reactive Protein 4.6 NT-Pro-B Natriuret Pep 462 H Total Protein 6.4 L Albumin 3.2 L Globulin 3.2 Procalcitonin 0.04 11/01/20 10/31/20 10/31/20 06:36 20:21 16:39 WBC RBC Hgb Hct MCV MCH MCHC RDW Plt Count MPV Neut % (Auto) Lymph % (Auto) [place] % (Auto) Eos % (Auto) Baso % (Auto) Neut # (Auto) Lymph # (Auto) [place] # (Auto) Eos # (Auto) Baso # (Auto) Nucleated RBC % (a uto) Nucleated RBCs # Sodium Potassium Chloride Carbon Dioxide Anion Gap BUN Creatinine GFR Calculation Glucose POC Glucose 224 H 210 H 247 H Calculated Osmolal ity Calcium Phosphorus Magnesium Total Bilirubin AST ALT Alkaline Phosphata se Creatine Kinase C-Reactive Protein NT-Pro-B Natriuret Pep Total Protein Albumin Globulin Procalcitonin Vitals: Last Vital Signs Temp 97.6 F 11/01/20 09:22 Pulse 86 11/01/20 09:51 Resp 16 11/01/20 09:51 BP 140/74 11/01/20 09:22 Pulse Ox 90 11/01/20 09:58 Discharge Plan Discharge Patient Disposition: Home Condition: Stable Prescriptions: New ascorbic acid (vitamin C) [Vitamin C] 500 mg Tablet 500 mg PO BID 30 Days Qty: 60 RF: 0 zinc gluconate 50 mg Tablet 50 mg PO DAILY 30 Days Qty: 30 RF: 0 albuterol sulfate 90 mcg/actuation HFA aerosol inhaler 1 inh inhalation Q6H PRN (Reason: shortness of breath or wheezing) Qty: 8.5 RF: 0 prednisone 20 mg tablet 20 mg PO BID 5 Days Qty: 10 RF: 0 cholecalciferol (vitamin D3) 25 mcg (1,000 unit) Tablet 1,000 unit PO DAILY 30 Days Qty: 30 RF: 0 aspirin 81 mg tablet,delayed release (DR/EC) 81 mg PO DAILY 30 Days Qty: 30 RF: 0 Continued magnesium 200 mg tablet 200 mg PO DAILY RF: 0 digoxin [Digox] 125 mcg (0.125 mg) tablet 125 mcg PO DAILY MDD SEE PHARMACY COMMENT-ON HOLD RF: 0 Hold Instructions: Resume on 08/27/19. Discuss with PCP before resuming oxymetazoline [Vicks Sinex 12-Hour] 0.05 % spray,non-aerosol 2 spray intranasal Q12H PRN (Reason: Nasal Congestion) RF: 0 levalbuterol tartrate [Xopenex HFA] 45 mcg/actuation HFA aerosol inhaler 2 inh inhalation Q6H Qty: 15 RF: 3 budesonide-formoterol [Symbicort] 80-4.5 mcg/actuation HFA aerosol inhaler 2 puff inhalation BID Qty: 10.2 RF: 3 omeprazole 20 mg capsule,delayed release(DR/EC) 20 mg PO BID Qty: 180 RF: 0 potassium chloride 10 mEq tablet,ER particles/crystals 10 meq PO DAILY Qty: 90 RF: 0 pioglitazone 15 mg Tablet 15 mg PO DAILY RF: 0 Hold Instructions: Resume on 08/27/19. Discuss with PCP before resuming citalopram 20 mg tablet 20 mg PO DAILY RF: 0 diltiazem HCl 90 mg capsule,extended release 12 hr 90 mg PO BID RF: 0 gabapentin 100 mg capsule 100 mg PO TID RF: 0 lisinopril 2.5 mg tablet 2.5 mg PO DAILY RF: 0 glipizide-metformin 5-500 mg tablet 2 tab PO BID RF: 0 bumetanide 2 mg tablet 2 mg PO DAILY RF: 0 cetirizine 10 mg capsule 10 mg PO DAILY RF: 0 Discharge Orders: Discharge Order (Routine); Ordered 11/01/20 Ordered By: Hermilo Hunter Other Ambulatory Orders: DME: Oxygen (Order) Location: None Selected Ordered By: Hermilo Hunter Referrals: Jessica Pena FNP [Primary Care Provider] - 1 week Discharge Diet: Cardiac Discharge Activity: Resume usual activity Patient Instructions: Opioid Safety Activity Restrictions/Additional Instructions: -Please continue to socially distance, hand wash, facemask, socially isolate for at least 21 days since symptom onset -Monitor for shortness of breath -Monitor for signs of blood clot including calf pain, calf swelling, sudden onset shortness of breath, or leg swelling if so go to the emergency room - Discharge Attestations Time Spent in Discharge Care*: less than 30 min Quality Metrics Clinical Quality Measures During this hospital stay, did patient experience: None Coding Level of Care Code Acute g FW DC note Diagnoses Asthma J45.40 Asthma complication type: uncomplicated Asthma persistence: persistent Asthma severity: moderate COVID-19 U07.1 Hard of hearing H91.93 Hearing loss type: unspecified Laterality: bilateral Obstructive sleep apnea G47.33 Acute hypoactive delirium due to another medical condition F05
[2020-11-01 12:39] LABS: Glucose Point of Care 218 mg/dL (70-110)
--- NOTE | 2020-11-07 08:58 | PC.SOCIAL ---
multiple follow up call attempts made. unable to reach patient. no answering machine.
== END 2020-11-01 15:00 | disposition home health service (06) | DRG 177 ==
LOC: ER 12:02 → ER IP 10-29 02:22 → MEDSURG 10-29 09:22
PROVIDERS: Admitting Provider Internal Medicine; Emergency Provider Emergency Medicine; PCP Nurse Practitioner Family; Visit Provider Family Medicine
DX: U07.1 COVID-19 (principal); J12.82 Pneumonia due to coronavirus disease 2019; I50.32 Chronic diastolic (congestive) heart failure; F05 Delirium due to known physiological condition; N39.0 Urinary tract infection, site not specified; J45.40 Moderate persistent asthma, uncomplicated; I11.0 Hypertensive heart disease with heart failure; E11.9 Type 2 diabetes mellitus without complications; K21.9 Gastro-esophageal reflux disease without esophagitis; M10.9 Gout, unspecified; G47.33 Obstructive sleep apnea (adult) (pediatric); E89.0 Postprocedural hypothyroidism; I48.91 Unspecified atrial fibrillation; H91.93 Unspecified hearing loss, bilateral; E87.6 Hypokalemia
CPT/HCPCS: 36415; 36416; 36600; 70450; 71045; 80048; 80053; 80162; 81001; 82550; 82728; 82803; 82962; 83605; 83735; 83880; 84100; 84145; 84443; 84484; 85025; 85378; 85384; 85610; 85730; 86140; 87040; 87205; 87635; 93005; 94640; 96365; 96367; 96372; 96375; 97110; 97116; 97161; 97530; 99285; G0378; J0743; J1100; J1650; J1815; J2060; J3475; J3535; J7512

== ENCOUNTER 2020-11-24 12:35 | Emergency (ER) | payer MEDICARE, MEDICAID, SELFPAY ==
[2020-11-24 12:36] VITALS: BP 147/63; PULSE 100; RESP 15; TEMP 36.7; O2SAT 100; BMI 38.7
--- NOTE | 2020-11-24 12:43 | ED_ITS ---
HPI - General Adult General: Chief complaint: Extremity Problem,Nontraumatic Stated complaint: swollen ble, redness, rales, rhonchi Time Seen by Provider: 11/24/20 12:35 History of Present Illness: HPI narrative: 75-year-old female presents emergency room complaining of swelling redness in her lower extremities she also has noted some shortness of breath and palpitation she has a known history of congestive heart failure. Onset (ago): minute(s) Severity: mild Relieving factors: none Exacerbating factors: none Associated symptoms: Reports confusion (chronic) and decreased appetite; Deny chest pain, cough, diaphoresis, dyspnea, fevers/chills, headache(s), malai se, nausea, rash, palpitations, seizures, short of breath, syncope, vomiting or weakness Treatments prior to arrival: none Review of Systems Const: Denies: malaise or diaphoresis ENMT: Denies: throat pain, ear or mastoid pain, nasal discharge or nasal congestion Card: Denies: chest pain, palpitations or syncope Resp: Denies: dyspnea GI: Denies: nausea or vomiting : Denies: flank pain, difficulty voiding, dysuria, urinary frequency or urinary urgency Skin/Breast: Denies: rash Neuro: Reports: confusion (chronic); Denies: headache(s) PFSH ED PFSH: Medical History Asthma Diabetes mellitus type 2, noninsulin dependent Encounter for monitoring digoxin therapy GERD (gastroesophageal reflux disease) Gout Hard of hearing Hypertension Obstructive sleep apnea Wears CPAP PVCs (premature ventricular contractions) Surgical History History of bladder surgery History of cataract surgery History of cholecystectomy History of hysterectomy History of partial thyroidectomy Family History Other CAD (coronary artery disease) Hypertension Social History Smoking and tobacco status: never smoked Second hand smoke exposure: Yes Smoking risk assessment/counseling performed?: Yes Alcohol intake: never Desire information about alcohol rehabilitation?: No Counseling given: No Adopted: No Caregiver/support person: Yes Lives independently: Yes Household members: none Housing: Other Details: Senior Housing Marital status: Single Current occupational status: disabled Pets and animals: No History of recent travel: No Current gender identity: Female Physical Exam Const: COMMON NORMALS: no acute distress GENERAL APPEARANCE: cooperative and comfortable ORIENTATION/CONSCIOUSNESS: Yes awake, Yes oriented to person, Yes oriented to place and Yes oriented to time HENMT: COMMON NORMALS: normocephalic, atraumatic and hearing grossly normal bilaterally HEAD & SCALP: normocephalic and atraumatic Neck/C-Spine: COMMON NORMALS: no JVD Lymph: LYMPHATIC: no lymphadenopathy noted and no lymphedema noted Resp: COMMON NORMALS: normal respiratory effort, No retractions, No use of accessory muscles and clear to auscultation bilaterally AUSCULTATION: clear to auscultation bilaterally Cardio: COMMON NORMALS: no JVD, regular rate, regular rhythm and No murmurs present (Cardio) RATE: regular rate RHYTHM: regular rhythm GI: COMMON NORMALS: Soft to palpation and No hepatosplenomegaly present AUSCULTATION: Yes normoactive bowel sounds PALPATION: Yes Soft to palpation, No Tenderness to palpation present (GI), No Guarding due to palpation present (GI) and Yes No hepatosplenomegaly present Extremity: NARRATIVE EXTREMITY EXAM: 3+ edema lower extremities with pitting edema erythematous and indurated no open wounds some serous drainage from splitting in the skin no purulent drainage Neuro: SENSORIUM/ORIENTATION: Yes oriented to person, Yes oriented to place and Yes oriented to time Skin: COMMON NORMALS: no rashes or lesions noted GENERAL SKIN EXAM: no rashes or lesions noted Course Vital Signs: Vital signs: Vital Signs Temperature 98.0 F 11/24/20 12:36 Pulse Rate 90 11/24/20 14:00 Respiratory Rate 18 11/24/20 14:00 Blood Pressure 164/101 11/24/20 14:00 Pulse Oximetry 100 11/24/20 14:00 MDM - General Adult MDM Narrative: Medical decision making narrative: Reviewed labs and imaging. Will discharge patient home in increase her Bumex to 4 mg daily for 5 days then resume 2 mg daily add clindamycin for the cellulitis lower extremities are white count is normal chest x-ray does not show any acute Lab Data: Labs: Lab Results 11/24/20 11/24/20 11/24/20 Range/Units 13:30 13:30 13:30 WBC 5.2 (4.0-10.0) 10^3/ uL RBC 3.51 L (4.1-5.3) 10^6/u L Hgb 10.1 L (11.5-15.3) g/dL Hct 32.7 L (37.0-47.0) % MCV 93.2 (81-99) fl MCH 28.8 (28.0-34.0) pg MCHC 30.9 (30.0-36.0) g/dL RDW 15.4 H (12.1-15.1) % Plt Count 241 (130-400) 10^3/c mm MPV 8.9 (7.4-10.4) fL Neut % (Auto) 69.4 % Lymph % (Auto) 21.1 % [place] % (Auto) 6.9 % Eos % (Auto) 1.2 % Baso % (Auto) 0.4 % Neut # (Auto) 3.62 (1.8-7.7) 10^3/u L Lymph # (Auto) 1.1 (0.8-4.8) 10^3/u L [place] # (Auto) 0.4 (0.2-0.9) 10^3/u L Eos # (Auto) 0.1 (0.0-0.8) 10^3/u L Baso # (Auto) 0.0 (0.0-0.1) 10^3/u L Nucleated RBC % (a uto) 0 % Nucleated RBCs # 0.0 /100WBC Sodium 132 L (136-145) mmol/L Potassium 3.9 (3.5-5.1) mmol/L Chloride 97 L (98-107) mmol/L Carbon Dioxide 26 (22-29) mmol/L Anion Gap 12.9 (5-19) BUN 10 (8-23) mg/dL Creatinine 0.5 (0.5-0.9) mg/dL GFR Calculation Not Reportable Glucose 126 H (65-115) mg/dL Calculated Osmolal ity 275 L (285-295) mOsm/k g Lactic Acid 0.8 (0.5-2.2) mmol/L Calcium 8.5 (8.5-10.5) mg/dL Total Bilirubin 0.5 (0.15-1.2) mg/dL AST 10 (0-32) U/L ALT 9 (0-33) U/L Alkaline Phosphata se 77 (35-105) IU/L NT-Pro-B Natriuret Pep 1487 H (0-450) pg/mL Total Protein 6.6 (6.6-8.7) g/dL Albumin 3.1 L (3.5-5.2) g/dL Globulin 3.5 (1.3-4.6) g/dL Urine Color (Yellow) Urine Appearance (CLEAR) Urine pH (5-7) Ur Specific Gravit y (1.005-1.030) Urine Protein (Negative) Urine Glucose (UA) (Normal) Urine Ketones (Negative) Urine Blood (Negative) Urine Nitrate (Negative) Urine Bilirubin (Negative) Urine Urobilinogen (Negative) mg/dL Ur Leukocyte Carmita ase (Negative) Digoxin (0.6-1.2) ng/mL 11/24/20 11/24/20 Range/Units 13:30 13:54 WBC (4.0-10.0) 10^3/ uL RBC (4.1-5.3) 10^6/u L Hgb (11.5-15.3) g/dL Hct (37.0-47.0) % MCV (81-99) fl MCH (28.0-34.0) pg MCHC (30.0-36.0) g/dL RDW (12.1-15.1) % Plt Count (130-400) 10^3/c mm MPV (7.4-10.4) fL Neut % (Auto) % Lymph % (Auto) % [place] % (Auto) % Eos % (Auto) % Baso % (Auto) % Neut # (Auto) (1.8-7.7) 10^3/u L Lymph # (Auto) (0.8-4.8) 10^3/u L [place] # (Auto) (0.2-0.9) 10^3/u L Eos # (Auto) (0.0-0.8) 10^3/u L Baso # (Auto) (0.0-0.1) 10^3/u L Nucleated RBC % (a uto) % Nucleated RBCs # /100WBC Sodium (136-145) mmol/L Potassium (3.5-5.1) mmol/L Chloride (98-107) mmol/L Carbon Dioxide (22-29) mmol/L Anion Gap (5-19) BUN (8-23) mg/dL Creatinine (0.5-0.9) mg/dL GFR Calculation Glucose (65-115) mg/dL Calculated Osmolal ity (285-295) mOsm/k g Lactic Acid (0.5-2.2) mmol/L Calcium (8.5-10.5) mg/dL Total Bilirubin (0.15-1.2) mg/dL AST (0-32) U/L ALT (0-33) U/L Alkaline Phosphata se (35-105) IU/L NT-Pro-B Natriuret Pep (0-450) pg/mL Total Protein (6.6-8.7) g/dL Albumin (3.5-5.2) g/dL Globulin (1.3-4.6) g/dL Urine Color Yellow (Yellow) Urine Appearance Clear (CLEAR) Urine pH 7 (5-7) Ur Specific Gravit y 1.005 (1.005-1.030) Urine Protein Neg (Negative) Urine Glucose (UA) Norm (Normal) Urine Ketones Negative (Negative) Urine Blood Neg (Negative) Urine Nitrate Negative (Negative) Urine Bilirubin Neg (Negative) Urine Urobilinogen Norm (Negative) mg/dL Ur Leukocyte Carmita ase Negative (Negative) Digoxin < 0.3 L (0.6-1.2) ng/mL Discharge Plan Discharge Patient Disposition: Home Clinical Impression: Cellulitis, Edema of right lower leg due to peripheral venous insufficiency, CHF (congestive heart failure) Condition: Stable Prescriptions: New clindamycin HCl 300 mg capsule 300 mg PO Q8H 10 Days Qty: 30 RF: 0 Changed bumetanide 2 mg tablet 4 mg PO DAILY Qty: 0 RF: 0 No Action magnesium 200 mg tablet 200 mg PO DAILY RF: 0 digoxin [Digox] 125 mcg (0.125 mg) tablet 125 mcg PO DAILY MDD SEE PHARMACY COMMENT-ON HOLD RF: 0 Hold Instructions: Resume on 08/27/19. Discuss with PCP before resuming oxymetazoline [Vicks Sinex 12-Hour] 0.05 % spray,non-aerosol 2 spray intranasal Q12H PRN (Reason: Nasal Congestion) RF: 0 levalbuterol tartrate [Xopenex HFA] 45 mcg/actuation HFA aerosol inhaler 2 inh inhalation Q6H Qty: 15 RF: 3 budesonide-formoterol [Symbicort] 80-4.5 mcg/actuation HFA aerosol inhaler 2 puff inhalation BID Qty: 10.2 RF: 3 potassium chloride 10 mEq tablet,ER particles/crystals 10 meq PO DAILY Qty: 90 RF: 0 omeprazole 20 mg capsule,delayed release(DR/EC) See Rx Instructions .ROUTE .COMPLEX Qty: 180 RF: 0 cetirizine 10 mg capsule 10 mg PO DAILY Qty: 90 RF: 0 pioglitazone 15 mg Tablet 15 mg PO DAILY RF: 0 Hold Instructions: Resume on 08/27/19. Discuss with PCP before resuming citalopram 20 mg tablet 20 mg PO DAILY RF: 0 diltiazem HCl 90 mg capsule,extended release 12 hr 90 mg PO BID RF: 0 gabapentin 100 mg capsule 100 mg PO TID RF: 0 lisinopril 2.5 mg tablet 2.5 mg PO DAILY RF: 0 glipizide-metformin 5-500 mg tablet 2 tab PO BID RF: 0 Vitamin C 500 mg Tablet 500 mg PO BID 30 Days Qty: 60 RF: 0 cholecalciferol (vitamin D3) 25 mcg (1,000 unit) Tablet 1,000 unit PO DAILY 30 Days Qty: 30 RF: 0 zinc gluconate 50 mg Tablet 50 mg PO DAILY 30 Days Qty: 30 RF: 0 albuterol sulfate 90 mcg/actuation HFA aerosol inhaler 1 inh inhalation Q6H PRN (Reason: shortness of breath or wheezing) Qty: 8.5 RF: 0 aspirin 81 mg tablet,delayed release (DR/EC) 81 mg PO DAILY 30 Days Qty: 30 RF: 0 Discharge Orders: Discharge ED (Routine); Ordered 11/24/20 Ordered By: Axel Adams Referrals: Jessica Pena FNP [Primary Care Provider] - Discharge Diet: Usual diet Discharge Activity: Resume usual activity Patient Instructions: Opioid Safety Activity Restrictions/Additional Instructions: Increase Bumex to 4 mg daily for 5 days. Clindamycin 3 times a day for 10 days. Follow-up with your primary care doctor within the next week return if you have further problems. Coding Level of Care Code ED Pay Station Attendant for Chg Fwd Exam Comprehensive
--- NOTE | 2020-11-24 12:58 | ECG_ITS ---
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 Measurements Intervals [place] Rate: 96 P: -78 WA: 125 QRS: 64 QRSD: 99 T: 62 QT: 326 QTc: 412 Interpretive Statements SINUS RHYTHM Compared to ECG 10/28/2020 13:10:22 No significant changes Electronically Signed On 11-24-2020 19:29:29 CDT by Cl Epps M.D. [id number]
--- NOTE | 2020-11-24 12:58 | XRR_ITS ---
PROCEDURE INFORMATION: Exam: XR Chest Exam date and time: 11/24/2020 12:58 PM Age: 75 years old Clinical indication: Cough and dyspnea; Additional info: Dyspnea/cough TECHNIQUE: Imaging protocol: XR of the chest. Views: 1 view. COMPARISON: CR XR chest 1V portable [id number] 10/30/2020 6:40 AM FINDINGS: Lungs: Unremarkable. No consolidation. Pleural spaces: Unremarkable. No pleural effusion. No pneumothorax. Heart/Mediastinum: Unremarkable. No cardiomegaly. Bones/joints: Negative for acute abnormality. A metallic pin is seen in the right humeral head XR/XR chest 1V portable [id number] IMPRESSION: 1. No acute findings. 2. Metallic pin right humeral head
[2020-11-24 13:00] VITALS: PULSE 100; O2SAT 97
[2020-11-24 13:34] LABS: Basophils % 0.4 %; Eosinophils # 0.1 10^3/uL (0.0-0.8); Eosinophils % 1.2 %; Hematocrit 32.7 % (37.0-47.0); Hemoglobin 10.1 g/dL (11.5-15.3); Lymphocytes # 1.1 10^3/uL (0.8-4.8); Lymphocytes % 21.1 %; Mean Corpuscular HGB Conc 30.9 g/dL (30.0-36.0); Mean Corpuscular Hemoglobin 28.8 pg (28.0-34.0); Mean Corpuscular Volume 93.2 fl (81-99); Mean Platelet Volume 8.9 fL (7.4-10.4); Monocytes # 0.4 10^3/uL (0.2-0.9); Monocytes % 6.9 %; Neutrophils # 3.62 10^3/uL (1.8-7.7); Neutrophils % 69.4 %; Nucleated Red Blood Cells % 0 %; Platelet Count 241 10^3/cmm (130-400); Red Blood Count 3.51 10^6/uL (4.1-5.3); Red Cell Distribution Width 15.4 % (12.1-15.1); White Blood Count 5.2 10^3/uL (4.0-10.0)
[2020-11-24 13:52] LABS: Lactic Sepsis W/Reflex 0.8 mmol/L (0.5-2.2)
[2020-11-24 14:00] VITALS: BP 164/101; PULSE 90; RESP 18; O2SAT 100
[2020-11-24 14:01] LABS: Alanine Aminotransferase 9 U/L (0-33); Albumin Level 3.1 g/dL (3.5-5.2); Alkaline Phosphatase 77 IU/L (35-105); Anion Gap 12.9 (5-19); Blood Urea Nitrogen 10 mg/dL (8-23); Calcium 8.5 mg/dL (8.5-10.5); Carbon Dioxide 26 mmol/L (22-29); Chloride 97 mmol/L (98-107); Globulin 3.5 g/dL (1.3-4.6); Glucose 126 mg/dL (65-115); NT Pro B Type Natriuretic Pept 1487 pg/mL (0-450); Osmolality Calculated 275 mOsm/kg (285-295); Potassium 3.9 mmol/L (3.5-5.1); Sodium 132 mmol/L (136-145); Total Bilirubin 0.5 mg/dL (0.15-1.2); Total Protein 6.6 g/dL (6.6-8.7)
[2020-11-24 14:09] LABS: Aspartate Amino Transferase 10 U/L (0-32)
[2020-11-24 14:12] LABS: Add Urine Microscopic? NO; Charge for UA Resulting for Rev
[2020-11-24 14:24] LABS: Blood Urine Neg (Negative); Glucose Urine UA Norm (Normal); Ketones Urine Negative (Negative); Nitrate Urine Negative (Negative); Protein Urine Neg (Negative); Specific Gravity, Urine 1.005 (1.005-1.030); Urine Appearance Clear (CLEAR); Urine Color Yellow (Yellow); pH Urine 7 (5-7)
[2020-11-24 14:25] LABS: Bilirubin Urine Neg (Negative); Leukocyte Esterase Urine Negative (Negative); Urobilinogen Urine Norm (Negative)
[2020-11-24] MEDS: FUROsemide 10 mg/mL SDV 10mL 60 MG IVP (14:49)
[2020-11-24 14:57] LABS: Digoxin < 0.3 ng/mL (0.6-1.2)
[2020-11-24 17:35] VITALS: BP 164/101; PULSE 90; RESP 18; O2SAT 100
--- NOTE | 2020-11-25 23:52 | PC.NURSE ---
received notification of positive blood culture from lab. Notified Dr Aguirre, no new orders given.
== END 2020-11-24 17:36 | disposition home or self-care (01) ==
PROVIDERS: Emergency Provider Family Medicine; PCP Nurse Practitioner Family
DX: L03.115 Cellulitis of right lower limb (principal); I87.2 Venous insufficiency (chronic) (peripheral); Z79.82 Long term (current) use of aspirin; Z79.84 Long term (current) use of oral hypoglycemic drugs; E11.9 Type 2 diabetes mellitus without complications; I11.0 Hypertensive heart disease with heart failure; I50.9 Heart failure, unspecified; Z77.22 Contact with and (suspected) exposure to environmental tobacco smoke (acute) (chronic)
CPT/HCPCS: 71045; 80053; 80162; 81003; 83605; 83880; 85025; 87040; 87205; 93005; 96374; 99284; J1940

== ENCOUNTER 2020-11-29 21:08 | Emergency (ER) | payer MEDICARE, MEDICAID, SELFPAY ==
[2020-11-29 21:11] VITALS: PULSE 120; RESP 18; TEMP 37; O2SAT 100; BMI 46.0
[2020-11-29 21:26] VITALS: BP 127/49; PULSE 106; RESP 18; TEMP 36.4; O2SAT 97
--- NOTE | 2020-11-29 21:37 | ED_ITS ---
HPI - General Adult General: Chief complaint: General Medical Stated complaint: DIFFICULTY BREATHING/ EDEMA Time Seen by Provider: 11/29/20 21:23 History of Present Illness: HPI narrative: 75-year-old lady with a history of atrial fibrillation and CHF. She presents with red swollen and painful legs bilaterally for several days. She was seen in her primary care office, and the skin was marked with a pen on 11/26. Her legs are now weeping. She is a bit more short of breath than usual she was placed on antibiotics. Associated symptoms: Reports dyspnea; Deny chest pain, headache(s) or vomiting Review of Systems Const: Denies: fever(s) or chills Eyes: Denies: change in vision Card: Reports: edema and swelling of feet/ankles; Denies: chest pain Resp: Reports: dyspnea, productive cough and wheezing GI: Denies: abdominal pain or vomiting Neuro: Denies: headache(s) PFS ED PFSH: Medical History Asthma Diabetes mellitus type 2, noninsulin dependent Encounter for monitoring digoxin therapy GERD (gastroesophageal reflux disease) Gout Hard of hearing Hypertension Obstructive sleep apnea Wears CPAP PVCs (premature ventricular contractions) Surgical History History of bladder surgery History of cataract surgery History of cholecystectomy History of hysterectomy History of partial thyroidectomy Family History Other CAD (coronary artery disease) Hypertension Social History Smoking and tobacco status: never smoked Second hand smoke exposure: Yes Smoking risk assessment/counseling performed?: Yes Alcohol intake: never Desire information about alcohol rehabilitation?: No Counseling given: No Adopted: No Caregiver/support person: Yes Lives independently: Yes Household members: none Housing: Other Details: Senior Housing Marital status: Single Current occupational status: disabled Pets and animals: No History of recent travel: No Current gender identity: Female Physical Exam Const: COMMON NORMALS: no acute distress, patient oriented x3 and alert HENMT: COMMON NORMALS: normocephalic HEAD & SCALP: normocephalic Eye: COMMON NORMALS: Equal, round and reactive pupils present and EOMs intact bilaterally PUPIL: Yes Equal, round and reactive pupils present Chest: COMMONS NORMALS: normal inspection of the chest Resp: EFFORT & INSPECTION: Yes tachypneic, No respiratory distress and No uses accessory muscles AUSCULTATION: rales and wheezes Cardio: RHYTHM: abnormal rhythm irregularly irregular GI: COMMON NORMALS: Soft to palpation INSPECTION: Yes normal to inspection PALPATION: Yes Soft to palpation and No Tenderness to palpation present (GI) Extremity: GENERAL: Yes edema Neuro: COMMON NORMALS: patient oriented x3 SENSORIUM/ORIENTATION: Yes alert Skin: NARRATIVE SKIN EXAM: Significant lower extremity edema. Beefy erythema to the proximal 3rd of the tibia from the foot bilaterally. On the right, there are bullae, with some cracking and weeping. Course Vital Signs: Vital signs: Vital Signs Temperature 98.3 F 11/30/20 00:55 Pulse Rate 96 11/30/20 00:55 Respiratory Rate 19 H 11/30/20 00:55 Blood Pressure 109/70 11/30/20 00:55 Pulse Oximetry 98 11/30/20 00:55 [facility] - General Adult Lab Data: Labs: Lab Results 11/29/20 11/29/20 11/29/20 Range/Units 21:15 21:15 21:15 WBC 6.0 (4.0-10.0) 10^3/ uL RBC 3.40 L (4.1-5.3) 10^6/u L Hgb 9.7 L (11.5-15.3) g/dL Hct 31.4 L (37.0-47.0) % MCV 92.4 (81-99) fl MCH 28.5 (28.0-34.0) pg MCHC 30.9 (30.0-36.0) g/dL RDW 15.4 H (12.1-15.1) % Plt Count 348 (130-400) 10^3/c mm MPV 9.0 (7.4-10.4) fL Neut % (Auto) 70.2 % Lymph % (Auto) 21.3 % [place] % (Auto) 5.8 % Eos % (Auto) 2.0 % Baso % (Auto) 0.2 % Neut # (Auto) 4.22 (1.8-7.7) 10^3/u L Lymph # (Auto) 1.3 (0.8-4.8) 10^3/u L [place] # (Auto) 0.4 (0.2-0.9) 10^3/u L Eos # (Auto) 0.1 (0.0-0.8) 10^3/u L Baso # (Auto) 0.0 (0.0-0.1) 10^3/u L Nucleated RBC % (a uto) 0 % Nucleated RBCs # 0.0 /100WBC Sodium 136 (136-145) mmol/L Potassium 5.0 (3.5-5.1) mmol/L Chloride 96 L (98-107) mmol/L Carbon Dioxide 28 (22-29) mmol/L Anion Gap 17.0 (5-19) BUN 14 (8-23) mg/dL Creatinine 0.6 (0.5-0.9) mg/dL GFR Calculation Not Reportable Glucose 154 H (65-115) mg/dL Calculated Osmolal ity 286 (285-295) mOsm/k g Lactate (0.5-2.2) mmol/L Calcium 7.5 L (8.5-10.5) mg/dL Total Bilirubin 0.3 (0.15-1.2) mg/dL AST 17 (0-32) U/L ALT 14 (0-33) U/L Alkaline Phosphata se 68 (35-105) IU/L Troponin T Baselin e 18 H (0-10) ng/L Troponin T 120 [place] (0-10) ng/L Delta Troponin T (0-10) ABS# C-Reactive Protein 63.9 H (0.0-4.9) mg/L NT-Pro-B Natriuret Pep 802 H (0-450) pg/mL Total Protein 5.7 L (6.6-8.7) g/dL Albumin 2.9 L (3.5-5.2) g/dL Globulin 2.8 (1.3-4.6) g/dL Procalcitonin 0.07 (0-0.5) ng/mL Urine Color (Yellow) Urine Appearance (CLEAR) Urine pH (5-7) Ur Specific Gravit y (1.005-1.030) Urine Protein (Negative) Urine Glucose (UA) (Normal) Urine Ketones (Negative) Urine Blood (Negative) Urine Nitrate (Negative) Urine Bilirubin (Negative) Urine Urobilinogen (Negative) mg/dL Ur Leukocyte Carmita ase (Negative) Digoxin 0.3 L (0.6-1.2) ng/mL 11/29/20 11/29/20 11/29/20 Range/Units 22:18 23:04 23:21 WBC (4.0-10.0) 10^3/ uL RBC (4.1-5.3) 10^6/u L Hgb (11.5-15.3) g/dL Hct (37.0-47.0) % MCV (81-99) fl MCH (28.0-34.0) pg MCHC (30.0-36.0) g/dL RDW (12.1-15.1) % Plt Count (130-400) 10^3/c mm MPV (7.4-10.4) fL Neut % (Auto) % Lymph % (Auto) % [place] % (Auto) % Eos % (Auto) % Baso % (Auto) % Neut # (Auto) (1.8-7.7) 10^3/u L Lymph # (Auto) (0.8-4.8) 10^3/u L [place] # (Auto) (0.2-0.9) 10^3/u L Eos # (Auto) (0.0-0.8) 10^3/u L Baso # (Auto) (0.0-0.1) 10^3/u L Nucleated RBC % (a uto) % Nucleated RBCs # /100WBC Sodium (136-145) mmol/L Potassium (3.5-5.1) mmol/L Chloride (98-107) mmol/L Carbon Dioxide (22-29) mmol/L Anion Gap (5-19) BUN (8-23) mg/dL Creatinine (0.5-0.9) mg/dL GFR Calculation Glucose (65-115) mg/dL Calculated Osmolal ity (285-295) mOsm/k g Lactate 1.5 (0.5-2.2) mmol/L Calcium (8.5-10.5) mg/dL Total Bilirubin (0.15-1.2) mg/dL AST (0-32) U/L ALT (0-33) U/L Alkaline Phosphata se (35-105) IU/L Troponin T Baselin e (0-10) ng/L Troponin T 120 Min [place] 18.59 H (0-10) ng/L Delta Troponin T 0.59 (0-10) ABS# C-Reactive Protein (0.0-4.9) mg/L NT-Pro-B Natriuret Pep (0-450) pg/mL Total Protein (6.6-8.7) g/dL Albumin (3.5-5.2) g/dL Globulin (1.3-4.6) g/dL Procalcitonin (0-0.5) ng/mL Urine Color Yellow (Yellow) Urine Appearance Clear (CLEAR) Urine pH 6 (5-7) Ur Specific Gravit y 1.015 (1.005-1.030) Urine Protein Neg (Negative) Urine Glucose (UA) Norm (Normal) Urine Ketones Negative (Negative) Urine Blood Neg (Negative) Urine Nitrate Negative (Negative) Urine Bilirubin 1+ H (Negative) Urine Urobilinogen 1 H (Negative) mg/dL Ur Leukocyte Carmita ase Negative (Negative) Digoxin (0.6-1.2) ng/mL Discharge Plan Discharge Patient Disposition: Home Clinical Impression: Cellulitis of left lower extremity, Chronic venous insufficiency Condition: Stable Prescriptions: New furosemide 40 mg tablet 40 mg PO DAILY Qty: 3 RF: 0 No Action magnesium 200 mg tablet 200 mg PO DAILY RF: 0 digoxin [Digox] 125 mcg (0.125 mg) tablet 125 mcg PO DAILY MDD SEE PHARMACY COMMENT-ON HOLD RF: 0 Hold Instructions: Resume on 08/27/19. Discuss with PCP before resuming oxymetazoline [Vicks Sinex 12-Hour] 0.05 % spray,non-aerosol 2 spray intranasal Q12H PRN (Reason: Nasal Congestion) RF: 0 levalbuterol tartrate [Xopenex HFA] 45 mcg/actuation HFA aerosol inhaler 2 inh inhalation Q6H Qty: 15 RF: 3 budesonide-formoterol [Symbicort] 80-4.5 mcg/actuation HFA aerosol inhaler 2 puff inhalation BID Qty: 10.2 RF: 3 potassium chloride 10 mEq tablet,ER particles/crystals 10 meq PO DAILY Qty: 90 RF: 0 omeprazole 20 mg capsule,delayed release(DR/EC) See Rx Instructions .ROUTE .COMPLEX Qty: 180 RF: 0 cetirizine 10 mg capsule 10 mg PO DAILY Qty: 90 RF: 0 pioglitazone 15 mg Tablet 15 mg PO DAILY RF: 0 Hold Instructions: Resume on 08/27/19. Discuss with PCP before resuming citalopram 20 mg tablet 20 mg PO DAILY RF: 0 diltiazem HCl 90 mg capsule,extended release 12 hr 90 mg PO BID RF: 0 gabapentin 100 mg capsule 100 mg PO TID RF: 0 lisinopril 2.5 mg tablet 2.5 mg PO DAILY RF: 0 glipizide-metformin 5-500 mg tablet 2 tab PO BID RF: 0 Vitamin C 500 mg Tablet 500 mg PO BID 30 Days Qty: 60 RF: 0 cholecalciferol (vitamin D3) 25 mcg (1,000 unit) Tablet 1,000 unit PO DAILY 30 Days Qty: 30 RF: 0 zinc gluconate 50 mg Tablet 50 mg PO DAILY 30 Days Qty: 30 RF: 0 albuterol sulfate 90 mcg/actuation HFA aerosol inhaler 1 inh inhalation Q6H PRN (Reason: shortness of breath or wheezing) Qty: 8.5 RF: 0 aspirin 81 mg tablet,delayed release (DR/EC) 81 mg PO DAILY 30 Days Qty: 30 RF: 0 clindamycin HCl 300 mg capsule 300 mg PO Q8H 10 Days Qty: 30 RF: 0 bumetanide 2 mg tablet 4 mg PO DAILY Qty: 0 RF: 0 Discharge Orders: Discharge ED (Routine); Ordered 11/30/20 Ordered By: Amadeo Flores Referrals: Jessica Pena FNP [Primary Care Provider] - Discharge Diet: Advance as tolerated Discharge Activity: Resume usual activity Patient Instructions: Cellulitis (ED), Peripheral Vascular Disorders (ED), Leg Edema (ED) Activity Restrictions/Additional Instructions: Continue the antibiotic you were prescribed 3 days ago for the cellulitis of your legs. Use the water pill prescribed tonight on top of the water pill you normally take for the swelling for the next 3 days. Keep your legs wrapped with the [place] wrap you were given, and elevated to the level of your hips at least. If you are sitting, do not sit with your legs down. Return for worsening redness, weeping, streaking redness, fever, pain despite treatment. Return also for worsening shortness of breath despite treatment, S discomfort, any other concerning symptoms. A home health consult has been placed, to help you with wound care for your legs. Coding Level of Care Code ED Upper Lining Cementer for Chg Fwd Exam Comprehensive
--- NOTE | 2020-11-29 21:45 | XRR_ITS ---
PROCEDURE INFORMATION: Exam: XR Chest Exam date and time: 11/29/2020 9:45 PM Age: 75 years old Clinical indication: Dyspnea; Additional info: SOB TECHNIQUE: Imaging protocol: XR of the chest. Views: 1 view. Total images: 1 COMPARISON: CR XR chest 1V portable [id number] 11/24/2020 12:56 PM FINDINGS: Lungs: No visible active interstitial or alveolar airspace disease. Pleural spaces: Unremarkable. No pleural effusion. No pneumothorax. Heart/Mediastinum: Cardiac structures and configuration with arteriosclerosis. Bones/joints: Right shoulder tendon anchor. XR/XR chest 1V portable [id number] IMPRESSION: Nonacute.
--- NOTE | 2020-11-29 21:47 | ECG_ITS ---
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
[2020-11-29 22:08] LABS: Basophils % 0.2 %; Eosinophils # 0.1 10^3/uL (0.0-0.8); Hematocrit 31.4 % (37.0-47.0); Hemoglobin 9.7 g/dL (11.5-15.3); Lymphocytes # 1.3 10^3/uL (0.8-4.8); Lymphocytes % 21.3 %; Mean Corpuscular HGB Conc 30.9 g/dL (30.0-36.0); Mean Corpuscular Hemoglobin 28.5 pg (28.0-34.0); Mean Corpuscular Volume 92.4 fl (81-99); Monocytes # 0.4 10^3/uL (0.2-0.9); Monocytes % 5.8 %; Neutrophils # 4.22 10^3/uL (1.8-7.7); Neutrophils % 70.2 %; Nucleated Red Blood Cells % 0 %; Platelet Count 348 10^3/cmm (130-400); Red Cell Distribution Width 15.4 % (12.1-15.1)
[2020-11-29 22:20] VITALS: BP 109/70; PULSE 96; RESP 19; TEMP 36.8; O2SAT 98
[2020-11-29 22:24] LABS: Troponin(5th) Baseline 18 ng/L (0-10)
[2020-11-29 22:32] LABS: NT Pro B Type Natriuretic Pept 802 pg/mL (0-450); Procalcitonin 0.07 ng/mL (0-0.5)
[2020-11-29 22:43] LABS: Alanine Aminotransferase 14 U/L (0-33); Albumin Level 2.9 g/dL (3.5-5.2); Alkaline Phosphatase 68 IU/L (35-105); Aspartate Amino Transferase 17 U/L (0-32); Blood Urea Nitrogen 14 mg/dL (8-23); C Reactive Protein 63.9 mg/L (0.0-4.9); Calcium 7.5 mg/dL (8.5-10.5); Carbon Dioxide 28 mmol/L (22-29); Chloride 96 mmol/L (98-107); Globulin 2.8 g/dL (1.3-4.6); Glucose 154 mg/dL (65-115); Osmolality Calculated 286 mOsm/kg (285-295); Sodium 136 mmol/L (136-145); Total Bilirubin 0.3 mg/dL (0.15-1.2); Total Protein 5.7 g/dL (6.6-8.7)
[2020-11-29] MEDS: FUROsemide 10 mg/mL SDV 10mL 80 MG IVP (22:44)
[2020-11-29] MEDS: vancomycin 1,000 MG in sodium chloride 0.9% 250 ML 250 MG IV (22:44)
[2020-11-29 22:45] LABS: Lactate (Lactic Acid level) 1.5 mmol/L (0.5-2.2)
[2020-11-29 23:20] LABS: Digoxin 0.3 ng/mL (0.6-1.2)
[2020-11-29 23:34] LABS: Add Urine Microscopic? NO; Charge for UA Resulting for Rev
[2020-11-29 23:39] LABS: Bilirubin Urine 1+ (Negative); Blood Urine Neg (Negative); Glucose Urine UA Norm (Normal); Ketones Urine Negative (Negative); Leukocyte Esterase Urine Negative (Negative); Nitrate Urine Negative (Negative); Protein Urine Neg (Negative); Specific Gravity, Urine 1.015 (1.005-1.030); Urine Appearance Clear (CLEAR); Urine Color Yellow (Yellow); Urobilinogen Urine 1 mg/dL (Negative); pH Urine 6 (5-7)
--- NOTE | 2020-11-29 23:47 | ECG_ITS ---
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
[2020-11-29 23:57] LABS: Troponin 5 2HR 18.59 ng/L (0-10); Troponin 5 2HR Delta 0.59 ABS# (0-10)
[2020-11-30 00:55] VITALS: BP 109/70; PULSE 96; RESP 19; TEMP 36.8; O2SAT 98
== END 2020-11-30 00:56 | disposition home or self-care (01) ==
PROVIDERS: Emergency Provider Emergency Medicine; PCP Nurse Practitioner Family
DX: L03.116 Cellulitis of left lower limb (principal); I87.2 Venous insufficiency (chronic) (peripheral); Z79.82 Long term (current) use of aspirin; Z79.84 Long term (current) use of oral hypoglycemic drugs; E11.9 Type 2 diabetes mellitus without complications; I10 Essential (primary) hypertension; Z77.22 Contact with and (suspected) exposure to environmental tobacco smoke (acute) (chronic)
CPT/HCPCS: 71045; 80053; 80162; 81003; 83605; 83880; 84145; 84484; 85025; 86140; 87040; 93005; 96365; 96375; 99284; J1940; J3370; J7050

== ENCOUNTER 2020-12-11 13:16 | Outpatient (CLI) | payer MEDICARE, MEDICAID, SELFPAY | END 2020-12-11 13:17 | disposition home or self-care (01) | LOC: WOUND 13:17 | PROVIDERS: PCP Nurse Practitioner Family; Visit Provider Emergency Medicine | DX: E11.9 Type 2 diabetes mellitus without complications (principal); M79.89 Other specified soft tissue disorders; Z87.891 Personal history of nicotine dependence | CPT/HCPCS: G0463 ==

== ENCOUNTER → 2021-01-13 09:41 | Outpatient (BNVA) | payer MEDICARE, MEDICAID, SELFPAY | PROVIDERS: PCP Nurse Practitioner Family; Visit Provider Nurse Practitioner Family | DX: D64.9 Anemia, unspecified (principal); E11.9 Type 2 diabetes mellitus without complications | CPT/HCPCS: 83036; 85007; 85027 ==

== ENCOUNTER 2021-01-27 13:17 | Outpatient (CLI) | payer MEDICARE, MEDICAID, SELFPAY ==
--- NOTE | 2021-01-27 14:15 | USCV_ITS ---
Marissa Hyde Age: 75 Gender: F : 1945 Exam Date: 01/27/2021 14:06 Ordering Phys: Ruby Solorzano DO Technologist: Jojo Sands Exam Location: [facility] Indication: HISTORY: Lower extremity swelling. Lower extremity pain. PROCEDURES: Bilateral duplex Venous Insufficiency study of the Deep and Superficial systems was carried out according to normal protocol with the patient in supine positon for deep system and dependent position for the superficial system. FINDINGS: VERY TDS THERE APPEARS TO BE REFLUX IN BILATERAL SSV MID. ?CHRONIC LT SSV THROMBUS/WALL CALCIFICATION The veins were found to be easily compressible with spontaneous blood flow. Non pulsatile flow pattern. CONCLUSIONS 1. No evidence of DVT in the above-mentioned identifiable veins. 2. Significant venous reflux of greater than 500 ms were noted at the mid segment of the small saphenous veins bilaterally(reflux time was 0.694 and 0.622 ms). The venous segments were measuring 0.29 and 0.22 cm in diameter. 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 These venous segments were found to be less than 1 cm deep from the surface. Dr Waqas Fenton MD [facility] (Electronically Signed) Final Date: 28 January 2021 09:51 S
== END 2021-01-27 13:18 | disposition home or self-care (01) ==
LOC: RAD 13:19
PROVIDERS: PCP Nurse Practitioner Family; Visit Provider Emergency Medicine
DX: M79.89 Other specified soft tissue disorders (principal); M79.604 Pain in right leg; M79.605 Pain in left leg; I87.2 Venous insufficiency (chronic) (peripheral)
CPT/HCPCS: 93970

== ENCOUNTER → 2021-05-12 11:24 | Outpatient (BNVA) | payer MEDICARE, MEDICAID, SELFPAY | PROVIDERS: PCP Nurse Practitioner Family; Visit Provider Nurse Practitioner Family | DX: I50.9 Heart failure, unspecified (principal); E11.9 Type 2 diabetes mellitus without complications; Z51.81 Encounter for therapeutic drug level monitoring; Z79.899 Other long term (current) drug therapy; D64.9 Anemia, unspecified | CPT/HCPCS: 80053; 80162; 83036; 83880; 85025 ==

== ENCOUNTER → 2021-05-19 09:43 | Outpatient (BNVA) | payer MEDICARE, MEDICAID, SELFPAY | PROVIDERS: PCP Nurse Practitioner Family; Visit Provider Nurse Practitioner Family | DX: Z51.81 Encounter for therapeutic drug level monitoring (principal); Z79.899 Other long term (current) drug therapy | CPT/HCPCS: 80162 ==

== ENCOUNTER → 2021-11-04 11:08 | Outpatient (BNVA) | payer MEDICARE, MEDICAID, SELFPAY | PROVIDERS: PCP Nurse Practitioner Family; Visit Provider Nurse Practitioner Family | DX: I10 Essential (primary) hypertension (principal); E11.9 Type 2 diabetes mellitus without complications; I87.2 Venous insufficiency (chronic) (peripheral) | CPT/HCPCS: 80053; 80061; 82043; 83036 ==

== ENCOUNTER → 2022-01-11 10:02 | Outpatient (BNVA) | payer MEDICARE, MEDICAID, SELFPAY | PROVIDERS: PCP Nurse Practitioner Family; Visit Provider Nurse Practitioner Family | DX: I10 Essential (primary) hypertension (principal); E11.649 Type 2 diabetes mellitus with hypoglycemia without coma; J06.9 Acute upper respiratory infection, unspecified; E11.9 Type 2 diabetes mellitus without complications; E78.5 Hyperlipidemia, unspecified; J45.909 Unspecified asthma, uncomplicated | CPT/HCPCS: 80053; 80061; 83036 ==

== ENCOUNTER → 2022-03-05 09:22 | Outpatient (BNVA) | payer MEDICARE, MEDICAID, SELFPAY | PROVIDERS: PCP Nurse Practitioner Family; Visit Provider Nurse Practitioner Family | DX: N39.0 Urinary tract infection, site not specified (principal); R31.9 Hematuria, unspecified | CPT/HCPCS: 81000; 87077; 87086; 87184 ==

== ENCOUNTER → 2022-10-15 13:21 | Outpatient (BNVA) | payer MEDICARE, MEDICAID, SELFPAY | PROVIDERS: PCP Nurse Practitioner Family; Visit Provider Nurse Practitioner Family | DX: N39.0 Urinary tract infection, site not specified (principal); I10 Essential (primary) hypertension; E11.9 Type 2 diabetes mellitus without complications; E78.5 Hyperlipidemia, unspecified; M50.10 Cervical disc disorder with radiculopathy, unspecified cervical region | CPT/HCPCS: 81000 ==

== ENCOUNTER → 2022-12-16 10:05 | Outpatient (BNVA) | payer MEDICARE, MEDICAID, SELFPAY | PROVIDERS: PCP Family Medicine; Visit Provider Dermatology | DX: S00.81XA Abrasion of other part of head, initial encounter (principal); L82.1 Other seborrheic keratosis; D48.5 Neoplasm of uncertain behavior of skin; L57.8 Other skin changes due to chronic exposure to nonionizing radiation; X58.XXXA Exposure to other specified factors, initial encounter; Y93.9 Activity, unspecified; Y92.9 Unspecified place or not applicable; Y99.9 Unspecified external cause status | CPT/HCPCS: 11102; 99203 ==

== ENCOUNTER → 2023-01-03 09:22 | Outpatient (BNVA) | payer MEDICARE, MEDICAID, SELFPAY | PROVIDERS: PCP Family Medicine; Visit Provider Dermatology | DX: C44.329 Squamous cell carcinoma of skin of other parts of face (principal); L21.8 Other seborrheic dermatitis | CPT/HCPCS: 12053; 17311; 99214 ==

== ENCOUNTER 2023-01-27 11:34 | Outpatient (CLI) | payer MEDICARE, MEDICAID, SELFPAY ==
--- NOTE | 2023-01-27 | CT_ITS ---
WS: [id number] CT HEAD TECHNIQUE: Noncontrast and contrast-enhanced CT of the head. 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 FINDINGS: Beam-hardening artifact from RIGHT implanted hearing aid. No evidence intracranial hemorrhage or mass effect. Ventricular system basal cisterns are patent. Mil d small vessel changes. Moderate parenchymal volume loss. No abnormal intracranial enhancement. No enhancing intracranial metastatic lesions. Normal visualized dural venous sinuses. Normal posterior nasopharynx. Small amount of fluid at the sphenoid sinus. Mas toid air cells are well aerated. IMPRESSION: 1. No evidence of enhancing intracranial metastatic disease. 2. Mild small vessel changes with moderate parenchymal volume loss. 3. Sphenoid sinusitis.
--- NOTE | 2023-01-27 11:50 | CT_ITS ---
WS: [id number] CT NECK TECHNIQUE: Contrast-enhanced CT of the neck with coronal and sagittal reformatted images. CLINICAL INFORMATION: Squamous cell carcinoma of skin, unspecified COMPARISON: 2013 DLP: 2226.[address] scans at [facility] use at least one of these dose optimization techniques: automated e xposure control; mA and/or kV adjustment per patient size (includes targeted exams where dose is matc hed to clinical indication); or iterative reconstruction. FINDINGS: Soft tissue induration overlying the RIGHT cheek likely due to patient's known squamous cell carcinom a. Subcutaneous soft tissue nodularity measures 14 mm. This extends to the skin. Nodule abuts the und erlying type I SMAS laterally. Partially visualized intracranial contents are normal. Normal posterior nasopharynx. Normal paraphary ngeal fat. Sphenoid sinusitis. Mastoid air cells are well aerated. Parotid glands are normal. Anterior accessory parotid tissue bilaterally. Submandibular glands are no rmal. Tongue base is normal in appearance. No evidence of supraglottic or glottic mass. Normal subglo ttic airway. Lung apices are well aerated. Prior postoperative changes LEFT thyroidectomy. A few small nodules in the RIGHT thyroid. No cervical lymphadenopathy. Mild spondylitic changes cervical spine. Calcified carotid bulb atheromatous disease with mild to moderate RIGHT and no significant LEFT ICA s tenosis. This can be further evaluated with carotid ultrasound or CTA. Retropharyngeal course to both cervical ICAs. IMPRESSION: 1. No evidence of metastatic disease in the neck. 2. 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 3. Postoperative changes LEFT thyroidectomy. A few small nodules in the RIGHT thyroid. ] This could be followed up with thyroid ultrasound. 4. No cervical lymphadenopathy. 5. Calcified carotid bulb atheromatous disease with mild to moderate RIGHT and no significant LEFT I CA stenosis. This can be further evaluated with carotid ultrasound or CTA. Retropharyngeal course to both cervical ICAs.
[2023-01-27] MEDS: iohexol 350 mg/mL 500 mL Btl (per mL) IV (12:11)
[2023-01-27 12:36] LABS: Blood Urea Nitrogen 18 mg/dL (8-23)
== END 2023-01-27 11:35 | disposition home or self-care (01) ==
LOC: RAD 11:34
PROVIDERS: PCP Family Medicine; Visit Provider Dermatology
DX: C44.329 Squamous cell carcinoma of skin of other parts of face (principal); E89.0 Postprocedural hypothyroidism; I65.21 Occlusion and stenosis of right carotid artery; J32.3 Chronic sphenoidal sinusitis
CPT/HCPCS: 70470; 70491; 82565; 84520; Q9967

== ENCOUNTER → 2024-05-11 12:02 | Outpatient (BNVA) | payer MEDICARE, MEDICAID, SELFPAY | PROVIDERS: PCP Family Medicine; Visit Provider Nurse Practitioner Family | DX: N39.0 Urinary tract infection, site not specified (principal) | CPT/HCPCS: 81000; 87086 ==

== ENCOUNTER → 2024-06-21 14:08 | Outpatient (BNVA) | payer MEDICARE, MEDICAID, SELFPAY | PROVIDERS: PCP Family Medicine; Visit Provider Nurse Practitioner Family | DX: N30.00 Acute cystitis without hematuria (principal); N39.0 Urinary tract infection, site not specified | CPT/HCPCS: 81000; 87086 ==

== ENCOUNTER → 2024-08-07 09:40 | Outpatient (BNVA) | payer MEDICARE, MEDICAID, SELFPAY | PROVIDERS: PCP Family Medicine; Visit Provider Nurse Practitioner Family | DX: N39.0 Urinary tract infection, site not specified (principal); N30.00 Acute cystitis without hematuria | CPT/HCPCS: 81000; 87086 ==

== ENCOUNTER 2024-08-14 21:00 | Inpatient (IN) | payer MEDICARE, MEDICAID, SELFPAY ==
--- NOTE | 2024-08-14 21:00 | XRR_ITS ---
PROCEDURE INFORMATION: Exam: XR Chest Exam date and time: 08/14/2024 9:07 PM Age: 78 years old Clinical indication: Shortness of breath; Additional info: SOB TECHNIQUE: Imaging protocol: Radiologic exam of the chest. Views: 1 view. COMPARISON: CR XR chest 1V portable [id number] 11/29/2020 9:54 PM FINDINGS: Lungs: No focal consolidation. Pleural spaces: Unremarkable. No pleural effusion. No pneumothorax. Heart/Mediastinum: Cardiomediastinal silhouette is stable. Prominent pulmonary vasculature. Bones/joints: Unremarkable. XR/XR chest 1V portable [id number] IMPRESSION: Mild pulmonary vascular distension, which may represent changes of mild volume overload. No focal consolidation.
--- NOTE | 2024-08-14 21:00 | ECG_ITS ---
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 Measurements Intervals [place] Rate: 153 P: 0 [place]: 0 QRS: 73 QRSD: 93 T: 31 QT: 274 QTc: 438 Interpretive Statements ATRIAL FIBRILLATION WITH RAPID VENTRICULAR RESPONSE CRITICAL TEST RESULT Compared to ECG 11/29/2020 23:39:33 Sinus rhythm no longer present Electronically Signed On 08-16-2024 18:13:35 CDT by Waqas Fenton M.D. [id number] [id number]
[2024-08-14 21:01] VITALS: BP 155/116; PULSE 139; RESP 22; TEMP 36.6; O2SAT 95; BMI 35.4
--- NOTE | 2024-08-14 21:06 | W.ED.SOB ---
HPI - SOB/Dyspnea General: Chief Complaint: Shortness of Breath/Dyspnea Stated Complaint: sob Time Seen by Provider: 08/14/24 21:01 Source: patient and EMS Mode of arrival: EMS Limitations: no limitations History of Present Illness: HPI Narrative: 78-year-old female has a history of congestive heart failure along with A-fib states that she been having increasing shortness of breath lower extremity swelling. Patient called EMS she was in A-fib with RVR they have given her 10 of Cardizem patient is not a very good historian she states she has not been taking her meds. She is on oxygen Associated symptoms: Deny abdominal pain, chest pain, fever(s), nausea or vomiting Related Data Home Medications ?Medication ?Instructions ?Recorded ?Confirmed oxymetazoline 0.05 % nasal spray 2 spray intranasal Q12H PRN Nasal 04/21/20 08/07/24 (Vicks Sinex 12-Hour) Congestion aspirin 81 mg tablet,delayed 81 mg PO DAILY 11/04/21 08/07/24 release (Adult Aspirin Regimen) Previous Rx's ?Medication ?Instructions ?Recorded budesonide-formoterol HFA 80 2 puff inhalation BID #10.2 grams 04/21/20 mcg-4.5 mcg/actuation aerosol inhaler (Symbicort) levalbuterol tartrate 45 2 inh inhalation Q6H #15 grams 04/21/20 mcg/actuation aerosol inhaler (Xopenex HFA) bumetanide 2 mg tablet 2 mg PO DAILY #14 tabs 06/22/21 cetirizine 10 mg tablet See Rx Instructions .Route 01/14/22 .COMPLEX #90 tabs citalopram 20 mg tablet See Rx Instructions .Route 01/14/22 .COMPLEX #90 tabs diltiazem HCl 90 mg 90 mg PO BID #180 caps 01/14/22 capsule,extended release 12 hr gabapentin 100 mg capsule See Rx Instructions .Route 01/14/22 .COMPLEX #90 caps glipizide 5 mg-metformin 500 mg 2 tab PO BID #360 tabs 01/14/22 tablet lisinopril 2.5 mg tablet See Rx Instructions .Route 01/14/22 .COMPLEX #90 tabs omeprazole 20 mg capsule,delayed See Rx Instructions .Route 01/14/22 release .COMPLEX #180 caps potassium chloride 10 mEq 10 meq PO DAILY #90 tabs 10/20/22 tablet,extended release(part/cryst) nebulizer #1 ea 01/20/22 albuterol sulfate 90 mcg/actuation 1 inh inhalation Q6H PRN shortness 01/28/22 aerosol inhaler of breath or wheezing #8.5 grams blood sugar diagnostic (Blood #50 ea 10/15/22 Glucose Test strips) blood-glucose meter (Blood Glucose #1 ea 10/15/22 Monitoring kit) albuterol sulfate 2.5 mg/3 mL See Rx Instructions .Route 11/22/22 (0.083 %) solution for nebulization .COMPLEX #120 ea cefdinir 300 mg capsule 300 mg PO Q12H #14 caps 08/09/24 Allergies Allergy/AdvReac Type Severity Reaction Status Date / Time adhesive tape Allergy Unknown Verified 08/14/24 21:06 levofloxacin (From Levaquin) Allergy Unknown Verified 08/14/24 21:06 morphine Allergy Unknown Verified 08/14/24 21:06 nitrofurantoin (From Allergy Unknown Verified 08/14/24 21:06 Macrobid) oxytetracycline (From Allergy Unknown Verified 08/14/24 21:06 Terramycin with Polymyxin B) Penicillins Allergy Unknown Verified 08/14/24 21:06 polymyxin B (From Terramycin Allergy Unknown Verified 08/14/24 21:06 with Polymyxin B) Sulfa (Sulfonamide Allergy Unknown Verified 08/14/24 21:06 Antibiotics) Review of Systems Const: Denies: fever(s), chills, body aches or change in appetite ENMT: Denies: throat pain or dental pain Card: Denies: chest pain Resp: Reports: dyspnea GI: Denies: abdominal pain, nausea, vomiting or diarrhea Musc: Reports: extremity swelling; Denies: neck pain or back pain Skin/Breast: Denies: rash Neuro: Denies: headache(s) PFSH ED PFSH: Medical History PVCs (premature ventricular contractions) Encounter for monitoring digoxin therapy Obstructive sleep apnea Wears CPAP Hard of hearing GERD (gastroesophageal reflux disease) Gout Asthma Hypertension Diabetes mellitus type 2, noninsulin dependent Surgical History History of cataract surgery History of bladder surgery History of hysterectomy History of cholecystectomy History of partial thyroidectomy Family History Other CAD (coronary artery disease) Hypertension Social History Smoking and tobacco/nicotine status: never used tobacco/nicotine Second hand smoke exposure: Yes Alcohol intake: never Substance/Drug Use: never Adopted: No Caregiver/support person: Yes Lives independently: Yes Household members: none Housing: Other Details: Senior Housing Marital status: Single Current occupational status: disabled Pets and animals: No Do you think of yourself as: Straight/Heterosexual Current gender identity: Female Physical Exam Const: COMMON NORMALS: no acute distress, patient oriented x3 and healthy appearing HENMT: COMMON NORMALS: normocephalic and atraumatic HEAD & SCALP: normocephalic and atraumatic Eye: COMMON NORMALS: conjunctivae normal CONJUNCTIVA: Yes conjunctivae normal Neck/C-Spine: COMMON NORMALS: full ROM and supple Chest: COMMONS NORMALS: normal inspection of the chest Resp: EFFORT & INSPECTION: Yes respiratory distress AUSCULTATION: rales Cardio: COMMON NORMALS: No murmurs present (Cardio) RATE: tachycardic RHYTHM: abnormal rhythm irregularly irregular GI: COMMON NORMALS: Normal to inspection, nondistended, normoactive bowel sounds present, Soft to palpation, non-tender and no masses PALPATION: Yes Soft to palpation Extremity: COMMON NORMALS: full ROM OTHER: 2+ edema Neuro: COMMON NORMALS: patient oriented x3, moves all extremities and no focal motor deficits Psych: COMMON NORMALS: mental status grossly normal, Normal thought process present and cooperative THOUGHT PROCESS: Normal thought process present Skin: COMMON NORMALS: no rashes or lesions noted and no wounds GENERAL SKIN EXAM: no rashes or lesions noted Course Vital Signs: Vital signs: Vital Signs Temperature 97.9 F 08/14/24 21:01 Pulse Rate 139 H 08/14/24 21:01 Respiratory Rate 22 H 08/14/24 21:01 Blood Pressure 155/116 08/14/24 21:01 Pulse Oximetry 95 08/14/24 21:01 Oxygen Delivery Me thod Room Air 08/14/24 21:01 MDM - SOB/Dyspnea Medical Decision Making Patient presents with A-fib with RVR along with CHF exacerbation she is likely been noncompliant with her meds patient is on a Cardizem drip was given Lasix and spoke to hospitalist will admit. Medical Records I reviewed the patient's medical records. Lab Data I reviewed the patient's lab results. 08/14/24 21:31 08/14/24 21: Labs/Radiology: Radiology Impressions Chest X-Ray 08/14/24 21:00 IMPRESSION: Mild pulmonary vascular distension, which may represent changes of mild volume overload. No focal consolidation. Laboratory Results WBC 8.36 10^3/uL (3.29-11.43) 08/14/24 21: RBC 3.96 10^6/uL (3.85-5.65) 08/14/24: Hgb 11.70 g/dL (11.27-16.99) 08/14/24: Hct 37.1 % (36-47) 08/14/24: MCV 93.7 fl (85-98) 08/14/24: MCH 29.5 pg (27-33) 08/14/24 21: MCHC 31.5 g/dL (30-55) 08/14/24: RDW 13.5 % (12.1-15.1) 08/14/24: Plt Count 295 10^3/cmm (157-399) 08/14/24: MPV 8.7 fL (7.4-10.4) 08/14/24: Neut % (Auto) 73.7 % 08/14/24: Lymph % (Auto) 17.9 % 08/14/24 21: [place] % (Auto) 6.2 % 08/14/24: Eos % (Auto) 1.2 % 08/14/24: Baso % (Auto) 0.4 % 08/14/24: Neut # (Auto) 6.16 10^3/uL (1.8-7.7) 08/14/24: Lymph # (Auto) 1.5 10^3/uL (0.8-4.8) 08/14/24: [place] # (Auto) 0.5 10^3/uL (0.2-0.9) 08/14/24 21: Eos # (Auto) 0.1 10^3/uL (0.0-0.8) 08/14/24 21: Baso # (Auto) 0.0 10^3/uL (0.0-0.1) 08/14/24 21: Nucleated RBC % (auto) 0 % 08/14/24: Nucleated RBCs # 0.0 /100WBC 08/14/24 21: PT 13.70 SECONDS (12.1-14.9) 08/14/24 21: INR 0.98 (0.8-1.2) 08/14/24 21: Sodium 138 mmol/L (136-145) 08/14/24: Potassium 4.8 mmol/L (3.5-5.1) 08/14/24: Chloride 103 mmol/L (98-107) 08/14/24: Carbon Dioxide 24 mmol/L (22-29) 08/14/24: Anion Gap 15.8 (5-19) 08/14/24 21: BUN 20 mg/dL (8-23) 08/14/24 21: Creatinine 0.8 mg/dL (0.5-0.9) 08/14/24 21: GFR Calculation Not Reportable 08/14/24: Glucose 174 mg/dL (65-115) H 08/14/24 21: Calculated Osmolality 293 mOsm/kg (285-295) 08/14/24: Calcium 9.2 mg/dL (8.5-10.5) 08/14/24: Total Bilirubin 0.3 mg/dL (0.15-1.2) 08/14/24 21: AST 17 U/L (0-32) 08/14/24: ALT 26 U/L (0-33) 08/14/24 21: Alkaline Phosphatase 114 U/L (35-105) H 08/14/24 21: NT-Pro-B Natriuret Pep 2974 pg/mL (0-450) H 08/14/24 21: Total Protein 7.4 g/dL (6.6-8.7) 05/20/25 21:31 Albumin 3.7 g/dL (3.5-5.2) 08/14/24 21:31 Globulin 3.7 g/dL (1.3-4.6) 08/14/24 21:31 All radiology interpretation(s) finalized by discharge EKG Data EKG 1: I personally reviewed and interpreted this EKG as follows: EKG Interpretation Date: 08/14/24 EKG interpretation time: 21:04 Interpretation: afib with rvr hr [address] elevation qrs 93 qtc 361 Critical Care Time Critical Care Time: Critical Care Time: Yes Total Critical Care Time: 45 Attestation: The high probability of a clinically significant, sudden or life threatening deterioration of the patient's cv system(s) required my full and direct attention, intervention and personal management. The critical care time is as shown. This time is in addition to time spent performing any reported procedures but includes the following: [x] Data and vital sign review and interpretation [x] Patient assessment, examination and intervention [x] Documentation [x] Medication orders and management Discharge Plan Discharge Patient Disposition: Admitted As Inpatient Clinical Impression: Congestive heart failure, Atrial fibrillation with RVR Condition: Stable Coding Level of Care Code ED Administrative Support Clerk for Zoltan Dickens
[2024-08-14] MEDS: dilTIAZem 100 MG in sodium chloride 0.9% (add-van) 100 ML IV (21:22)
[2024-08-14] MEDS: dilTIAZem 5 mg/mL SDV 5 mL 10 MG IVP (21:31)
[2024-08-14] MEDS: FUROsemide 10 mg/mL SDV 4mL 40 MG IVP (21:31)
[2024-08-14 21:40] LABS: Basophils % 0.4 %; Eosinophils # 0.1 10^3/uL (0.0-0.8); Eosinophils % 1.2 %; Hematocrit 37.1 % (36-47); Lymphocytes # 1.5 10^3/uL (0.8-4.8); Lymphocytes % 17.9 %; Mean Corpuscular HGB Conc 31.5 g/dL (30-55); Mean Corpuscular Hemoglobin 29.5 pg (27-33); Mean Corpuscular Volume 93.7 fl (85-98); Mean Platelet Volume 8.7 fL (7.4-10.4); Monocytes # 0.5 10^3/uL (0.2-0.9); Monocytes % 6.2 %; Neutrophils # 6.16 10^3/uL (1.8-7.7); Neutrophils % 73.7 %; Nucleated Red Blood Cells % 0 %; Platelet Count 295 10^3/cmm (157-399); Red Blood Count 3.96 10^6/uL (3.85-5.65); Red Cell Distribution Width 13.5 % (12.1-15.1); White Blood Count 8.36 10^3/uL (3.29-11.43)
[2024-08-14 22:11] LABS: Alanine Aminotransferase 26 U/L (0-33); Albumin Level 3.7 g/dL (3.5-5.2); Alkaline Phosphatase 114 U/L (35-105); Anion Gap 15.8 (5-19); Aspartate Amino Transferase 17 U/L (0-32); Blood Urea Nitrogen 20 mg/dL (8-23); Calcium 9.2 mg/dL (8.5-10.5); Carbon Dioxide 24 mmol/L (22-29); Chloride 103 mmol/L (98-107); Creatinine Clr Calc Pharmacy 61.9657; Globulin 3.7 g/dL (1.3-4.6); Glucose 174 mg/dL (65-115); NT Pro B Type Natriuretic Pept 2974 pg/mL (0-450); Osmolality Calculated 293 mOsm/kg (285-295); Potassium 4.8 mmol/L (3.5-5.1); Sodium 138 mmol/L (136-145); Total Bilirubin 0.3 mg/dL (0.15-1.2); Total Protein 7.4 g/dL (6.6-8.7)
[2024-08-14 22:18] LABS: INR 0.98 (0.8-1.2)
[2024-08-14 23:39] VITALS: BP 149/95; PULSE 132; RESP 16; O2SAT 96
[2024-08-14 23:41] VITALS: PULSE 127; RESP 17; O2SAT 91
[2024-08-14 23:45] VITALS: BP 126/93; PULSE 139; RESP 21; O2SAT 85
[2024-08-15] VITALS (15 sets, daily range): BP systolic 107–153; BP diastolic 56–128; PULSE 4–141; RESP 15–25; TEMP 36.6–36.9; O2SAT 75–100
--- NOTE | 2024-08-15 00:05 | PM.HP ---
Providers/Chief Complaint Admitting Physician: Morenita Walden MD Primary Care Provider: Elliott Carson Chief Complaint: sob.cough, lower extremity edema, A-fib with RVR History of Present Illness Marissa Hyde is a 78 year old female with multiple medical history with much comorbidity. Patient has a history of CHF atrial fibrillation with RVR, diabetes, asthma, COPD with exacerbations, morbid obesity, hypertension and all acutely with current presentation. Patient was with hypoxemia saturating in the 70s at 71 recorded with blood pressure of 153/128 Patient told me she lives with her daughter but she does not know what medicine she takes and she related that she had any takes any. Nobody can quantify or accurately say what patient takes. She presents with congestive cough shortness of breath and could not give any medical history. I am at this time consulting social media marketing analyst to follow through with discharge disposition either home with home health if patient is actually cannot drive at home. Most likely go to long term for care. Atrial fibrillation upon EMS getting the patient was in the 180s blood pressure in the 180s systolic. Patient BNP is 2975. Patient received 40 mg of IV Lasix in the emergency room and Cardizem drip was started for atrial fibrillation with RVR patient has been admitted to stepdown unit to optimize CHF exacerbation atrial fibrillation with RVR. Patient is with debility with frequent falls Review of Systems General: Reports: 10 or more systems reviewed and unremarkable except in HPI and below Narrative: Patient review of system is significant for respiratory failure and cardiac failure with irregular heart rhythm Medications/Allergies Home Medications ?Medication ?Instructions ?Recorded ?Confirmed ?Last Taken ?Type budesonide-formoterol HFA 80 2 puff inhalation BID #10.2 grams 04/21/20 08/07/24 Unknown Rx mcg-4.5 mcg/actuation aerosol inhaler (Symbicort) levalbuterol tartrate 45 2 inh inhalation Q6H #15 grams 04/21/20 08/07/24 Unknown Rx mcg/actuation aerosol inhaler (Xopenex HFA) oxymetazoline 0.05 % nasal spray 2 spray intranasal Q12H PRN Nasal 04/21/20 08/07/24 Unknown History (Victrev Sinex 12-Hour) Congestion bumetanide 2 mg tablet 2 mg PO DAILY #14 tabs 06/22/21 08/07/24 Unknown Rx aspirin 81 mg tablet,delayed 81 mg PO DAILY 11/04/21 08/07/24 Unknown History release (Adult Aspirin Regimen) cetirizine 10 mg tablet See Rx Instructions .Route 01/14/22 08/07/24 Unknown Rx .COMPLEX #90 tabs citalopram 20 mg tablet See Rx Instructions .Route 01/14/22 08/07/24 Unknown Rx .COMPLEX #90 tabs diltiazem HCl 90 mg 90 mg PO BID #180 caps 01/14/22 08/07/24 Unknown Rx capsule,extended release 12 hr gabapentin 100 mg capsule See Rx Instructions .Route 01/14/22 08/07/24 Unknown Rx .COMPLEX #90 caps glipizide 5 mg-metformin 500 mg 2 tab PO BID #360 tabs 01/14/22 08/07/24 Unknown Rx tablet lisinopril 2.5 mg tablet See Rx Instructions .Route 01/14/22 08/07/24 Unknown Rx .COMPLEX #90 tabs omeprazole 20 mg capsule,delayed See Rx Instructions .Route 01/14/22 08/07/24 Unknown Rx release .COMPLEX #180 caps potassium chloride 10 mEq 10 meq PO DAILY #90 tabs 01/14/22 08/07/24 Unknown Rx tablet,extended release(part/cryst) nebulizer #1 ea 01/20/22 08/07/24 Unknown Rx albuterol sulfate 90 mcg/actuation 1 inh inhalation Q6H PRN shortness 01/28/22 08/07/24 Unknown Rx aerosol inhaler of breath or wheezing #8.5 grams blood sugar diagnostic (Blood #50 ea 10/15/22 08/07/24 Unknown Rx Glucose Test strips) blood-glucose meter (Blood Glucose #1 ea 10/15/22 08/07/24 Unknown Rx Monitoring kit) albuterol sulfate 2.5 mg/3 mL See Rx Instructions .Route 11/22/22 08/07/24 Unknown Rx (0.083 %) solution for nebulization .COMPLEX #120 ea cefdinir 300 mg capsule 300 mg PO Q12H #14 caps 08/09/24 Unknown Rx Allergies Allergy/AdvReac Type Severity Reaction Status Date / Time adhesive tape Allergy Unknown Verified 08/14/24 21:06 levofloxacin (From Levaquin) Allergy Unknown Verified 08/14/24 21:06 morphine Allergy Unknown Verified 08/14/24 21:06 nitrofurantoin (From Allergy Unknown Verified 08/14/24 21:06 Macrobid) oxytetracycline (From Allergy Unknown Verified 08/14/24 21:06 Terramycin with Polymyxin B) Penicillins Allergy Unknown Verified 08/14/24 21:06 polymyxin B (From Terramycin Allergy Unknown Verified 08/14/24 21:06 with Polymyxin B) Sulfa (Sulfonamide Allergy Unknown Verified 08/14/24 21:06 Antibiotics) PFSH Acute PFSH: Medical History PVCs (premature ventricular contractions) Encounter for monitoring digoxin therapy Obstructive sleep apnea Wears CPAP Hard of hearing GERD (gastroesophageal reflux disease) Gout Asthma Hypertension Diabetes mellitus type 2, noninsulin dependent Surgical History History of cataract surgery History of bladder surgery History of hysterectomy History of cholecystectomy History of partial thyroidectomy Family History Other CAD (coronary artery disease) Hypertension Social History Smoking and tobacco/nicotine status: never used tobacco/nicotine Second hand smoke exposure: Yes Alcohol intake: never Substance/Drug Use: never Adopted: No Caregiver/support person: Yes Lives independently: Yes Household members: none Housing: Other Details: Senior Housing Marital status: Single Current occupational status: disabled Pets and animals: No Do you think of yourself as: Straight/Heterosexual Current gender identity: Female Vitals/I&O/Wt Last Vital Signs Temp 97.9 F 08/14/24 21:01 Pulse 132 H 08/14/24 23:39 Resp 16 08/14/24 23:39 BP 149/95 08/14/24 23:39 Pulse Ox 96 08/14/24 23:39 O2 Del Method Nasal Cannula 08/14/24 23:28 08/14/24 08/14/24 08/15/24 14:59 22:59 06:59 Intake Total 5.917 / 5.917 Balance 5.917 / 5.917 Weight last 48 hrs Weight 89.386 kg Weight 90.718 kg Physical Exam Narrative: General The patient appears with well-nourished back to not articulates or give any answers to the questions asked HEENT?normocephalic atraumatic Neck?neck is supple Chest?congested with congestive cough active Lungs are clear with upper airway transmission of bronchial sounds Abdomen?soft nontender nondistended bed obese abdomen has good bowel Sounds ?Worley draining concentrated urine to gravity Extremity?edematous +4, positive pedal pulses Neurology?nonfocal Data 08/15/24 03:30 08/15/24 03:30 Micro: Positive urinalysis for UTI, greater than 100 white cells A-fib with RVR 130s to 180s: My Interpretation: Patient is with atrial fibrillation with RVR imaging and physical examination describe pulmonary edema A&P Assessment and plan (1) Atrial fibrillation with RVR: - Patient had been placed on Cardizem drip admitted to stepdown unit and responding well with heart rate coming down to 90s to low teens - Cardiology has been consulted and I have spoken with Dr. Childs about this patient his order will be put in at the end of this dictation - Patient had not been on aspirin not anticoagulant I have placed the patient on Eliquis for now patient has good renal function - Echocardiogram ordered as well for this patient (2) Congestive heart failure: Patient is with congestive heart failure with exacerbation - Has Worley placed though in the setting of UTI - Worley is necessary for intake and output and for patient convenience and comfort since patient is short of breath and cannot move much around - I recommend the Worley catheter be removed in and within 48 hours once patient start feeling better - Must continue to treat and optimize - Follow-up with intake and output, daily weight, and fluid restriction (3) Poor balance: Patient has ambulatory dysfunction and falls a lot with this - Consulted PT and is patient to follow-up with care (4) Neck pain: This is chronic to continue with pain management (5) Hyperlipidemia: Fasting lipid has been ordered patient is not on any statin and actually does not know what medicine he takes. Will initiate statin on this patient (6) URTI (acute upper respiratory infection): Patient has URI - Continue nebulizing treatment - Would not recommend steroid therapy on this patient at this time - Continue with treatments of congestive heart failure to further help with respiratory congestion - Patient is on steroid nebulizing treatment as well - She does not have any sign of infection (7) UTI (urinary tract infection): Urinary tract infection - I have placed the patient on antibiotics - Monitor closely once patient is able to feel better and get around Worley catheter must be removed to allow the treatment of UTI (8) GERD (gastroesophageal reflux disease): Continue GI prophylaxis with Protonix to help with gastroesophageal reflux disease (9) Gout: Continue home medication on gouty arthritis (10) Asthma: Continue nebulizing treatments of Pulmicort Xopenex. (11) Hypertension: Blood pressure is responding to medical care diastolic blood pressure had gone down from 128 TO 101 Must continue to treat and optimize (12) Edema of right lower leg due to peripheral venous insufficiency: Continue diuresis per order patient Rx on total of 80 mg IV Lasix in 2 divided doses (13) Compression fracture of T12 vertebra: Continue pain management PDMP PDMP Reviewed: Not Reviewed Attestations Medical Necessity Statement*: Attestation?I attest that this patient had multiple acute problems and in significant ill health requiring at least 2 midnights or greater for further optimization of care Time Spent in Patient Care: 60 Coding Level of Care Code 55782 Diagnoses Atrial fibrillation with RVR I48.91 Congestive heart failure I50.9 Poor balance R26.89 Neck pain M54.2 Hyperlipidemia E78.5 URTI (acute upper respiratory infection) J06.9 Acute cystitis without hematuria N30.00 Hematuria presence: without hematuria Urinary tract infection type: acute cystitis Gastroesophageal reflux disease without esophagitis K21.9 Esophagitis presence: without esophagitis Chronic gout without tophus, unspecified cause, unspecified site [id number] Chronicity: chronic Gout etiology: unspecified cause Gout site: unspecified site Presence of tophus: without tophus Asthma, unspecified asthma severity, unspecified whether complicated, unspecified whether persistent J45.909 Asthma complication type: unspecified Asthma persistence: unspecified Asthma severity: unspecified severity Essential hypertension I10 Hypertension type: essential hypertension Edema of right lower leg due to peripheral venous insufficiency I87.2; R60.0 Compression fracture of T12 vertebra S22.080A Time Spent (min) 60
[2024-08-15] MEDS: dilTIAZem 30 mg Tablet PO ×3 (01:33→14:08)
[2024-08-15] MEDS: dilTIAZem 5 mg/mL SDV 5 mL 10 MG IVP (01:39)
--- NOTE | 2024-08-15 01:45 | USCV_ITS ---
Marissa Hyde Age: 78 Gender: F : 1945 Exam Date: 08/15/2024 04:26 Ordering Phys: Morenita Walden MD Technologist: MARY Exam Location: [facility] [place] Indication: chf and afib with rvr BP: 153 / 128 HR: 82 Rhythm: irregular rhythm with Atrial fibrillation Technical Quality: Adequate MEASUREMENTS (Male / Female) Normal Values 2D ECHO LV Diastolic Diameter PLAX 4.5 cm 4.2 - 5.9 / 3.9 - 5.3 cm IVS Diastolic Thickness 1.3 cm 0.6 - 1.0 / 0.6 - 0.9 cm IVS Systolic Thickness 2.1 cm LVPW Diastolic Thickness 1.1 cm 0.6 - 1.0 / 0.6 - 0.9 cm LVPW Systolic Thickness 1.6 cm LVOT Diameter 2.0 cm LV Ejection Fraction 2D Teich 68.3 % LV Ejection Fraction MOD 4C 53.3 % LV Ejection Fraction MOD 2C 38.3 % LV Ejection Fraction 2C AL 39.4 % LA Diameter 5.4 cm LA Sys Volume AL 92.6 cm cubed LA Sys Volume Index AL 45.6 cm cubed/m squared Aorta at Sinotubular Diameter 2.5 cm IVC Diameter 2.4 cm M-MODE LA Ao Ratio MM 2.1 AV Cusp Separation MM 1.6 cm DOPPLER AV Peak Velocity 153.0 cm/s LVOT Peak Velocity 65.0 cm/s AV Area Cont Eq vti 1.2 cm squared AV Area Cont Eq pk 1.3 cm squared MV Peak Velocity 121.0 cm/s MV Area PHT 2.9 cm squared Mitral E to A Ratio 206.5 TR Peak Velocity 306.0 cm/s TR Peak Gradient 37.5 mmHg TV Peak E Velocity 62.0 cm/s PV Peak Velocity 77.0 cm/s FINDINGS Left Ventricle Mild to moderate calcific ventricular hypertrophy. Normal LV size with an ejection fraction of 68%. Right Ventricle The right ventricle is normal in size and function. Right Atrium The right atrium is normal in size. Left Atrium Moderately increased left atrial size. Mitral Valve Mild mitral valve regurgitation. Aortic Valve Thickened aortic valve. Tricuspid Valve Mild tricuspid valve regurgitation. Estimated pulmonary artery peak systolic pressure 47 mmHg Pulmonic Valve Trace pulmonary valve regurgitation. Pericardium No pericardial effusion. Aorta Normal ascending aorta dimension. IVC Normal IVC dimension with <50% respiratory change of the inferior vena cava. CONCLUSIONS Mild to moderate calcific ventricular hypertrophy. Normal LV size with an ejection fraction of 68%. Moderately increased left atrial size. Mild mitral valve regurgitation. Thickened aortic valve. Mild tricuspid valve regurgitation. Mild pulmonary hypertension. Estimated pulmonary artery peak systolic pressure 47 mmHg. Trace pulmonary valve regurgitation. There are no intracardiac masses. There is no pericardial effusion. Compared to the study from 11/29/2017, there may not be a significant change Dr Waqas Fenton MD [facility] (Electronically Signed) Final Date: 15 Aug 2024 19:14 S
[2024-08-15] MEDS: levalbuterol 1.25 mg/3 mL Neb INHALATION ×4 (02:36→20:03)
[2024-08-15 04:09] LABS: Basophils % 0.2 %; Eosinophils # 0.1 10^3/uL (0.0-0.8); Eosinophils % 0.5 %; Lymphocytes # 1.4 10^3/uL (0.8-4.8); Lymphocytes % 14.6 %; Mean Corpuscular HGB Conc 31.1 g/dL (30-55); Mean Corpuscular Hemoglobin 29.6 pg (27-33); Mean Corpuscular Volume 95.1 fl (85-98); Mean Platelet Volume 10.4 fL (7.4-10.4); Monocytes # 0.5 10^3/uL (0.2-0.9); Monocytes % 5.1 %; Neutrophils # 7.52 10^3/uL (1.8-7.7); Nucleated Red Blood Cells % 0 %; Platelet Count 273 10^3/cmm (157-399); Red Blood Count 3.89 10^6/uL (3.85-5.65); Red Cell Distribution Width 13.6 % (12.1-15.1); White Blood Count 9.53 10^3/uL (3.29-11.43)
[2024-08-15 04:27] LABS: Estmated Average Glucose 194; Hemoglobin A1C 8.4 % (4.0-6.0)
[2024-08-15 04:33] LABS: Alanine Aminotransferase 24 U/L (0-33); Albumin Level 3.3 g/dL (3.5-5.2); Alkaline Phosphatase 106 U/L (35-105); Blood Urea Nitrogen 18 mg/dL (8-23); Carbon Dioxide 24 mmol/L (22-29); Chloride 102 mmol/L (98-107); Creatinine Clr Calc Pharmacy 63.3933; Globulin 3.8 g/dL (1.3-4.6); Glucose 205 mg/dL (65-115); Osmolality Calculated 294 mOsm/kg (285-295); Phosphorus 3.1 mg/dL (2.5-4.5); Sodium 138 mmol/L (136-145); Total Bilirubin 0.4 mg/dL (0.15-1.2); Total Protein 7.1 g/dL (6.6-8.7)
[2024-08-15 04:35] LABS: NT Pro B Type Natriuretic Pept 3062 pg/mL (0-450)
[2024-08-15 04:42] LABS: Anion Gap 16.5 (5-19); Aspartate Amino Transferase 20 U/L (0-32); Potassium 4.5 mmol/L (3.5-5.1)
[2024-08-15 04:48] LABS: Slide Review Slide Review Perform
[2024-08-15] MEDS: pantoprazole 40 mg SDV IVP (05:11)
[2024-08-15] MEDS: dilTIAZem 100 MG in sodium chloride 0.9% (add-van) 100 ML 7.5 MG IV (05:11)
[2024-08-15 06:12] LABS: Glucose Point of Care 208 mg/dL (70-110)
[2024-08-15] MEDS: budesonide 0.5 mg/2 mL Neb INHALATION ×2 (07:30→20:04)
[2024-08-15] MEDS: FUROsemide 10 mg/mL SDV 4mL 40 MG IVP (07:45)
[2024-08-15] MEDS: apixaban 5 mg Tablet PO ×2 (07:46→20:39)
[2024-08-15] MEDS: lisinopril 2.5 mg Tablet PO (07:46)
--- NOTE | 2024-08-15 08:45 | PC.PHAR ---
Pt extremely hard of hearing but we did get through her medications and verified otc's. Pt states she took her morning medications yesterday. Due to the last fill dates-I verified with Anibal in [facility]. [facility] states they received pts records from [facility] in March, when they closed. They have never filled any of them except the new antibiotics. Keflex 500mg tid x7days 08/07/24-08/14/24 (finished yesterday) and Cefdinir 300mg q12h x7days 08/09/24-08/16/24 (has 2 days left). Seems
[2024-08-15] MEDS: aspirin 81 mg EC Tablet PO (09:42)
[2024-08-15] MEDS: citalopram 20 mg Tablet PO (09:42)
--- NOTE | 2024-08-15 10:26 | PC.CHAP ---
Pastoral Care Encounter/Spiritual Assessment Type of Contact [] Declined tax audit manager visit [] Patient/Family/Request visit [] Outpatient visit [] Follow-up visit [] Physician referral [] Code/Alert [x] Routine visit [] Staff referral [] Actively dying [] Patient sleeping [] Family support [] [] Out of room [] Palliative care [] [] Receiving care in room [] Pre-surgical visit [] Trauma [] Long length of stay [] ICU visit [] Other: Relational/Emotional Strength [x] Patient feels connected with others/family/visitors/staff [] Distress [] Loneliness/isolation [] Abandonment Spirituality of Patient [x] Person of Penny [] Attends Bahai of their Epnny [x] Believes in Prayer [] Reads Bible or Advent materials [] There are Spiritual issues to be addressed Retail Seasonal Specialist Interventions [x] Prayer [x] Active listening [x] Non-anxious presence [x] Spiritual/emotional support [] Crisis/trauma care [] Spiritual counseling [] Bereavement support [] Provided bereavement packet [] Provided Bible/devotional materials [] Provided toy/stuffed animal, coloring book to patient or family member [] Provided Communion [] Anointing/[place] [] Salvation [x] Completed spiritual assessment [] Other: Impact on Illness or Injury [] Angry [] Fearful [] Anxious [] Often cries [] Exhaustion [] Unable to work [] Unable to attend islam [] Unable to walk/stand [] Unable to read [] Unable to drive [] Unable to eat/drink [] Unable to sleep [] Unable to be with family [] Patient intubated [] Other: Summary Time spent with patient 5 min
--- NOTE | 2024-08-15 12:48 | PM.CONSULT ---
Providers/Reason For Consult Consulting Physician/Specialty*: TARI Fenton MD/cardiology Reason for Consult*: Patient with atrial fibrillation rapid ventricular rate/congestive heart failure Attending Physician: Hermilo Hunter MD Primary Care Provider: Elliott Carson History of Present Illness History of Present Illness Marissa Hyde is a 78 year old female is admitted to hospital through the emergency room where she presented with complaints of progressive shortness of breath. She was found to be in atrial fibrillation with a rapid ventricular rate. She also had features of congestive heart failure. Cardiology relative is requested for further cardiac evaluation recommendations. This patient is known to have chronic intermittent atrial fibrillation. She also is known to have recurrent diastolic heart failure and reactive airway disease with significant exacerbation. He also is known to have obstructive sleep apnea and COPD. She has been on home oxygen ever since the COVID-pneumonia in 2019. She has been using 2 L of oxygen by nasal cannula. She denies any chest pain or chest tightness. No palpitations, dizziness or syncopal episodes. She was found to be hypoxemic in the emergency room. She was given IV diuretics and oxygen by facemask. Her oxygenation gradually improved. Currently she is on 2 L of oxygen by nasal cannula on a as needed basis. Denies any fever or chills. No significant cough. Patient has a history of hypertension, diabetes and dyslipidemia. She also has a history of ventricular arrhythmia, PVCs by EKG. She had a Myocardial perfusion imaging many years ago. She was told no evidence of ischemia at that time. Review of Systems Narrative: CONSTITUTIONAL: No fever or chills. EYES: No blurring of vision or other visual disturbances lately. ENT: No hoarseness of voice, auditory disturbances or sore throat. CARDIOVASCULAR: As mentioned above. RESPIRATORY: No significant cough. GASTROINTESTINAL: No hematemesis or melena. GENITOURINARY: No dysuria or hematuria. INTEGUMENTARY: No skin rashes or history of skin cancer. NEURO: No transient ischemic attacks or amaurosis. PSYCHIATRIC: No history of psychosis or major depression. HEMATOLOGIC: No bleeding disorders or significant anemia. ENDOCRINE: No history of polyuria or polydipsia. MUSCULOSKELETAL: No recent joint pain or swelling. ALLERGY/IMMUNOLOGY: As mentioned above. Medications/Allergies Home Medications ?Medication ?Instructions ?Recorded ?Confirmed ?Last Taken ?Type aspirin 81 mg tablet,delayed 81 mg PO DAILY 08/01/1608/15/24 08/14/24 History release (Adult Aspirin Regimen) cetirizine 10 mg tablet See Rx Instructions .Route 01/14/22 08/15/24 08/14/24 Rx .COMPLEX #90 tabs citalopram 20 mg tablet See Rx Instructions .Route 01/14/22 08/15/24 08/14/24 Rx .COMPLEX #90 tabs diltiazem HCl 90 mg 90 mg PO BID #180 caps 01/14/22 08/15/24 08/14/24 Rx capsule,extended release 12 hr glipizide 5 mg-metformin 500 mg 2 tab PO BID #360 tabs 01/14/22 08/15/24 08/14/24 Rx tablet lisinopril 2.5 mg tablet See Rx Instructions .Route 01/14/22 08/15/24 08/14/24 Rx .COMPLEX #90 tabs nebulizer #1 ea 01/20/22 08/15/24 Unknown Rx blood sugar diagnostic (Blood #50 ea 10/15/22 08/15/24 Unknown Rx Glucose Test strips) blood-glucose meter (Blood Glucose #1 ea 10/15/22 08/15/24 Unknown Rx Monitoring kit) cefdinir 300 mg capsule 300 mg PO Q12H #14 caps 08/09/24 08/15/24 08/14/24 Rx albuterol sulfate 2.5 mg/3 mL 2.5 mg continuous nebulization QID 08/15/24 08/15/24 Unknown History (0.083 %) solution for nebulization PRN Shortness Of Breath dapagliflozin propanediol 10 mg 10 mg PO DAILY 08/15/24 08/15/24 08/14/24 History tablet (Farxiga) oxybutynin chloride 5 mg 5 mg PO DAILY 08/15/24 08/15/24 08/14/24 History tablet,extended release 24 hr pravastatin 10 mg tablet 10 mg PO QPM 08/15/24 08/15/24 08/13/24 History semaglutide 14 mg tablet (Rybelsus) 14 mg PO DAILY 08/15/24 08/15/24 08/13/24 History spironolactone 25 mg tablet 25 mg PO DAILY 08/15/24 08/15/24 08/14/24 History Allergies Allergy/AdvReac Type Severity Reaction Status Date / Time adhesive tape Allergy Unknown Verified 08/14/24 21:06 levofloxacin (From Levaquin) Allergy Unknown Verified 08/14/24 21:06 morphine Allergy Unknown Verified 08/14/24 21:06 nitrofurantoin (From Allergy Unknown Verified 08/14/24 21:06 Macrobid) oxytetracycline (From Allergy Unknown Verified 08/14/24 21:06 Terramycin with Polymyxin B) Penicillins Allergy Unknown Verified 08/14/24 21:06 polymyxin B (From Terramycin Allergy Unknown Verified 08/14/24 21:06 with Polymyxin B) Sulfa (Sulfonamide Allergy Unknown Verified 08/14/24 21:06 Antibiotics) Current Medications Generic Name Dose Route Start Last Admin Trade Name Freq PRN Reason Stop Dose Admin Apixaban 5 mg 08/15/24 09:00 08/15/24 07:46 Apixaban 5 Mg Tablet PO 5 mg BID@0900,2100 COREY Administration Aspirin 81 mg 08/15/24 09:30 08/15/24 09:42 Aspirin 81 Mg Ec Tablet PO 81 mg DAILY COREY Administration Budesonide 0.5 mg 08/15/24 08:00 08/15/24 07:30 Budesonide 0.5 Mg/2 Ml Neb INHALATION 0.5 mg BID.RESPIRATORY COREY Administration Citalopram Hydrobromide 20 mg 08/15/24 09:15 08/15/24 09:42 Citalopram 20 Mg Tablet PO 20 mg DAILY COREY Administration Diltiazem HCl 30 mg 08/15/24 01:15 08/15/24 07:46 Diltiazem 30 Mg Tablet PO 30 mg Q6H COREY Administration Diltiazem HCl 100 mg/ Sodium 100 mls @ 0 mls/hr 08/14/24 21:15 08/15/24 08:41 Chloride IV 10 mg/hr .Q0M COREY 10 mls/hr Protocol Titration Per Protocol Levalbuterol HCl 1.25 mg 08/15/24 02:00 08/15/24 07:30 Levalbuterol 1.25 Mg/3 Ml Neb INHALATION 1.25 mg Q6H.RESP COREY Administration Lisinopril 2.5 mg 08/15/24 09:00 08/15/24 07:46 Lisinopril 2.5 Mg Tablet PO 2.5 mg DAILY COREY Administration Pantoprazole Sodium 40 mg 08/15/24 06:00 08/15/24 05:11 Pantoprazole 40 Mg Sdv IVP 40 mg Q24H COREY Administration PFSH Acute PFSH: Medical History PVCs (premature ventricular contractions) Encounter for monitoring digoxin therapy Obstructive sleep apnea Wears CPAP Hard of hearing GERD (gastroesophageal reflux disease) Gout Asthma Hypertension Diabetes mellitus type 2, noninsulin dependent Surgical History History of cataract surgery History of bladder surgery History of hysterectomy History of cholecystectomy History of partial thyroidectomy Family History Other CAD (coronary artery disease) Hypertension Social History Smoking and tobacco/nicotine status: never used tobacco/nicotine Second hand smoke exposure: Yes Alcohol intake: never Substance/Drug Use: never Adopted: No Caregiver/support person: Yes Lives independently: Yes Household members: none Housing: Other Details: Senior Housing Marital status: Single Current occupational status: disabled Pets and animals: No Do you think of yourself as: Straight/Heterosexual Current gender identity: Female Vitals/I&O/Wt Last Vital Signs Temp 98.2 F 08/15/24 11:13 Pulse 89 08/15/24 11:13 Resp 22 H 08/15/24 11:13 BP 111/61 08/15/24 11:13 Pulse Ox 98 08/15/24 11:13 O2 Del Method Nasal Cannula 08/15/24 11:13 O2 Flow Rate 2 08/15/24 07:31 08/14/24 08/15/24 08/15/24 22:59 06:59 14:59 Intake Total 5.917 / 5.917 194.083 / 200.000 386.25 / 386.25 Output Total 2600 / 2600 1300 / 1300 Balance 5.917 / 5.917 -2405.917 / -2400.000 -913.75 / -913.75 Weight last 48 hrs Weight 208 lb 9.6 oz Weight 197 lb 1 oz Weight 200 lb Physical Exam Narrative: GENERAL: The patient is alert and oriented times three. Not in any acute distress. HEENT: No significant pallor, icterus or lymphadenopathy.Oral cavity: There are no mucous membrane lesions. NECK: Trachea appears to be central. No masses noted. No JVD or thyromegaly appreciated. RESPIRATORY: Chest is symmetrical. No intercostals muscle retraction or any accessory muscle activation. There is no chest wall tenderness. Breath sounds are heard bilaterally. No rales or rhonchi heard. No evidence of any consolidation. BREASTS: Deferred. HEART: The heart sounds are normal. No S3 or S4. Short systolic murmur at the left sternal border. No diastolic murmurs. No pericardial rub ABDOMEN: No vessel pulsations or distention. No tenderness. No organomegaly appreciated. Bowel sounds are normally heard. : Deferred. RECTAL: Deferred. LYMPHATIC: No lymphadenopathy noted in the neck. EXTREMITIES: 1-2+ edema both lower 70s. No cyanosis. Peripheral pulses are palpable but weak bilaterally. MUSCULOSKELETAL: No acute joint deformities or swelling SKIN: There are no significant rashes or ecchymosis NEUROPSYCHIATRIC: The patient is alert and oriented x3. Appears to be in a good mood. No tremors or rigidity noted. Data 08/16/24 04:14 08/16/24 04:14 Other Labs: Laboratory Last Values WBC 9.53 10^3/uL (3.29-11.43) 08/15/24 03:30 RBC 3.89 10^6/uL (3.85-5.65) 08/15/24 03:30 Hgb 11.50 g/dL (11.27-16.99) 08/15/24 03:30 Hct 37.0 % (36-47) 08/15/24 03:30 MCV 95.1 fl (85-98) 08/15/24 03:30 MCH 29.6 pg (27-33) 08/15/24 03:30 MCHC 31.1 g/dL (30-55) 08/15/24 03:30 RDW 13.6 % (12.1-15.1) 08/15/24 03:30 Plt Count 273 10^3/cmm (157-399) 08/15/24 03:30 MPV 10.4 fL (7.4-10.4) 08/15/24 03:30 Neut % (Auto) 79.0 % 08/15/24 03:30 Lymph % (Auto) 14.6 % 08/15/24 03:30 Winn % (Auto) 5.1 % 08/15/24 03:30 Eos % (Auto) 0.5 % 08/15/24 03:30 Baso % (Auto) 0.2 % 08/15/24 03:30 Neut # (Auto) 7.52 10^3/uL (1.8-7.7) 08/15/24 03:30 Lymph # (Auto) 1.4 10^3/uL (0.8-4.8) 08/15/24 03:30 Winn # (Auto) 0.5 10^3/uL (0.2-0.9) 08/15/24 03:30 Eos # (Auto) 0.1 10^3/uL (0.0-0.8) 08/15/24 03:30 Baso # (Auto) 0.0 10^3/uL (0.0-0.1) 08/15/24 03:30 Nucleated RBC % (auto) 0 % 08/15/24 03:30 Nucleated RBCs # 0.0 /100WBC 08/15/24 03:30 PT 13.70 SECONDS (12.1-14.9) 08/14/24 21: INR 0.98 (0.8-1.2) 08/14/24 21:31 Sodium 138 mmol/L (136-145) 08/15/24 03:30 Potassium 4.5 mmol/L (3.5-5.1) 08/15/24 03:30 Chloride 102 mmol/L (98-107) 08/15/24 03:30 Carbon Dioxide 24 mmol/L (22-29) 08/15/24 03:30 Anion Gap 16.5 (5-19) 08/15/24 03:30 BUN 18 mg/dL (8-23) 08/15/24 03:30 Creatinine 0.8 mg/dL (0.5-0.9) 08/15/24 03:30 GFR Calculation Not Reportable 08/15/24 03:30 Glucose 205 mg/dL (65-115) H 08/15/24 03:30 POC Glucose 208 mg/dL (70-110) H 08/15/24 06:01 Estimat Average Glucose 194 08/15/24 03:30 Hemoglobin A1c 8.4 % (4.0-6.0) H 08/15/24 03:30 Calculated Osmolality 294 mOsm/kg (285-295) 08/15/24 03:30 Calcium 9.0 mg/dL (8.5-10.5) 08/15/24 03:30 Phosphorus 3.1 mg/dL (2.5-4.5) 08/15/24 03:30 Total Bilirubin 0.4 mg/dL (0.15-1.2) 08/15/24 03:30 AST 20 U/L (0-32) 08/15/24 03:30 ALT 24 U/L (0-33) 08/15/24 03:30 Alkaline Phosphatase 106 U/L (35-105) H 08/15/24 03:30 NT-Pro-B Natriuret Pep 3062 pg/mL (0-450) H 08/15/24 03:30 Total Protein 7.1 g/dL (6.6-8.7) 08/15/24 03:30 Albumin 3.3 g/dL (3.5-5.2) L 08/15/24 03:30 Globulin 3.8 g/dL (1.3-4.6) 08/15/24 03:30 EKG 1: My Interpretation: EKG showed atrial fibrillation with rapid ventricular rate. No acute ST-T changes A&P Assessment and plan (1) Atrial fibrillation with RVR: Patient is on IV Cardizem. The heart rate seems to be fairly under control. Etiology of the atrial fibrillation is not clear. Hemodynamically she is seems to be stable. (2) Congestive heart failure: Patient mated with IV diuretics and other symptomatic measures. Had echocardiography helpful to evaluate LV function and rule out any other pathology. Also may consider doing a Myocardial perfusion imaging to evaluate for any underlying coronary ischemia. (3) Hyperlipidemia: May continue on the current management. (4) Hypertension: The blood pressure seems to be under control. May continue on the current medications. (5) Diabetes mellitus type 2, noninsulin dependent: The blood sugar seems to be under control. May continue on the current management. (6) Obstructive sleep apnea: It is not very clear whether the patient is on CPAP at home or not. This may need to be further evaluated Plan Echocardiogram to evaluate LV function and rule out any other pathology Consider Myocardial perfusion imaging to evaluate for any underlying coronary ischemia. May continue on the current medication. Apparently the patient was taken off the oral anticoagulant in the past because of the frequent fall. May consider Watchman procedure Patient is a patient Significant progress on the results of the above, further recommendations will be made. Thank you for the opportunity to evaluate this patient and make these recommendations PDMP PDMP Reviewed: Not Reviewed Coding Level of Care Code 45862 Diagnoses Atrial fibrillation with RVR I48.91 Acute on chronic congestive heart failure, unspecified heart failure type I50.9 Heart failure chronicity: acute on chronic Heart failure type: unspecified Mixed hyperlipidemia E78.2 Hyperlipidemia type: mixed hyperlipidemia Essential hypertension I10 Hypertension type: essential hypertension Diabetes mellitus type 2, noninsulin dependent E11.9 Obstructive sleep apnea G47.33
--- NOTE | 2024-08-15 13:31 | PC.NURSE ---
Dr Fenton into see patient. Discussed plan for cardiac stress test in am
--- NOTE | 2024-08-15 14:04 | P.PN_ITS ---
Subjective 2 Subjective: Patient was seen this morning, patient is very hard of hearing, I communicated with patient by using pen and paper, as she is very hard of hearing, she denies any chest pain, reports palpitations, does report shortness of breath, and edema, remains in atrial fibrillation on a Cardizem drip heart rates in the 140s Vitals/I&O/Wt Last Vital Signs Temp 98.2 F 08/15/24 11:13 Pulse 89 08/15/24 11:13 Resp 22 H 08/15/24 11:13 BP 111/61 08/15/24 11:13 Pulse Ox 98 08/15/24 11:13 O2 Del Method Nasal Cannula 08/15/24 11:13 O2 Flow Rate 2 08/15/24 07:31 08/14/24 08/15/24 08/15/24 22:59 06:59 14:59 Intake Total 5.917 / 5.917 194.083 / 200.000 746.25 / 746.25 Output Total 2600 / 2600 1300 / 1300 Balance 5.917 / 5.917 -2405.917 / -2400.000 -553.75 / -553.75 Weight last 48 hrs Weight 94.619 kg Weight 89.386 kg Weight 90.718 kg Physical Exam 2 Const: COMMON NORMALS: no acute distress and patient oriented x3 Resp: COMMON NORMALS: normal respiratory effort, No retractions and No use of accessory muscles AUSCULTATION: crackles and wheezes Cardio: COMMON NORMALS: S1 normal heart sound present and S2 normal heart sound present RATE: tachycardic RHYTHM: abnormal rhythm HEART SOUNDS: S 1 normal heart sound present and S2 normal heart sound present GI: COMMON NORMALS: Normal to inspection, nondistended, normoactive bowel sounds present and non-tender Extremity: COMMON NORMALS: no calf tenderness and no pedal edema Neuro: COMMON NORMALS: patient oriented x3, CN's II-XII intact bilaterally and moves all extremities Psych: COMMON NORMALS: mental status grossly normal Data 08/15/24 03:30 08/15/24 03:30 A&P Assessment and plan (1) Atrial fibrillation with RVR: - New onset A-fib with RVR - Continue Cardizem drip, transition to p.o. Cardizem - Continue Eliquis - Cardiac echocardiogram (2) Congestive heart failure: - Cardiac echocardiogram - Systolic and diastolic CHF exacerbation - Urine output 3900 - Daily dose Lasix currently on Lasix 40 IV twice daily (3) Poor balance: PT OT (4) Neck pain: (5) Hyperlipidemia: (6) URTI (acute upper respiratory infection): - Monitor (7) UTI (urinary tract infection): - Continue ciprofloxacin (8) GERD (gastroesophageal reflux disease): Continue GI prophylaxis with Protonix to help with gastroesophageal reflux disease (9) Gout: Continue home medication on gouty arthritis (10) Asthma: Continue nebulizing treatments of Pulmicort Xopenex. (11) Hypertension: (12) Edema of right lower leg due to peripheral venous insufficiency: (13) Compression fracture of T12 vertebra: Continue pain management Plan Plan for today, cardiology consultation, continue Cardizem drip, transition to p.o. Cardizem, cardiac echo, IV diuresis PDMP PDMP Reviewed: Not Reviewed Attestations 2 Medical Necessity Statement*: Patient requires hospitalization for atrial fibrillation with rapid ventricular response, systolic and diastolic CHF Diagnoses Atrial fibrillation with RVR I48.91 Congestive heart failure I50.9 Poor balance R26.89 Neck pain M54.2 Hyperlipidemia E78.5 URTI (acute upper respiratory infection) J06.9 Acute cystitis without hematuria N30.00 Urinary tract infection type: acute cystitis Hematuria presence: without hematuria Gastroesophageal reflux disease without esophagitis K21.9 Esophagitis presence: without esophagitis Chronic gout without tophus, unspecified cause, unspecified site [id number] Gout site: unspecified site Gout etiology: unspecified cause Chronicity: chronic Presence of tophus: without tophus Asthma, unspecified asthma severity, unspecified whether complicated, unspecified whether persistent J45.909 Asthma severity: unspecified severity Asthma persistence: unspecified Asthma complication type: unspecified Essential hypertension I10 Hypertension type: essential hypertension Edema of right lower leg due to peripheral venous insufficiency I87.2; R60.0 Compression fracture of T12 vertebra S22.080A
[2024-08-15] MEDS: dilTIAZem 100 MG in sodium chloride 0.9% (add-van) 100 ML 10 MG IV (14:07)
[2024-08-15] MEDS: dilTIAZem 60 mg Tablet PO (20:39)
[2024-08-15] MEDS: ATORVASTATIN 10 MG TABLET 20 MG PO (20:39)
[2024-08-15 21:31] LABS: Glucose Point of Care 242 mg/dL (70-110)
[2024-08-16] VITALS (16 sets, daily range): BP systolic 100–143; BP diastolic 43–72; PULSE 79–109; RESP 16–29; TEMP 36.4–38.1; O2SAT 88–100
[2024-08-16] MEDS: dilTIAZem 60 mg Tablet PO ×4 (02:16→20:47)
[2024-08-16] MEDS: levalbuterol 1.25 mg/3 mL Neb INHALATION ×3 (02:29→20:27)
[2024-08-16 04:24] LABS: Basophils % 0.1 %; Eosinophils # 0.1 10^3/uL (0.0-0.8); Eosinophils % 1.3 %; Hematocrit 33.7 % (36-47); Lymphocytes # 1.2 10^3/uL (0.8-4.8); Lymphocytes % 13.2 %; Mean Corpuscular HGB Conc 30.6 g/dL (30-55); Mean Corpuscular Hemoglobin 29.9 pg (27-33); Mean Platelet Volume 8.6 fL (7.4-10.4); Monocytes # 0.6 10^3/uL (0.2-0.9); Monocytes % 6.4 %; Neutrophils # 7.12 10^3/uL (1.8-7.7); Neutrophils % 78.6 %; Nucleated Red Blood Cells % 0 %; Platelet Count 272 10^3/cmm (157-399); Red Blood Count 3.44 10^6/uL (3.85-5.65); Red Cell Distribution Width 13.7 % (12.1-15.1); White Blood Count 9.07 10^3/uL (3.29-11.43)
[2024-08-16 04:49] LABS: Alanine Aminotransferase 17 U/L (0-33); Albumin Level 3.4 g/dL (3.5-5.2); Alkaline Phosphatase 95 U/L (35-105); Aspartate Amino Transferase 11 U/L (0-32); Blood Urea Nitrogen 22 mg/dL (8-23); Calcium 8.6 mg/dL (8.5-10.5); Carbon Dioxide 29 mmol/L (22-29); Chloride 101 mmol/L (98-107); Creatinine Clr Calc Pharmacy 50.7147; Globulin 2.9 g/dL (1.3-4.6); Glucose 230 mg/dL (65-115); Magnesium 1.8 mg/dL (1.7-2.3); Osmolality Calculated 301 mOsm/kg (285-295); Sodium 140 mmol/L (136-145); Total Bilirubin 0.3 mg/dL (0.15-1.2); Total Protein 6.3 g/dL (6.6-8.7)
[2024-08-16 04:59] LABS: NT Pro B Type Natriuretic Pept 1794 pg/mL (0-450)
[2024-08-16] MEDS: pantoprazole 40 mg SDV IVP (05:16)
--- NOTE | 2024-08-16 07:00 | XR_ITS ---
WS: [id number] Portable AP upright chest, 08/16/2024 Clinical Data: sob Comparison: Portable chest, 08/14/2024 Findings: No nodules, masses or effusions are seen. The heart is normal. The pulmonary vascularity is not increased. No pneumonia or pneumothorax is seen. The aortic arch and descending thoracic aorta show calcification and mild tortuosity. Monitor leads are on the chest wall. There is an orthopedic anchor in the right shoulder. XR/XR chest 1V portable [id number] Impression: Atherosclerosis.
[2024-08-16] MEDS: regadenoson 0.4 Mg/5 ml Syringe IVP (07:12)
[2024-08-16] MEDS: lisinopril 2.5 mg Tablet PO (09:25)
[2024-08-16] MEDS: apixaban 5 mg Tablet PO ×2 (09:25→20:47)
[2024-08-16] MEDS: citalopram 20 mg Tablet PO (09:25)
[2024-08-16] MEDS: aspirin 81 mg EC Tablet PO (09:25)
[2024-08-16] MEDS: FUROsemide 10 mg/mL SDV 4mL 40 MG IVP (09:25)
[2024-08-16 10:14] LABS: Add Urine Microscopic? YES; UA Manual Slide Review YES; Urine Appearance Cloudy (CLEAR); Urine Color Other (Yellow)
[2024-08-16 10:17] LABS: Add Urine Culture? Yes; Bacteria Urine 1+ /hpf; RBC Urine TOO NUMEROUS TO CNT /hpf (0-2); WBC Urine >100 /hpf (0-5)
--- NOTE | 2024-08-16 10:39 | USR_ITS ---
PROCEDURE INFORMATION: Exam: US Retroperitoneal, Complete, Kidneys and Bladder Exam date and time: 08/16/2024 4:53 PM Age: 78 years old Clinical indication: Condition or disease; Other: UTI; Additional info: UTI, hematuria TECHNIQUE: Imaging protocol: Real-time ultrasound of the retroperitoneum with image documentation. Complete exam focused on the bilateral kidneys and urinary bladder. COMPARISON: CT abdomen wo con [id number] 11/08/2017 9:34 AM FINDINGS: Right kidney: Normal. No stones. No hydronephrosis. Right kidney measures 10.9 cm in length. Left kidney: Normal. No stones. No hydronephrosis. Left kidney measures 9.8 cm in length. Urinary bladder: Not well visualized due to patient body habitus and positioning. Aorta: Distal aorta measures 2.3 cm in caliber. Otherwise limited visibility. US/US renal BI* [id number] IMPRESSION: 1. No hydronephrosis. 2. Urinary bladder not well visualized.
[2024-08-16] MEDS: meropenem 500 mg SDV IVP ×2 (10:58→19:03)
--- NOTE | 2024-08-16 13:30 | P.PN_ITS ---
Subjective 2 Subjective: patient was seen this morning currently alert oriented x 3, follows all commands is quite hard of hearing, denies any nausea, no vomiting, abdominal pain, no chest pain Vitals/I&O/Wt Last Vital Signs Temp 97.5 F L 08/16/24 12:00 Pulse 102 H 08/16/24 12:00 Resp 19 H 08/16/24 12:00 BP 105/43 08/16/24 12:00 Pulse Ox 99 08/16/24 12:00 O2 Del Method Nasal Cannula 08/16/24 12:00 O2 Flow Rate 2 08/16/24 12:00 08/15/24 08/16/24 08/16/24 22:59 06:59 14:59 Intake Total 576.667 / 1377.250 150 / 1527.250 360 / 360 Output Total 700 / 2000 250 / 2250 Balance -123.333 / -622.750 -100 / -722.750 360 / 360 Weight last 48 hrs Weight 89.675 kg Weight 94.619 kg Weight 89.386 kg Weight 90.718 kg Physical Exam 2 Const: COMMON NORMALS: no acute distress and patient oriented x3 Resp: COMMON NORMALS: normal respiratory effort, No retractions, No use of accessory muscles and clear to auscultation bilaterally AUSCULTATION: clear to auscultation bilaterally Cardio: COMMON NORMALS: S1 normal heart sound present and S2 normal heart sound present RATE: tachycardic RHYTHM: abnormal rhythm HEART SOUNDS: S 1 normal heart sound present and S2 normal heart sound present GI: COMMON NORMALS: Normal to inspection, nondistended, normoactive bowel sounds present and non-tender Extremity: COMMON NORMALS: no calf tenderness and no pedal edema Neuro: COMMON NORMALS: patient oriented x3 Psych: COMMON NORMALS: mental status grossly normal Urinary Catheter Management: Worley: Cath Placed During This Visit: yes, but has since been removed by the nurse Reason for Continuing Indwelling Catheter: Acute Urinary Retention or Obstruction Date Urinary Catheter Removed: 08/16/24 Time Urinary Catheter Discontinued: 11:24 Data 08/16/24 04:14 08/16/24 04:14 A&P Assessment and plan (1) Atrial fibrillation with RVR: - New onset A-fib with RVR - transition to p.o. Cardizem, increased to 60 every 6 - Continue Eliquis - Cardiac echocardiogram CONCLUSIONS Mild to moderate calcific ventricular hypertrophy. Normal LV size with an ejection fraction of 68%. Moderately increased left atrial size. Mild mitral valve regurgitation. Thickened aortic valve. Mild tricuspid valve regurgitation. Mild pulmonary hypertension. Estimated pulmonary artery peak systolic pressure 47 mmHg. Trace pulmonary valve regurgitation. There are no intracardiac masses. There is no pericardial effusion. Compared to the study from 11/29/2017, there may not be a significant change (2) Congestive heart failure: - Cardiac echocardiogram - Systolic and diastolic CHF exacerbation - Urine output 3900 - Daily dose Lasix currently on Lasix 40 IV twice daily (3) Poor balance: PT OT (4) Neck pain: (5) Hyperlipidemia: (6) URTI (acute upper respiratory infection): - Monitor (7) UTI (urinary tract infection): - Has evidence of worsening UTI, with Worley catheter in place -Will Worley catheter -Renal ultrasound -History of Enterobacter, switch to meropenem -Renal ultrasound ordered (8) GERD (gastroesophageal reflux disease): Continue GI prophylaxis with Protonix to help with gastroesophageal reflux disease (9) Gout: Continue home medication on gouty arthritis (10) Asthma: Continue nebulizing treatments of Pulmicort Xopenex. (11) Hypertension: (12) Edema of right lower leg due to peripheral venous insufficiency: (13) Compression fracture of T12 vertebra: Continue pain management Plan Plan for today, IV diuresis, nuclear stress test, uti antibiotic coverage expanded to meropenem, remove Worley catheter, PT OT PDMP PDMP Reviewed: Not Reviewed Attestations 2 Medical Necessity Statement*: Patient requires hospitalization for atrial fibrillation, CHF, UTI Diagnoses Atrial fibrillation with RVR I48.91 Acute on chronic congestive heart failure, unspecified heart failure type I50.9 Heart failure chronicity: acute on chronic Heart failure type: unspecified Poor balance R26.89 Neck pain M54.2 Mixed hyperlipidemia E78.2 Hyperlipidemia type: mixed hyperlipidemia URTI (acute upper respiratory infection) J06.9 Acute cystitis without hematuria N30.00 Urinary tract infection type: acute cystitis Hematuria presence: without hematuria Gastroesophageal reflux disease without esophagitis K21.9 Esophagitis presence: without esophagitis Chronic gout without tophus, unspecified cause, unspecified site [id number] Gout site: unspecified site Gout etiology: unspecified cause Chronicity: chronic Presence of tophus: without tophus Asthma, unspecified asthma severity, unspecified whether complicated, unspecified whether persistent J45.909 Asthma severity: unspecified severity Asthma persistence: unspecified Asthma complication type: unspecified Essential hypertension I10 Hypertension type: essential hypertension Edema of right lower leg due to peripheral venous insufficiency I87.2; R60.0 Compression fracture of T12 vertebra S22.080A
--- NOTE | 2024-08-16 13:30 | ECG_ITS ---
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 Interpretive Statements Lung unchanged pre/post procedure; Intraprocedure shortess of breath; Symptoms resoled by discharge PROCEDURE: At the baseline, the EKG revealed atrial fibrillation with a controlled ventricular response rate.. The baseline heart was 78 bpm with a blood pressue of 117/61 mm of Hg Lexiscan was infused over a period of 20 seconds. A total of 0.4 milligrams of Lexiscan was infused. The stress phase was continued for a total of 5 minutes. Heart rate at the end of the stress phase was 79 bpm with a blood pressure 99/62 mm of Hg. The EKG at the peak infusion revealed no significant changes. Sestamibi was injected 20 seconds after the Lexiscan infusion. Heart rate at the end of the recovery phase was 90 bpm with a blood pressure of 105/68 mm of Hg. CONCLUSION: 1. No significant EKG changes with the LexiScan infusion 2. No LexiScan induced chest pain or cardiac arrhythmia 3. Normal blood pressure and heart rate response 4. Sestamibi/sestamibi perfusion scan pending; see separate report. Electronically Signed On 08-20-2024 10:38:35 CDT by Waqas Fenton M.D. [email or web address]
--- NOTE | 2024-08-16 13:31 | NMCV_ITS ---
NM elma perf SPECT r/s* [id number] Marissa Hyde Age: 78 Gender: F : 1945 Exam Date: 08/16/2024 06:38 Ordering Phys: Waqas Fenton MD ([email or web address]) Technologist: DELMY Jaimes Exam Location: [facility] Indications: cp STRESS TEST Please see separate stress test report in [facility] for full findings IMAGE PROTOCOL Rest/Stress 1 Lexiscan Day Radiopharmaceutical Dose (mCi) Administration Site Administered by Rest: Tc-99m 10.9 IV Leticia Lawton [employer] Sestamibi Stress:Tc-99m 33 IV Leticia Lawton, [employer] Sestamibi Rest: 16-Aug-2024 60 Discovery 630 Stress: 16-Aug-2024 30 Discovery 630 0.4mg Lexiscan. Supine position only as patient was unable to lay prone. SPECT RESULTS Technical Quality: Good Raw Data Analysis: Normal Image Corrections: No attenuation or motion correction applied Summed Stress Score: 1 Summed Rest Score: 2 Summed Difference Score: 1 PERFUSION FINDINGS Small sized fixed perfusion defect is seen in anterior wall. Reduced radiotracer uptake on resting images seen in the inferior wall. This improves on stress imaging. Likely attenuation artifact. Prone imaging not performed. FUNCTIONAL RESULTS (calculated via Gated SPECT) Stress Image LV EF (%): 68 Stress EDV (mL):74 TID: 1.14 Stress ESV (mL):24 FUNCTIONAL FINDINGS: There is normal left ventricular systolic function. IMPRESSIONS 1. Small sized area of possible prior infarct seen in anterior wall. However prone imaging is not performed. Cannot rule out attenuation artifact. 2. Attenuation artifact seen in inferior wall. 3. No evidence of ischemia. 4. LV systolic function is normal Cl Epps MD (Electronically Signed) Final Date: 16 Aug 2024 09:05 S
--- NOTE | 2024-08-16 18:24 | PC.NURSE ---
1 L bolus has been given. Heart rate improving mid 90s to low 100s. and BP is 99/57. amiodarone is off right this minute not compatible with zosyn. Will get 2nd IV. Dr Henderson is aware
--- NOTE | 2024-08-16 18:42 | PHA.VACGOAL ---
Vancomycin Goal - Goal Vancomycin Goal:: 15-20 mg/L Vancomycin Indication:: Pneumonia - Therapy Day of therpy:: Day []of [] . Actual body weight (kg): 197 lb 11.2 oz - Data Labs: WBC 9.07 10^3/uL (3.29-11.43) 08/16/24 04:14 RBC 3.44 10^6/uL (3.85-5.65) L 08/16/24 04:14 Hgb 10.30 g/dL (11.27-16.99) L 08/16/24 04:14 Hct 33.7 % (36-47) L 08/16/24 04:14 MCV 98.0 fl (85-98) 08/16/24 04:14 MCH 29.9 pg (27-33) 08/16/24 04:14 MCHC 30.6 g/dL (30-55) 08/16/24 04:14 RDW 13.7 % (12.1-15.1) 08/16/24 04:14 Sodium 140 mmol/L (136-145) 08/16/24 04:14 Potassium 4.0 mmol/L (3.5-5.1) 08/16/24 04:14 Chloride 101 mmol/L (98-107) 08/16/24 04:14 Carbon Dioxide 29 mmol/L (22-29) 08/16/24 04:14 Anion Gap 14.0 (5-19) 08/16/24 04:14 BUN 22 mg/dL (8-23) 08/16/24 04:14 Creatinine 1.0 mg/dL (0.5-0.9) H 08/16/24 04:14 GFR Calculation Not Reportable 08/16/24 04:14 Treatment plan:: new consult Regimen:: POSSIBLE PNEUMONIA AND UTI 1500 MG LOAD AND 750 MG Q12H AFTER
[2024-08-16] MEDS: vancomycin 1,500 MG/300 ML PIGGYBACK 200 MG IV (19:03)
--- NOTE | 2024-08-16 19:59 | PC.NURSE ---
MD contacted Contacted about HR currently at 88 without amio drip started. MD ordered to do not start drip unless HR is sustaining in the 120s again.
[2024-08-16] MEDS: budesonide 0.5 mg/2 mL Neb INHALATION (20:26)
--- NOTE | 2024-08-16 20:30 | P.PN_ITS ---
Subjective 2 Subjective: Patient had a Myocardial perfusion imaging today. She was found to have no evidence of ischemia. He continues to remain stable. Telemetry shows atrial fibrillation with a controlled ventricular response rate. Medications: Medication Review Details: Current Medications Aminophylline (Aminophylline 25 Mg/Ml Sdv 20 Ml) 25 mg IVP Q2M PRN PRN Reason: see dose instructions Stop: 08/17/24 06:18 Apixaban (Apixaban 5 Mg Tablet) 5 mg PO BID@0900,2100 COREY Last Admin: 08/16/24 20:47 Dose: 5 mg Aspirin (Aspirin 81 Mg Ec Tablet) 81 mg PO DAILY COREY Last Admin: 08/16/24 09:25 Dose: 81 mg Atorvastatin Calcium (Atorvastatin 10 Mg Tablet) 20 mg PO BEDTIME COREY Last Admin: 08/16/24 20:47 Dose: 20 mg Budesonide (Budesonide 0.5 Mg/2 Ml Neb) 0.5 mg INHALATION BID.RESPIRATORY COREY Last Admin: 08/16/24 20:26 Dose: 0.5 mg Citalopram Hydrobromide (Citalopram 20 Mg Tablet) 20 mg PO DAILY COREY Last Admin: 08/16/24 09:25 Dose: 20 mg Diltiazem HCl (Diltiazem 60 Mg Tablet) 60 mg PO Q6H COREY Last Admin: 08/16/24 20:47 Dose: 60 mg Amiodarone HCl/Dextrose (Nexterone) 360 mg in 200 mls @ 0 mls/hr IV .Q0M COREY; Protocol Vancomycin HCl 750 mg/ Sodium (Chloride) 250 mls @ 250 mls/hr IV Q12H COREY Levalbuterol HCl (Levalbuterol 1.25 Mg/3 Ml Neb) 1.25 mg INHALATION Q6H.RESP COREY Last Admin: 08/16/24 20:27 Dose: 1.25 mg Lisinopril (Lisinopril 2.5 Mg Tablet) 2.5 mg PO DAILY COREY Last Admin: 08/16/24 09:25 Dose: 2.5 mg Meropenem (Meropenem 500 Mg Sdv) 500 mg IVP Q8H COREY; Protocol Last Admin: 08/16/24 19:03 Dose: 500 mg Nitroglycerin (Nitroglycerin 0.4 Mg Sublingual Tablet) 0.4 mg SUBLINGUAL Q5M PRN PRN Reason: CHEST PAIN Stop: 08/17/24 06:18 Ondansetron HCl (Ondansetron 2 Mg/Ml Sdv 2 Ml) 4 mg IVP Q8H PRN PRN Reason: vomiting, or N/V if npo Ondansetron HCl (Ondansetron 2 Mg/Ml Sdv 2 Ml) 4 mg IVP Q2M PRN PRN Reason: NAUSEA Pantoprazole Sodium (Pantoprazole 40 Mg Sdv) 40 mg IVP Q24H COREY Last Admin: 08/16/24 05:16 Dose: 40 mg Vitals/I&O/Wt Last Vital Signs Temp 100.0 F H 08/16/24 23:59 Pulse 95 08/16/24 23:59 Resp 22 H 08/16/24 23:59 BP 100/59 08/16/24 23:59 Pulse Ox 100 08/16/24 23:59 O2 Del Method Nasal Cannula 08/16/24 23:59 O2 Flow Rate 2 08/16/24 20:27 08/16/24 08/16/24 08/17/24 14:59 22:59 06:59 Intake Total 360 / 360 620 / 980 Balance 360 / 360 620 / 980 Weight last 48 hrs Weight 197 lb 11.2 oz Weight 208 lb 9.6 oz Physical Exam 2 Narrative: GENERAL: The patient is alert and oriented times three. Not in any acute distress. HEENT: No significant pallor, icterus or lymphadenopathy.Oral cavity: There are no mucous membrane lesions. NECK: Trachea appears to be central. No masses noted. No JVD or thyromegaly appreciated. RESPIRATORY: Chest is symmetrical. No intercostals muscle retraction or any accessory muscle activation. There is no chest wall tenderness. Breath sounds are heard bilaterally. No rales or rhonchi heard. No evidence of any consolidation. BREASTS: Deferred. HEART: The heart sounds are normal. No S3 or S4. Short systolic murmur in the left sternal border. No diastolic murmurs. No pericardial rub ABDOMEN: No vessel pulsations or distention. No tenderness. No organomegaly appreciated. Bowel sounds are normally heard. : Deferred. RECTAL: Deferred. LYMPHATIC: No lymphadenopathy noted in the neck. EXTREMITIES: No edema or cyanosis. No clubbing. MUSCULOSKELETAL: No acute joint deformities or swelling SKIN: There are no significant rashes or ecchymosis NEUROPSYCHIATRIC: The patient is alert and oriented x3. Appears to be in a good mood. No tremors or rigidity noted. Urinary Catheter Management: Worley: Cath Placed During This Visit: yes, but has since been removed by the nurse Reason for Continuing Indwelling Catheter: Acute Urinary Retention or Obstruction Date Urinary Catheter Removed: 08/16/24 Time Urinary Catheter Discontinued: 11:24 Data 08/16/24 04:14 08/16/24 04:14 Other Labs: Laboratory Last Values WBC 9.07 10^3/uL (3.29-11.43) 08/16/24 04:14 RBC 3.44 10^6/uL (3.85-5.65) L 08/16/24 04:14 Hgb 10.30 g/dL (11.27-16.99) L 08/16/24 04:14 Hct 33.7 % (36-47) L 08/16/24 04:14 MCV 98.0 fl (85-98) 08/16/24 04:14 MCH 29.9 pg (27-33) 08/16/24 04:14 MCHC 30.6 g/dL (30-55) 08/16/24 04:14 RDW 13.7 % (12.1-15.1) 08/16/24 04:14 Plt Count 272 10^3/cmm (157-399) 08/16/24 04:14 MPV 8.6 fL (7.4-10.4) 08/16/24 04:14 Neut % (Auto) 78.6 % 08/16/24 04:14 Lymph % (Auto) 13.2 % 08/16/24 04:14 Sol[place] % (Auto) 6.4 % 08/16/24 04:14 Eos % (Auto) 1.3 % 08/16/24 04:14 Baso % (Auto) 0.1 % 08/16/24 04:14 Neut # (Auto) 7.12 10^3/uL (1.8-7.7) 08/16/24 04:14 Lymph # (Auto) 1.2 10^3/uL (0.8-4.8) 08/16/24 04:14 Sol[place] # (Auto) 0.6 10^3/uL (0.2-0.9) 08/16/24 04:14 Eos # (Auto) 0.1 10^3/uL (0.0-0.8) 08/16/24 04:14 Baso # (Auto) 0.0 10^3/uL (0.0-0.1) 08/16/24 04:14 Nucleated RBC % (auto) 0 % 08/16/24 04:14 Nucleated RBCs # 0.0 /100WBC 08/16/24 04:14 PT 13.70 SECONDS (12.1-14.9) 08/14/24 21:31 INR 0.98 (0.8-1.2) 08/14/24 21:31 Sodium 140 mmol/L (136-145) 08/16/24 04:14 Potassium 4.0 mmol/L (3.5-5.1) 08/16/24 04:14 Chloride 101 mmol/L (98-107) 08/16/24 04:14 Carbon Dioxide 29 mmol/L (22-29) 08/16/24 04:14 Anion Gap 14.0 (5-19) 08/16/24 04:14 BUN 22 mg/dL (8-23) 08/16/24 04:14 Creatinine 1.0 mg/dL (0.5-0.9) H 08/16/24 04:14 GFR Calculation Not Reportable 08/16/24 04:14 Glucose 230 mg/dL (65-115) H 08/16/24 04:14 POC Glucose 242 mg/dL (70-110) H 08/15/24 11:11 Estimat Average Glucose 194 08/15/24 03:30 Hemoglobin A1c 8.4 % (4.0-6.0) H 08/15/24 03:30 Calculated Osmolality 301 mOsm/kg (285-295) H 08/16/24 04:14 Calcium 8.6 mg/dL (8.5-10.5) 08/16/24 04:14 Phosphorus 4.0 mg/dL (2.5-4.5) 08/16/24 04:14 Magnesium 1.8 mg/dL (1.7-2.3) 08/16/24 04:14 Total Bilirubin 0.3 mg/dL (0.15-1.2) 08/16/24 04:14 AST 11 U/L (0-32) 08/16/24 04:14 ALT 17 U/L (0-33) 08/16/24 04:14 Alkaline Phosphatase 95 U/L (35-105) 08/16/24 04:14 NT-Pro-B Natriuret Pep 1794 pg/mL (0-450) H 08/16/24 04:14 Total Protein 6.3 g/dL (6.6-8.7) L 08/16/24 04:14 Albumin 3.4 g/dL (3.5-5.2) L 08/16/24 04:14 Globulin 2.9 g/dL (1.3-4.6) 08/16/24 04:14 Urine Color Other (Yellow) A 08/16/24 09:35 Urine Appearance Cloudy (CLEAR) A 08/16/24 09:35 Urine pH TNP 08/16/24 09:35 Ur Specific Benton TNP 08/16/24 09:35 Urine Protein TNP 08/16/24 09:35 Urine Glucose (UA) TNP 08/16/24 09:35 Urine Ketones TNP 08/16/24 09:35 Urine Blood TNP 08/16/24 09:35 Urine Nitrate TNP 08/16/24 09:35 Urine Bilirubin TNP 08/16/24 09:35 Urine Urobilinogen TNP 08/16/24 09:35 Ur Leukocyte Esterase TNP 08/16/24 09:35 Urine RBC Too numerous to cnt /hpf (0-2) H 08/16/24 09:35 Urine WBC >100 /hpf (0-5) H 08/16/24 09:35 Ur Squamous Epith Cells None /hpf (0-5) 08/16/24 09:35 Amorphous Sediment Not Reportable 08/16/24 09:35 Urine Bacteria 1+ /hpf (NONE) H 08/16/24 09:35 A&P Assessment and plan (1) Atrial fibrillation with RVR: Patient is on IV Cardizem. The heart rate seems to be fairly under control. Etiology of the atrial fibrillation is not clear. Hemodynamically she is seems to be stable. (2) Congestive heart failure: The heart failure seems to be getting compensated. Myocardial perfusion imaging revealing no evidence of ischemia. (3) Hyperlipidemia: May continue on the current management. (4) Hypertension: Blood pressure is in the normal range. May continue on the current medications. (5) Diabetes mellitus type 2, noninsulin dependent: The blood sugar seems to be under control. May continue on the current management. (6) Obstructive sleep apnea: It is not very clear whether the patient is on CPAP at home or not. This may need to be further evaluated Plan The results of the Myocardial perfusion imaging were discussed with the patient. The implications were discussed. Since she has no evidence of ischemia, may not require any further investigation at this point. If the heart rate remains under control, patient may be discharged home in the morning Appointment the [facility] in 1 week Appoint with me in the office in 1 month PDMP PDMP Reviewed: Not Reviewed Attestations 2 Medical Necessity Statement*: Deferred to the primary Coding Level of Care Code 99344 Diagnoses Atrial fibrillation with RVR I48.91 Acute on chronic congestive heart failure, unspecified heart failure type I50.9 Heart failure chronicity: acute on chronic Heart failure type: unspecified Mixed hyperlipidemia E78.2 Hyperlipidemia type: mixed hyperlipidemia Essential hypertension I10 Hypertension type: essential hypertension Diabetes mellitus type 2, noninsulin dependent E11.9 Obstructive sleep apnea G47.33
[2024-08-16] MEDS: ATORVASTATIN 10 MG TABLET 20 MG PO (20:47)
[2024-08-17] VITALS (11 sets, daily range): BP systolic 105–128; BP diastolic 58–80; PULSE 66–107; RESP 16–20; TEMP 36.6–36.8; O2SAT 94–99
[2024-08-17] MEDS: levalbuterol 1.25 mg/3 mL Neb INHALATION ×2 (02:25→07:28)
[2024-08-17] MEDS: meropenem 500 mg SDV IVP ×3 (02:42→18:06)
[2024-08-17] MEDS: dilTIAZem 60 mg Tablet PO ×2 (02:42→10:15)
[2024-08-17 04:52] LABS: Basophils % 0.3 %; Eosinophils # 0.1 10^3/uL (0.0-0.8); Eosinophils % 1.4 %; Hematocrit 33.4 % (36-47); Lymphocytes # 1.4 10^3/uL (0.8-4.8); Lymphocytes % 15.8 %; Mean Corpuscular HGB Conc 29.3 g/dL (30-55); Mean Corpuscular Hemoglobin 29.4 pg (27-33); Mean Corpuscular Volume 100.3 fl (85-98); Mean Platelet Volume 8.9 fL (7.4-10.4); Monocytes # 0.6 10^3/uL (0.2-0.9); Monocytes % 7.3 %; Neutrophils # 6.49 10^3/uL (1.8-7.7); Neutrophils % 74.9 %; Nucleated Red Blood Cells % 0 %; Platelet Count 263 10^3/cmm (157-399); Red Blood Count 3.33 10^6/uL (3.85-5.65); Red Cell Distribution Width 13.9 % (12.1-15.1); White Blood Count 8.67 10^3/uL (3.29-11.43)
[2024-08-17 05:17] LABS: Alanine Aminotransferase 15 U/L (0-33); Albumin Level 3.1 g/dL (3.5-5.2); Alkaline Phosphatase 84 U/L (35-105); Anion Gap 12.3 (5-19); Aspartate Amino Transferase 9 U/L (0-32); Blood Urea Nitrogen 24 mg/dL (8-23); Calcium 8.4 mg/dL (8.5-10.5); Carbon Dioxide 29 mmol/L (22-29); Chloride 99 mmol/L (98-107); Creatinine Clr Calc Pharmacy 49.6657; Globulin 3.4 g/dL (1.3-4.6); Glucose 198 mg/dL (65-115); Magnesium 1.8 mg/dL (1.7-2.3); Osmolality Calculated 292 mOsm/kg (285-295); Phosphorus 3.2 mg/dL (2.5-4.5); Potassium 4.3 mmol/L (3.5-5.1); Sodium 136 mmol/L (136-145); Total Bilirubin 0.3 mg/dL (0.15-1.2); Total Protein 6.5 g/dL (6.6-8.7)
[2024-08-17 05:30] LABS: NT Pro B Type Natriuretic Pept 1833 pg/mL (0-450)
[2024-08-17] MEDS: pantoprazole 40 mg SDV IVP (06:09)
[2024-08-17] MEDS: VANCOMYCIN ADD-Vantage 750 MG in 0.9% NaCl ADD-Vantage 250 ML 250 MG IV ×2 (06:09→18:08)
[2024-08-17] MEDS: budesonide 0.5 mg/2 mL Neb INHALATION (07:28)
--- NOTE | 2024-08-17 07:51 | CT_ITS ---
WS: [id number] CT ABDOMEN PELVIS TECHNIQUE: Noncontrast CT of the abdomen and pelvis with coronal and sagittal reformatted images. CLINICAL INFORMATION: brown urine COMPARISON: 2018 DLP: 766.[address] scans at [facility] use at least one of these dose optimization techniques: automated exposure control; mA and/or kV adjustment per patient size (includes targeted exams where dose is matched to clinical indication); or iterative reconstruction. FINDINGS: Trace RIGHT greater than LEFT pleural fluid. Bibasilar atelectasis. A few patchy opacities in the RIGHT greater than LEFT lower lobes. Normal noncontrast liver. Cholecystectomy. Small esophageal hernia. Normal noncontrast pancreas. Splenic artery calcification. Spleen granulomas. Adrenal glands are normal. RIGHT renal cyst. Increased density in the LEFT renal pelvis suspicious for elongated calculus measuring 2.0 cm. Mild to moderate LEFT hydronephrosis with perinephric edema. LEFT proximal ureterectasis. Images in this area are degraded by respiratory motion. A few tiny nonobstructing RIGHT calyceal tip calculi. No hydronephrosis in the RIGHT kidney. Bladder is decompressed with mild bladder wall thickening. Normal sigmoid colon. No evidence of high-grade small or large bowel obstruction. Tiny fat-containing umbilical hernia. A few fluid-filled loops of small bowel in the lower abdomen and pelvis. CT/CT abdomen pelvis wo con [id number] IMPRESSION: 1. Mild to moderate LEFT hydronephrosis with increased density in the LEFT elsie al pelvis which appears to represent an elongated calculus measuring 1.9 cm. Im ages in this area degraded due to motion which limits detailed. LEFT perinephri c edema. Mild LEFT proximal ureterectasis. 2. A few nonobstructing RIGHT renal calyceal tip calculi. 3. Prior cholecystectomy. 4. No other acute findings.
--- NOTE | 2024-08-17 09:48 | PC.SOCIAL ---
IMM Update pg 2 of IMM Updated and reviewed w/ patient. Copy dated, initialed and placed in chart.
[2024-08-17] MEDS: FUROsemide 10 mg/mL SDV 4mL 40 MG IVP (10:09)
[2024-08-17] MEDS: aspirin 81 mg EC Tablet PO (10:14)
--- NOTE | 2024-08-17 10:14 | P.PN_ITS ---
Subjective 2 Subjective: The patient was found to have features of UTI, ureteric stone and ureteric obstruction causing hydronephrosis. She has no chest pain. Had a normal Myocardial perfusion imaging, suggesting no significant coronary ischemia. Medications: Medication Review Details: Current Medications Apixaban (Apixaban 5 Mg Tablet) 5 mg PO BID@0900,2100 [facility] Last Admin: 08/16/24 20:47 Dose: 5 mg Aspirin (Aspirin 81 Mg Ec Tablet) 81 mg PO DAILY [facility] Last Admin: 08/16/24 09:25 Dose: 81 mg Atorvastatin Calcium (Atorvastatin 10 Mg Tablet) 20 mg PO BEDTIME [facility] Last Admin: 08/16/24 20:47 Dose: 20 mg Budesonide (Budesonide 0.5 Mg/2 Ml Neb) 0.5 mg INHALATION BID.RESPIRATORY [facility] Last Admin: 08/17/24 07:28 Dose: 0.5 mg Citalopram Hydrobromide (Citalopram 20 Mg Tablet) 20 mg PO DAILY [facility] Last Admin: 08/16/24 09:25 Dose: 20 mg Diltiazem HCl (Diltiazem 60 Mg Tablet) 60 mg PO Q6H [facility] Last Admin: 08/17/24 02:42 Dose: 60 mg Vancomycin HCl 750 mg/ Sodium (Chloride) 250 mls @ 250 mls/hr IV Q12H [facility] Last Admin: 08/17/24 06:09 Dose: 250 mls/hr Levalbuterol HCl (Levalbuterol 1.25 Mg/3 Ml Neb) 1.25 mg INHALATION Q6H.RESP [facility] Last Admin: 08/17/24 07:28 Dose: 1.25 mg Lisinopril (Lisinopril 2.5 Mg Tablet) 2.5 mg PO DAILY [facility] Last Admin: 08/16/24 09:25 Dose: 2.5 mg Meropenem (Meropenem 500 Mg Sdv) 500 mg IVP Q8H [facility]; Protocol Last Admin: 08/17/24 10:08 Dose: 500 mg Metoprolol Succinate (Metoprolol Succinate Er (24 Hr) 25 Mg Tablet) 12.5 mg PO DAILY [facility] Ondansetron HCl (Ondansetron 2 Mg/Ml Sdv 2 Ml) 4 mg IVP Q8H PRN PRN Reason: vomiting, or N/V if npo Ondansetron HCl (Ondansetron 2 Mg/Ml Sdv 2 Ml) 4 mg IVP Q2M PRN PRN Reason: NAUSEA Pantoprazole Sodium (Pantoprazole 40 Mg Sdv) 40 mg IVP Q24H [facility] Last Admin: 08/17/24 06:09 Dose: 40 mg Vitals/I&O/Wt Last Vital Signs Temp 98.2 F 08/17/24 08:00 Pulse 84 08/17/24 08:00 Resp 18 08/17/24 08:00 BP 105/59 08/17/24 08:00 Pulse Ox 97 08/17/24 08:00 O2 Del Method Nasal Cannula 08/17/24 08:00 O2 Flow Rate 2 08/17/24 07:29 08/16/24 08/17/24 08/17/24 22:59 06:59 14:59 Intake Total 620 / 980 680 / 1660 Balance 620 / 980 680 / 1660 Weight last 48 hrs Weight 200 lb 11.2 oz Weight 197 lb 11.2 oz Physical Exam 2 Narrative: GENERAL: The patient is alert and oriented times three. Not in any acute distress. HEENT: No significant pallor, icterus or lymphadenopathy.Oral cavity: There are no mucous membrane lesions. NECK: Trachea appears to be central. No masses noted. No JVD or thyromegaly appreciated. RESPIRATORY: Chest is symmetrical. No intercostals muscle retraction or any accessory muscle activation. There is no chest wall tenderness. Breath sounds are heard bilaterally. No rales or rhonchi heard. No evidence of any consolidation. BREASTS: Deferred. HEART: The heart sounds are normal. No S3 or S4. Short systolic murmur in the left sternal border. No diastolic murmurs. No pericardial rub ABDOMEN: No vessel pulsations or distention. Vague lower abdominal discomfort. No organomegaly appreciated. Bowel sounds are normally heard. : Deferred. RECTAL: Deferred. LYMPHATIC: No lymphadenopathy noted in the neck. EXTREMITIES: No edema or cyanosis. No clubbing. MUSCULOSKELETAL: No acute joint deformities or swelling SKIN: There are no significant rashes or ecchymosis NEUROPSYCHIATRIC: The patient is alert and oriented x3. Appears to be in a good mood. No tremors or rigidity noted. Urinary Catheter Management: Worley: Cath Placed During This Visit: yes, but has since been removed by the nurse Reason for Continuing Indwelling Catheter: Acute Urinary Retention or Obstruction Date Urinary Catheter Removed: 08/16/24 Time Urinary Catheter Discontinued: 11:24 Data 08/17/24 04:39 08/17/24 04:39 Other Labs: Laboratory Last Values WBC 8.67 10^3/uL (3.29-11.43) 08/17/24 04:39 RBC 3.33 10^6/uL (3.85-5.65) L 08/17/24 04:39 Hgb 9.80 g/dL (11.27-16.99) L 08/17/24 04:39 Hct 33.4 % (36-47) L 08/17/24 04:39 MCV 100.3 fl (85-98) H 08/17/24 04:39 MCH 29.4 pg (27-33) 08/17/24 04:39 MCHC 29.3 g/dL (30-55) L 08/17/24 04:39 RDW 13.9 % (12.1-15.1) 08/17/24 04:39 Plt Count 263 10^3/cmm (157-399) 08/17/24 04:39 MPV 8.9 fL (7.4-10.4) 08/17/24 04:39 Neut % (Auto) 74.9 % 08/17/24 04:39 Lymph % (Auto) 15.8 % 08/17/24 04:39 Towner % (Auto) 7.3 % 08/17/24 04:39 Eos % (Auto) 1.4 % 08/17/24 04:39 Baso % (Auto) 0.3 % 08/17/24 04:39 Neut # (Auto) 6.49 10^3/uL (1.8-7.7) 08/17/24 04:39 Lymph # (Auto) 1.4 10^3/uL (0.8-4.8) 08/17/24 04:39 Towner # (Auto) 0.6 10^3/uL (0.2-0.9) 08/17/24 04:39 Eos # (Auto) 0.1 10^3/uL (0.0-0.8) 08/17/24 04:39 Baso # (Auto) 0.0 10^3/uL (0.0-0.1) 08/17/24 04:39 Nucleated RBC % (auto) 0 % 08/17/24 04:39 Nucleated RBCs # 0.0 /100WBC 08/17/24 04:39 PT 13.70 SECONDS (12.1-14.9) 08/14/24 21:31 INR 0.98 (0.8-1.2) 08/14/24 21:31 Sodium 136 mmol/L (136-145) 08/17/24 04:39 Potassium 4.3 mmol/L (3.5-5.1) 08/17/24 04:39 Chloride 99 mmol/L (98-107) 08/17/24 04:39 Carbon Dioxide 29 mmol/L (22-29) 08/17/24 04:39 Anion Gap 12.3 (5-19) 08/17/24 04:39 BUN 24 mg/dL (8-23) H 08/17/24 04:39 Creatinine 1.0 mg/dL (0.5-0.9) H 08/17/24 04:39 GFR Calculation Not Reportable 08/17/24 04:39 Glucose 198 mg/dL (65-115) H 08/17/24 04:39 POC Glucose 242 mg/dL (70-110) H 08/15/24 11:11 Estimat Average Glucose 194 08/15/24 03:30 Hemoglobin A1c 8.4 % (4.0-6.0) H 08/15/24 03:30 Calculated Osmolality 292 mOsm/kg (285-295) 08/17/24 04:39 Calcium 8.4 mg/dL (8.5-10.5) L 08/17/24 04:39 Phosphorus 3.2 mg/dL (2.5-4.5) 08/17/24 04:39 Magnesium 1.8 mg/dL (1.7-2.3) 08/17/24 04:39 Total Bilirubin 0.3 mg/dL (0.15-1.2) 08/17/24 04:39 AST 9 U/L (0-32) 08/17/24 04:39 ALT 15 U/L (0-33) 08/17/24 04:39 Alkaline Phosphatase 84 U/L (35-105) 08/17/24 04:39 NT-Pro-B Natriuret Pep 1833 pg/mL (0-450) H 08/17/24 04:39 Total Protein 6.5 g/dL (6.6-8.7) L 08/17/24 04:39 Albumin 3.1 g/dL (3.5-5.2) L 08/17/24 04:39 Globulin 3.4 g/dL (1.3-4.6) 08/17/24 04:39 Urine Color Other (Yellow) A 08/16/24 09:35 Urine Appearance Cloudy (CLEAR) A 08/16/24 09:35 Urine pH TNP 08/16/24 09:35 Ur Specific [place] TNP 08/16/24 09:35 Urine Protein TNP 08/16/24 09:35 Urine Glucose (UA) TNP 08/16/24 09:35 Urine Ketones TNP 08/16/24 09:35 Urine Blood TNP 08/16/24 09:35 Urine Nitrate TNP 08/16/24 09:35 Urine Bilirubin TNP 08/16/24 09:35 Urine Urobilinogen TNP 08/16/24 09:35 Ur Leukocyte Esterase TNP 08/16/24 09:35 Urine RBC Too numerous to cnt /hpf (0-2) H 08/16/24 09:35 Urine WBC >100 /hpf (0-5) H 08/16/24 09:35 Ur Squamous Epith Cells None /hpf (0-5) 08/16/24 09:35 Amorphous Sediment Not Reportable 08/16/24 09:35 Urine Bacteria 1+ /hpf (NONE) H 08/16/24 09:35 Micro: Microbiology 08/16/24 09:35 Urine Culture - Preliminary Urine,Clean Catch Gram Negative Rods Other data: Echocardiogram from 08/15/2024 Mild to moderate calcific ventricular hypertrophy. Normal LV size with an ejection fraction of 68%. Moderately increased left atrial size. Mild mitral valve regurgitation. Thickened aortic valve. Mild tricuspid valve regurgitation. Mild pulmonary hypertension. Estimated pulmonary artery peak systolic pressure 47 mmHg. Trace pulmonary valve regurgitation. There are no intracardiac masses. There is no pericardial effusion. Compared to the study from 11/29/2017, there may not be a significant moreno A&P Assessment and plan (1) Atrial fibrillation with RVR: Patient is on Cardizem 60 mg every 6 hours. I may change it to Cardizem ER 120 mg p.o. twice daily. May continue other medications as at this (2) Congestive heart failure: The heart failure seems to be getting compensated. Myocardial perfusion imaging revealing no evidence of ischemia. This was discussed with the patient detail which is understood well (3) Hyperlipidemia: May continue on the current management. (4) Hypertension: Blood pressure is in the normal range. May continue on the current medications. (5) Diabetes mellitus type 2, noninsulin dependent: The blood sugar seems to be under control. May continue on the current management. (6) Obstructive sleep apnea: Management as per the Plan Since the patient's overall cardiovascular status seems to be stable, she may not require any further intervention at this point. May continue on the current treatment measures. Patient is in the process of being transferred to [facility] for the hydronephrosis/renal stones PDMP PDMP Reviewed: Not Reviewed Attestations 2 Medical Necessity Statement*: Deferred to the primary Coding Level of Care Code 65266 Diagnoses Atrial fibrillation with RVR I48.91 Acute on chronic congestive heart failure, unspecified heart failure type I50.9 Heart failure chronicity: acute on chronic Heart failure type: unspecified Mixed hyperlipidemia E78.2 Hyperlipidemia type: mixed hyperlipidemia Essential hypertension I10 Hypertension type: essential hypertension Diabetes mellitus type 2, noninsulin dependent E11.9 Obstructive sleep apnea G47.33
[2024-08-17] MEDS: metoprolol succinate ER (24 HR) 25 mg Tablet 12.5 MG PO ×2 (10:15→13:07)
[2024-08-17] MEDS: lisinopril 2.5 mg Tablet PO (10:16)
[2024-08-17] MEDS: apixaban 5 mg Tablet PO (10:16)
[2024-08-17] MEDS: citalopram 20 mg Tablet PO (10:17)
[2024-08-17 11:24] LABS: C Reactive Protein 23.7 mg/L (0.0-4.9)
[2024-08-17] MEDS: metOLazone 5 MG Tablet PO (11:25)
[2024-08-17 11:29] LABS: Procalcitonin 0.05 ng/mL (0-0.5)
--- NOTE | 2024-08-17 11:59 | P.PN_ITS ---
Subjective 2 Subjective: - Patient was seen this morning, she is extremely hard of hearing I communicated with her using pen and paper - She does complain of chills, overnight she was noted to have dark brown urine according to nursing staff - Yesterday due to her complaints of chi lls, her antibiotic coverage was broadened to vancomycin in addition to the meropenem - Discussed with patient, she is wanting to go home, but discussed doing a CT scan of her abdomen pelvis -She does have wheezing, 1 dose of Lasix metolazone ordered -She does have intermittent episodes in which her heart rates to been in the 120s, metoprolol 12.5 added - Did CT scan abdomen pelvis, showing 1. Mild to moderate LEFT hydronephrosis with increased density in the LEFT renal pelvis which appears to represent an elongated calculus measuring 1.9 cm. Images in this area degraded due to motion which limits detailed. LEFT perinephric edema. Mild LEFT proximal ureterectasis. - Creatinine 1.0, CRP 23.7, Pro-Nicola 0.05 - Discussed with patient in detail - This was difficult given that she is v edward hard of hearing but I used a pen and paper to communicate with her - Then I spoke to patient's sister Handy rutherford over the phone in front of marissa, and I let Marisol also convey her thoughts to Marissa as Marissa really want to go home - Discussed with Marissa that she has evid ence of mild to moderate left hydronephrosis concerning for elongated kidney stone at 1.9 cm, with left perinephric edema, left proximal urinary stasis, with evidence of pyelonephritis and obstructive uropathy - Discussed with her the morbidity and m ortality associate with her diagnosis, the risk of septic shock - She has been on broad-spectrum antibio tic therapy vancomycin, meropenem - continues to have chills, she does hav e left flank pain - Discussed options available going home unfortunately is not a reasonable option - She needs to be seen by urology and tn eds to have stent placement - She could have a stone on the left elva e or it might be purulence/pus from a severe UTI or emphysematous pyelonephritis - Nonetheless she needs to be seen by ur shannon unfortunately do not have urology here at [facility] we would have to transfer to [facility] in [place] - After discussing risk and benefits of transfer with patient, she voiced understanding, all questions answered, shared decision making, she agreed to transfer to [facility] for urology evaluation, - I also spoke to Marisol, who agrees elijah teresa Ann should also be transferred, understands morbidity and mortality associate with her diagnosis - Marisol also spoke to Marissa and helped convince her to go to [place] - Spoke to [facility] in [place], spoke t o the transfer line, patient has been accepted -Spoke to urologist, images sent over, d iscussed transfer for urology evaluation, patient has been accepted - Awaiting a callback from urology Vitals/I&O/Wt Last Vital Signs Temp 98.2 F 08/17/24 08:00 Pulse 84 08/17/24 08:00 Resp 18 08/17/24 08:00 BP 105/59 08/17/24 08:00 Pulse Ox 97 08/17/24 08:00 O2 Del Method Nasal Cannula 08/17/24 08:00 O2 Flow Rate 2 08/17/24 07:29 08/16/24 08/17/24 08/17/24 22:59 06:59 14:59 Intake Total 620 / 980 680 / 1660 Balance 620 / 980 680 / 1660 Weight last 48 hrs Weight 91.036 kg Weight 89.675 kg Physical Exam 2 Const: COMMON NORMALS: no acute distress ORIENTATION/CONSCIOUSNESS: Yes awake, Yes oriented to person, Yes oriented to place and Yes oriented to time Resp: COMMON NORMALS: normal respiratory effort, No retractions and No use of accessory muscles AUSCULTATION: crackles and wheezes Cardio: COMMON NORMALS: regular rate, regular rhythm, S1 normal heart sound present and S2 normal heart sound present RATE: regular rate RHYTHM: r egular rhythm HEART SOUNDS: S1 normal heart sound present and S2 normal heart sound present GI: COMMON NORMALS: Normal to inspection, nondistended, normoactive bowel sounds present and non-tender : OTHER: Patient has left flank pain Extremity: OTHER: 1+ pitting edema Neuro: SENSORIUM/ORIENTATION: Yes oriented to person, Yes oriented to place and Yes oriented to time Psych: COMMON NORMALS: mental status grossly normal Urinary Catheter Management: Worley: Cath Placed During This Visit: yes, but has since been removed by the nurse Reason for Continuing Indwelling Catheter: Acute Urinary Retention or Obstruction Date Urinary Catheter Removed: 08/16/24 Time Urinary Catheter Discontinued: 11:24 Data 08/17/24 04:39 08/17/24 04:39 Micro: Microbiology 08/17/24 11:34 Blood Culture - Preliminary Blood SPECIMEN COLLECTED 08/17/24 11:30 Blood Culture - Preliminary Blood SPECIMEN COLLECTED 08/16/24 09:35 Urine Culture - Preliminary Urine,Clean Catch Gram Negative Rods A&P Assessment and plan (1) Atrial fibrillation with RVR: - New onset A-fib with RVR - Currently on Cardizem 60 every 6 hours -Added metoprolol 12.5 - Received Eliquis the morning of 08/17/2024, currently on hold and plans on surgical intervention - Cardiac echocardiogram CONCLUSIONS Mild to moderate calcific ventricular hypertrophy. Normal LV size with an ejection fraction of 68%. Moderately increased left atrial size. Mild mitral valve regurgitation. Thickened aortic valve. Mild tricuspid valve regurgitation. Mild pulmonary hypertension. Estimated pulmonary artery peak systolic pressure 47 mmHg. Trace pulmonary valve regurgitation. There are no intracardiac masses. There is no pericardial effusion. Compared to the study from 11/29/2017, there may not be a significant change (2) Congestive heart failure: - Cardiac echocardiogram - Systolic and diastolic CHF exacerbation - Urine output 3900 -BNP 1800 - 1 dose IV Lasix 40 mg, with metolazone 5 mg Stress testing IMPRESSIONS 1. Small sized area of possible prior infarct seen in anterior wall. However prone imaging is not performed. Cannot rule out attenuation artifact. 2. Attenuation artifact seen in inferior wall. 3. No evidence of ischemia. 4. LV systolic function is normal (3) Poor balance: PT OT (4) Neck pain: (5) Hyperlipidemia: (6) URTI (acute upper respiratory infection): - (7) UTI (urinary tract infection): (8) GERD (gastroesophageal reflux disease): Continue GI prophylaxis with Protonix to help with gastroesophageal reflux disease (9) Gout: Continue home medication on gouty arthritis (10) Asthma: Continue nebulizing treatments of Pulmicort Xopenex. (11) Hypertension: (12) Edema of right lower leg due to peripheral venous insufficiency: (13) Compression fracture of T12 vertebra: Continue pain management (14) Obstructive uropathy: (15) Pyelonephritis: Plan Obstructive uropathy, pyelonephritis, UTI - History of Enterobacter, UTI CT/CT abdomen pelvis wo con [id number] IMPRESSION: 1. Mild to moderate LEFT hydronephrosis with increased density in the LEFT renal pelvis which appears to represent an elongated calculus measuring 1.9 cm. Images in this area degraded due to motion which limits detailed. LEFT perinephric edema. Mild LEFT proximal ureterectasis. 2. A few nonobstructing RIGHT renal calyceal tip calculi. 3. Prior cholecystectomy. 4. No other acute findings. Plan - Keep n.p.o. - Eliquis held the morning of 08/17/2024 - Follow urine cultures - Follow blood cultures - Hold off on IV fluids given CHF, fluid overload concerns - Continue vancomycin - Continue meropenem - Patient has been accepted to [facility], accepted by urology awaiting a callback from hospitalist - Needs urology evaluation, potentially stenting PDMP PDMP Reviewed: Not Reviewed Attestations 2 Medical Necessity Statement*: Patient requires hospitalization for obstructive uropathy, UTI, pyelonephritis Diagnoses Atrial fibrillation with RVR I48.91 Acute on chronic congestive heart failure, unspecified heart failure type I50.9 Heart failure chronicity: acute on chronic Heart failure type: unspecified Poor balance R26.89 Neck pain M54.2 Mixed hyperlipidemia E78.2 Hyperlipidemia type: mixed hyperlipidemia URTI (acute upper respiratory infection) J06.9 Acute cystitis without hematuria N30.00 Urinary tract infection type: acute cystitis Hematuria presence: without hematuria Gastroesophageal reflux disease without esophagitis K21.9 Esophagitis presence: without esophagitis Chronic gout without tophus, unspecified cause, unspecified site [id number] Gout site: unspecified site Gout etiology: unspecified cause Chronicity: chronic Presence of tophus: without tophus Asthma, unspecified asthma severity, unspecified whether complicated, unspecified whether persistent J45.909 Asthma severity: unspecified severity Asthma persistence: unspecified Asthma complication type: unspecified Essential hypertension I10 Hypertension type: essential hypertension Edema of right lower leg due to peripheral venous insufficiency I87.2; R60.0 Compression fracture of T12 vertebra S22.080A Obstructive uropathy N13.9 Pyelonephritis N12
--- NOTE | 2024-08-17 12:09 | PM.TDS ---
Transfer Summary Providers Date of Admission: 08/14/24 22:17 Date of Discharge/Transfer: 08/17/24 Attending Provider at Admission: Morenita Walden MD Attending Provider at Transfer: eHrmilo Hunter MD Primary Care Provider: Elliott Carson Transfer Plans: Anticipated date of transfer: 08/17/24. Diagnoses at Discharge Discharge Diagnosis (1) Atrial fibrillation with RVR: Status: Acute (2) Congestive heart failure: Status: Acute Qualifiers: Heart failure chronicity: acute on chronic Heart failure type: unspecified Qualified Code(s): I50.9 - Heart failure, unspecified (3) Poor balance: Status: Acute (4) Neck pain: Status: Acute (5) Hyperlipidemia: Status: Acute Qualifiers: Hyperlipidemia type: mixed hyperlipidemia Qualified Code(s): E78.2 - Mixed hyperlipidemia (6) URTI (acute upper respiratory infection): Status: Acute (7) UTI (urinary tract infection): Status: Acute Qualifiers: Urinary tract infection type: acute cystitis Hematuria presence: without hematuria Qualified Code(s): N30.00 - Acute cystitis without hematuria (8) GERD (gastroesophageal reflux disease): Status: Chronic Qualifiers: Esophagitis presence: without esophagitis Qualified Code(s): K21.9 - Gastro-esophageal reflux disease without esophagitis (9) Gout: Status: Chronic Qualifiers: Gout site: unspecified site Gout etiology: unspecified cause Chronicity: chronic Presence of tophus: without tophus Qualified Code(s): M1A.9XX0 - Chronic gout, unspecified, without tophus (tophi) (10) Asthma: Status: Chronic Qualifiers: Asthma severity: unspecified severity Asthma persistence: unspecified Asthma complication type: unspecified Qualified Code(s): J45.909 - Unspecified asthma, uncomplicated (11) Hypertension: Status: Chronic Qualifiers: Hypertension type: essential hypertension Qualified Code(s): I10 - Essential (primary) hypertension (12) Edema of right lower leg due to peripheral venous insufficiency: Status: Acute (13) Compression fracture of T12 vertebra: Status: Acute (14) Obstructive uropathy: Status: Acute (15) Pyelonephritis: Status: Acute Reason for Visit Reason for Visit sob.cough, lower extremity edema, A-fib with RVR Hospital Course Hospital Course This is a 78-year-old female with a past medical history of diabetes, asthma, COPD, obesity, hypertension who presents to [facility] for shortness of breath, hypoxia Patient was admitted to [facility] for A-fib with RVR, cardiology was consulted mention Cardizem deyvi, transitioned to p.o. Cardizem. Currently on Cardizem 60 every 6 hours, Metroprolol 12.5 daily. Patient's heart rates are controlled at rest at times when she coughs or exerts herself the heart rates do increase into the 120s but only briefly. Will increase to metoprolol 25 daily For patient's diastolic CHF exacerbation required IV diuresis, -4850, overall clinically improving, BNP 1800, will continue IV diuresis today, with Lasix 40 mg IV once, with metolazone 5 mg once Patient underwent cardiac consultation IMPRESSIONS 1. Small sized area of possible prior infarct seen in anterior wall. However prone imaging is not performed. Cannot rule out attenuation artifact. 2. Attenuation artifact seen in inferior wall. 3. No evidence of ischemia. 4. LV systolic function is normal During her hospitalization patient complains of chills, intermittent left flank pain found to have a UTI history of Enterobacter UTIs -Initially managed on meropenem - However started to develop brown-colored urine, Worley catheter removed, antibiotic coverage broadened to vancomycin -However continue to have complaints of chills, purulent colored urine - CT scan abdomen pelvis as below Obstructive uropathy, pyelonephritis, UTI - History of Enterobacter, UTI CT/CT abdomen pelvis wo con [id number] IMPRESSION: 1. Mild to moderate LEFT hydronephrosis with increased density in the LEFT renal pelvis which appears to represent an elongated calculus measuring 1.9 cm. Images in this area degraded due to motion which limits detailed. LEFT perinephric edema. Mild LEFT proximal ureterectasis. 2. A few nonobstructing RIGHT renal calyceal tip calculi. 3. Prior cholecystectomy. 4. No other acute findings. Plan - Keep n.p.o. - Maribell held the morning of 08/17/2024 - Follow urine cultures - Follow blood cultures - Hold off on IV fluids given CHF, fluid overload concerns - Continue vancomycin - Continue meropenem - Patient has been accepted to [facility], accepted by urology awaiting a callback from hospitalist - Needs urology evaluation, potentially stenting - Spoke to hospitalist at [facility] in [place] patient has been accepted and will transfer there Physical Exam Const: COMMON NORMALS: no acute distress Eye: COMMON NORMALS: Equal, round and reactive pupils present PUPIL: Yes Equal, round and reactive pupils present Resp: COMMON NORMALS: normal respiratory effort, No retractions and No use of accessory muscles AUSCULTATION: crackles and wheezes Cardio: COMMON NORMALS: regular rate, S1 normal heart sound present and S2 normal heart sound present RATE: regular rate RHYTHM: abnormal rhythm HEART SOUNDS: S1 normal heart sound present and S2 normal heart sound present GI: COMMON NORMALS: Normal to inspection, nondistended, normoactive bowel sounds present and non-tender Extremity: NARRATIVE EXTREMITY EXAM: 1+ edema Urinary Catheter Management: Worley: Cath Placed During This Visit: yes, but has since been removed by the nurse Reason for Continuing Indwelling Catheter: Acute Urinary Retention or Obstruction Date Urinary Catheter Removed: 08/16/24 Time Urinary Catheter Discontinued: 11:24 TS Data Studies Completed and Pending Pending at discharge Category Date Time Status Blood Culture Stat Lab 08/17/24 11:34 Results Complete Blood Count w/Auto AM LABS Lab 08/18/24 04:00 Ordered Comprehensive Metabolic Panel AM LABS Lab 08/18/24 04:00 Ordered Magnesium AM LABS Lab 08/18/24 04:00 Ordered NT Pro B Type Natriuretic Pept QAM Lab 08/18/24 06:00 Ordered Phosphorus AM LABS Lab 08/18/24 04:00 Ordered Urine Culture Routine Lab 08/16/24 09:35 Results Completed Studies During Hospitalization Category Date Time Status CT abdomen pelvis wo con [id number] Stat Cat Scan 08/17/24 07:51 Completed Sestamibi Stress Test Request Routine Exams 08/16/24 13:30 Draft XR chest 1V portable [id number] Routine Exams 08/16/24 07:00 Completed XR chest 1V portable [id number] Stat Exams 08/14/24 21:00 Completed NM elma perf SPECT r/s* [id number] Routine Nuc Med 08/16/24 13:31 Completed US echo complete [CV. echo complete* [id number]] Routine Ultrasound 08/15/24 01:45 Completed US renal BI* [id number] Routine Ultrasound 08/16/24 10:39 Completed Laboratory Last Values WBC 8.67 10^3/uL (3.29-11.43) 08/17/24 04:39 RBC 3.33 10^6/uL (3.85-5.65) L 08/17/24 04:39 Hgb 9.80 g/dL (11.27-16.99) L 08/17/24 04:39 Hct 33.4 % (36-47) L 08/17/24 04:39 MCV 100.3 fl (85-98) H 08/17/24 04:39 MCH 29.4 pg (27-33) 08/17/24 04:39 MCHC 29.3 g/dL (30-55) L 08/17/24 04:39 RDW 13.9 % (12.1-15.1) 08/17/24 04:39 Plt Count 263 10^3/cmm (157-399) 08/17/24 04:39 MPV 8.9 fL (7.4-10.4) 08/17/24 04:39 Neut % (Auto) 74.9 % 08/17/24 04:39 Lymph % (Auto) 15.8 % 08/17/24 04:39 Mayes % (Auto) 7.3 % 08/17/24 04:39 Eos % (Auto) 1.4 % 08/17/24 04:39 Baso % (Auto) 0.3 % 08/17/24 04:39 Neut # (Auto) 6.49 10^3/uL (1.8-7.7) 08/17/24 04:39 Lymph # (Auto) 1.4 10^3/uL (0.8-4.8) 08/17/24 04:39 Mayes # (Auto) 0.6 10^3/uL (0.2-0.9) 08/17/24 04:39 Eos # (Auto) 0.1 10^3/uL (0.0-0.8) 08/17/24 04:39 Baso # (Auto) 0.0 10^3/uL (0.0-0.1) 08/17/24 04:39 Nucleated RBC % (auto) 0 % 08/17/24 04:39 Nucleated RBCs # 0.0 /100WBC 08/17/24 04:39 PT 13.70 SECONDS (12.1-14.9) 08/14/24 21:31 INR 0.98 (0.8-1.2) 08/14/24 21:31 Sodium 136 mmol/L (136-145) 08/17/24 04:39 Potassium 4.3 mmol/L (3.5-5.1) 08/17/24 04:39 Chloride 99 mmol/L (98-107) 08/17/24 04:39 Carbon Dioxide 29 mmol/L (22-29) 08/17/24 04:39 Anion Gap 12.3 (5-19) 08/17/24 04:39 BUN 24 mg/dL (8-23) H 08/17/24 04:39 Creatinine 1.0 mg/dL (0.5-0.9) H 08/17/24 04:39 GFR Calculation Not Reportable 08/17/24 04:39 Glucose 198 mg/dL (65-115) H 08/17/24 04:39 POC Glucose 242 mg/dL (70-110) H 08/15/24 11:11 Estimat Average Glucose 194 08/15/24 03:30 Hemoglobin A1c 8.4 % (4.0-6.0) H 08/15/24 03:30 Calculated Osmolality 292 mOsm/kg (285-295) 08/17/24 04:39 Calcium 8.4 mg/dL (8.5-10.5) L 08/17/24 04:39 Phosphorus 3.2 mg/dL (2.5-4.5) 08/17/24 04:39 Magnesium 1.8 mg/dL (1.7-2.3) 08/17/24 04:39 Total Bilirubin 0.3 mg/dL (0.15-1.2) 08/17/24 04:39 AST 9 U/L (0-32) 08/17/24 04:39 ALT 15 U/L (0-33) 08/17/24 04:39 Alkaline Phosphatase 84 U/L (35-105) 08/17/24 04:39 C-Reactive Protein 23.7 mg/L (0.0-4.9) H 08/17/24 04:39 NT-Pro-B Natriuret Pep 1833 pg/mL (0-450) H 08/17/24 04:39 Total Protein 6.5 g/dL (6.6-8.7) L 08/17/24 04:39 Albumin 3.1 g/dL (3.5-5.2) L 08/17/24 04:39 Globulin 3.4 g/dL (1.3-4.6) 08/17/24 04:39 Procalcitonin 0.05 ng/mL (0-0.5) 08/17/24 04:39 Urine Color Other (Yellow) A 08/16/24 09:35 Urine Appearance Cloudy (CLEAR) A 08/16/24 09:35 Urine pH TNP 08/16/24 09:35 Ur Specific [place] TNP 08/16/24 09:35 Urine Protein TNP 08/16/24 09:35 Urine Glucose (UA) TNP 08/16/24 09:35 Urine Ketones TNP 08/16/24 09:35 Urine Blood TNP 08/16/24 09:35 Urine Nitrate TNP 08/16/24 09:35 Urine Bilirubin TNP 08/16/24 09:35 Urine Urobilinogen TNP 08/16/24 09:35 Ur Leukocyte Esterase TNP 08/16/24 09:35 Urine RBC Too numerous to cnt /hpf (0-2) H 08/16/24 09:35 Urine WBC >100 /hpf (0-5) H 08/16/24 09:35 Ur Squamous Epith Cells None /hpf (0-5) 08/16/24 09:35 Amorphous Sediment Not Reportable 08/16/24 09:35 Urine Bacteria 1+ /hpf (NONE) H 08/16/24 09:35 Radiology Impressions Chest X-Ray 08/16/24 07:00 Impression: Atherosclerosis. Renal Ultrasound 08/16/24 10:39 IMPRESSION: 1. No hydronephrosis. 2. Urinary bladder not well visualized. Abdomen/Pelvis CT 08/17/24 07:51 IMPRESSION: 1. Mild to moderate LEFT hydronephrosis with increased density in the LEFT renal pelvis which appears to represent an elongated calculus measuring 1.9 cm. Images in this area degraded due to motion which limits detailed. LEFT perinephric edema. Mild LEFT proximal ureterectasis. 2. A few nonobstructing RIGHT renal calyceal tip calculi. 3. Prior cholecystectomy. 4. No other acute findings. Recent Clincial Data Last Vital Signs Temp 98.2 F 08/17/24 08:00 Pulse 84 08/17/24 08:00 Resp 18 08/17/24 08:00 BP 105/59 08/17/24 08:00 Pulse Ox 97 08/17/24 08:00 O2 Del Method Nasal Cannula 08/17/24 08:00 O2 Flow Rate 2 08/17/24 07:29 Vital Signs Temp Pulse Resp BP Pulse Ox O2 Del Method O2 Flow Rate 08/17/24 08:00 98.2 F 84 18 105/59 97 Nasal Cannula 08/17/24 07:29 88 18 98 Nasal Cannula 2 08/17/24 05:48 88 08/17/24 04:00 97.8 F 92 18 126/80 98 Nasal Cannula 08/17/24 02:33 102 H 08/17/24 02:25 99 20 H 99 Nasal Cannula 2 Intake & Output/Weight 08/15/24 08/16/24 08/17/24 08/18/24 06:59 06:59 06:59 06:59 Intake Total 200.000 / 601.645 6416.250 / 2672.289 4863 / 1660 250 / 250 Output Total 2600 / 2600 2250 / 2250 Balance -2400.000 / -2400.000 -722.750 / -127.753 4828 / 1660 250 / 250 Weight 94.619 kg 89.675 kg 91.036 kg Vitals Last Vital Signs Temp 98.2 F 08/17/24 08:00 Pulse 84 08/17/24 08:00 Resp 18 08/17/24 08:00 BP 105/59 08/17/24 08:00 Pulse Ox 97 08/17/24 08:00 O2 Del Method Nasal Cannula 08/17/24 08:00 O2 Flow Rate 2 08/17/24 07:29 TS Medications Medications Albuterol/Ipratropium (Ipratropium-Albuterol 3 Ml Neb) 3 ml INHALATION Q4H.RESPIRATORY [facility] Apixaban (Apixaban 5 Mg Tablet) 5 mg PO BID@0900,2100 [facility] On Hold: 08/17/24 10:47 Last Admin: 08/17/24 10:16 Dose: 5 mg Aspirin (Aspirin 81 Mg Ec Tablet) 81 mg PO DAILY [facility] Last Admin: 08/17/24 10:14 Dose: 81 mg Atorvastatin Calcium (Atorvastatin 10 Mg Tablet) 20 mg PO BEDTIME [facility] Last Admin: 08/16/24 20:47 Dose: 20 mg Budesonide (Budesonide 0.5 Mg/2 Ml Neb) 0.5 mg INHALATION BID.RESPIRATORY [facility] Last Admin: 08/17/24 07:28 Dose: 0.5 mg Citalopram Hydrobromide (Citalopram 20 Mg Tablet) 20 mg PO DAILY [facility] Last Admin: 08/17/24 10:17 Dose: 20 mg Diltiazem HCl (Diltiazem Er (12hr) 60 Mg Capsule) 120 mg PO BID [facility] Vancomycin HCl 750 mg/ Sodium (Chloride) 250 mls @ 250 mls/hr IV Q12H [facility] Last Infusion: 08/17/24 07:20 Dose: Infused Meropenem (Meropenem 500 Mg Sdv) 500 mg IVP Q8H [facility]; Protocol Last Admin: 08/17/24 10:08 Dose: 500 mg Metoprolol Succinate (Metoprolol Succinate Er (24 Hr) 25 Mg Tablet) 12.5 mg PO DAILY [facility] Last Admin: 08/17/24 10:15 Dose: 12.5 mg Ondansetron HCl (Ondansetron 2 Mg/Ml Sdv 2 Ml) 4 mg IVP Q8H PRN PRN Reason: vomiting, or N/V if npo Ondansetron HCl (Ondansetron 2 Mg/Ml Sdv 2 Ml) 4 mg IVP Q2M PRN PRN Reason: NAUSEA Pantoprazole Sodium (Pantoprazole 40 Mg Sdv) 40 mg IVP Q24H [facility] Last Admin: 08/17/24 06:09 Dose: 40 mg Discontinued Medications Aminophylline (Aminophylline 25 Mg/Ml Sdv 20 Ml) 25 mg IVP Q2M PRN PRN Reason: see dose instructions Stop: 08/17/24 06:18 Diltiazem HCl (Diltiazem 5 Mg/Ml Sdv 5 Ml) 10 mg IVP ONCE ONE Stop: 08/14/24 21:24 Last Admin: 08/14/24 21:31 Dose: 10 mg Diltiazem HCl (Diltiazem 30 Mg Tablet) 30 mg PO Q6H [facility] Last Admin: 08/15/24 14:08 Dose: 30 mg Diltiazem HCl (Diltiazem 5 Mg/Ml Sdv 5 Ml) 10 mg IVP ONCE ONE Stop: 08/15/24 01:20 Last Admin: 08/15/24 01:39 Dose: 10 mg Diltiazem HCl (Diltiazem 60 Mg Tablet) 60 mg PO Q6H [facility] Last Admin: 08/17/24 10:15 Dose: 60 mg Furosemide (Furosemide 10 Mg/Ml Sdv 4ml) 40 mg IVP ONCE ONE Stop: 08/14/24 21:24 Last Admin: 08/14/24 21:31 Dose: 40 mg Furosemide (Furosemide 10 Mg/Ml Sdv 4ml) 40 mg IVP Q12H [facility] Last Admin: 08/15/24 07:45 Dose: 40 mg Furosemide (Furosemide 10 Mg/Ml Sdv 4ml) 40 mg IVP ONCE ONE Stop: 08/16/24 07:38 Last Admin: 08/16/24 09:25 Dose: 40 mg Furosemide (Furosemide 10 Mg/Ml Sdv 4ml) 40 mg IVP ONCE ONE Stop: 08/17/24 07:46 Last Admin: 08/17/24 10:09 Dose: 40 mg Diltiazem HCl 100 mg/ Sodium (Chloride) 100 mls @ 0 mls/hr IV .Q0M [facility]; Protocol Last Titration: 08/15/24 18:47 Dose: Infused Amiodarone HCl/Dextrose (Nexterone) 360 mg in 200 mls @ 0 mls/hr IV .Q0M [facility]; Protocol Vancomycin HCl (Vancocin) 1,500 mg in 300 mls @ 200 mls/hr IV ONCE ONE Stop: 08/16/24 20:14 Last Infusion: 08/16/24 20:49 Dose: Infused Levalbuterol HCl (Levalbuterol 1.25 Mg/3 Ml Neb) 1.25 mg INHALATION Q6H.RESP [facility] Last Admin: 08/17/24 07:28 Dose: 1.25 mg Lisinopril (Lisinopril 2.5 Mg Tablet) 2.5 mg PO DAILY [facility] Last Admin: 08/17/24 10:16 Dose: 2.5 mg Metolazone (Metolazone 5 Mg Tablet) 5 mg PO ONCE ONE Stop: 08/17/24 10:51 Last Admin: 08/17/24 11:25 Dose: 5 mg Nitroglycerin (Nitroglycerin 0.4 Mg Sublingual Tablet) 0.4 mg SUBLINGUAL Q5M PRN PRN Reason: CHEST PAIN Stop: 08/17/24 06:18 Regadenoson (Regadenoson 0.4 Mg/5 Ml Syringe) 0.4 mg IVP ONCE PRN PRN Reason: Lexiscan Stress Test Last Admin: 08/16/24 07:12 Dose: 0.4 mg Allergies adhesive tape Allergy (Verified 08/14/24 21:06) Unknown levofloxacin (From Levaquin) Allergy (Verified 08/14/24 21:06) Unknown morphine Allergy (Verified 08/14/24 21:06) Unknown nitrofurantoin (From Macrobid) Allergy (Verified 08/14/24 21:06) Unknown oxytetracycline (From Terramycin with Polymyxin B) Allergy (Verified 08/14/24 21:06) Unknown Penicillins Allergy (Verified 08/14/24 21:06) Unknown polymyxin B (From Terramycin with Polymyxin B) Allergy (Verified 08/14/24 21:06) Unknown Sulfa (Sulfonamide Antibiotics) Allergy (Verified 08/14/24 21:06) Unknown Home Medications aspirin 81 mg tablet,delayed release (Adult Aspirin Regimen) 81 mg PO DAILY 11/04/21 [History Confirmed 08/15/24] cetirizine 10 mg tablet See Rx Instructions .Route .COMPLEX #90 tabs 01/14/22 [Rx Confirmed 08/15/24] citalopram 20 mg tablet See Rx Instructions .Route .COMPLEX #90 tabs 01/14/22 [Rx Confirmed 08/15/24] diltiazem HCl 90 mg capsule,extended release 12 hr 90 mg PO BID #180 caps 01/14/22 [Rx Confirmed 08/15/24] glipizide 5 mg-metformin 500 mg tablet 2 tab PO BID #360 tabs 01/14/22 [Rx Confirmed 08/15/24] lisinopril 2.5 mg tablet See Rx Instructions .Route .COMPLEX #90 tabs 01/14/22 [Rx Confirmed 08/15/24] nebulizer #1 ea 01/20/22 [Rx Confirmed 08/15/24] blood sugar diagnostic (Blood Glucose Test strips) #50 ea 10/15/22 [Rx Confirmed 08/15/24] blood-glucose meter (Blood Glucose Monitoring kit) #1 ea 10/15/22 [Rx Confirmed 08/15/24] cefdinir 300 mg capsule 300 mg PO Q12H #14 caps 08/09/24 [Rx Confirmed 08/15/24] albuterol sulfate 2.5 mg/3 mL (0.083 %) solution for nebulization 2.5 mg continuous nebulization QID PRN Shortness Of Breath 08/15/24 [History Confirmed 08/15/24] dapagliflozin propanediol 10 mg tablet (Farxiga) 10 mg PO DAILY 08/15/24 [History Confirmed 08/15/24] oxybutynin chloride 5 mg tablet,extended release 24 hr 5 mg PO DAILY 08/15/24 [History Confirmed 08/15/24] pravastatin 10 mg tablet 10 mg PO QPM 08/15/24 [History Confirmed 08/15/24] semaglutide 14 mg tablet (Rybelsus) 14 mg PO DAILY 08/15/24 [History Confirmed 08/15/24] spironolactone 25 mg tablet 25 mg PO DAILY 08/15/24 [History Confirmed 08/15/24] Discharge Plan Discharge Patient Disposition: Home Health Service Condition: Stable Prescriptions: No Action aspirin [Adult Aspirin Regimen] 81 mg tablet,delayed release (DR/EC) 81 mg PO DAILY (DME) nebulizer See Rx Instructions .Route .MEDSUPPLY Qty: 1 0RF Rx Instructions: As directed (DME) Blood Glucose Test Strip See Rx Instructions .Route Qty: 50 2RF Rx Instructions: As directed (DME) blood-glucose meter [Blood Glucose Monitoring] Kit See Rx Instructions .ROUTE .MEDSUPPLY Qty: 1 0RF Rx Instructions: As directed lisinopril 2.5 mg tablet See Rx Instructions .ROUTE .COMPLEX Qty: 90 0RF Dose Instruction: TAKE 1 TABLET BY MOUTH EVERY DAY Rx Instructions: TAKE 1 TABLET BY MOUTH EVERY DAY cetirizine 10 mg tablet See Rx Instructions .ROUTE .COMPLEX Qty: 90 0RF Dose Instruction: TAKE 1 TABLET BY MOUTH EVERY DAY Rx Instructions: TAKE 1 TABLET BY MOUTH EVERY DAY citalopram 20 mg tablet See Rx Instructions .ROUTE .COMPLEX Qty: 90 0RF Dose Instruction: TAKE 1 TABLET BY MOUTH EVERY DAY Rx Instructions: TAKE 1 TABLET BY MOUTH EVERY DAY diltiazem HCl 90 mg capsule,extended release 12 hr 90 mg PO BID Qty: 180 0RF glipizide-metformin 5-500 mg tablet 2 tab PO BID Qty: 360 0RF cefdinir 300 mg capsule 300 mg PO Q12H Qty: 14 0RF albuterol sulfate 2.5 mg /3 mL (0.083 %) solution for nebulization 2.5 mg continuous nebulization QID PRN (Reason: Shortness Of Breath) spironolactone 25 mg tablet 25 mg PO DAILY pravastatin 10 mg tablet 10 mg PO QPM oxybutynin chloride 5 mg tablet extended release 24hr 5 mg PO DAILY dapagliflozin propanediol [Farxiga] 10 mg tablet 10 mg PO DAILY Rybelsus 14 mg tablet 14 mg PO DAILY Discharge Orders: Discharge Order (Routine); Ordered 08/17/24 Ordered By: Hermilo Hunter Other Ambulatory Orders: DME: Oxygen (Order) Location: None Selected Ordered By: Hermilo Hunter Referrals: [facility] [Outside] Elliott Carson [Primary Care Provider, [facility]] - 08/21/24 2:20 pm Patient Instructions: Opioid Safety Transfer Attestations Time Spent in Transfer Care: greater than 30 min Quality Metrics Clinical Quality Measures [ No reported AMI, CVA or VTE this stay] Coding Level of Care Code 53887 Total time (in minutes) for Discharge: 45 Diagnoses Atrial fibrillation with RVR I48.91 Acute on chronic congestive heart failure, unspecified heart failure type I50.9 Heart failure chronicity: acute on chronic Heart failure type: unspecified Poor balance R26.89 Neck pain M54.2 Mixed hyperlipidemia E78.2 Hyperlipidemia type: mixed hyperlipidemia URTI (acute upper respiratory infection) J06.9 Acute cystitis without hematuria N30.00 Urinary tract infection type: acute cystitis Hematuria presence: without hematuria Gastroesophageal reflux disease without esophagitis K21.9 Esophagitis presence: without esophagitis Chronic gout without tophus, unspecified cause, unspecified site M1A.9XX0 Gout site: unspecified site Gout etiology: unspecified cause Chronicity: chronic Presence of tophus: without tophus Asthma, unspecified asthma severity, unspecified whether complicated, unspecified whether persistent J45.909 Asthma severity: unspecified severity Asthma persistence: unspecified Asthma complication type: unspecified Essential hypertension I10 Hypertension type: essential hypertension Edema of right lower leg due to peripheral venous insufficiency I87.2; R60.0 Compression fracture of T12 vertebra S22.080A Obstructive uropathy N13.9 Pyelonephritis N12
[2024-08-17] MEDS: ipratropium-albuterol 3 mL Neb INHALATION (15:44)
--- NOTE | 2024-08-17 16:41 | PC.NURSE ---
received room number at [facility] ([id number])...and number to phone report.report phoned to violeta carvalho.she instructed NOT to send pt via EMS until floor called us back when the room is clean.
[2024-08-17] MEDS: dilTIAZem ER (12HR) 60 mg Capsule 120 MG PO (17:50)
--- NOTE | 2024-08-17 18:24 | PC.NURSE ---
report given to ems.discharged via stretcher to [facility]
== END 2024-08-17 18:51 | disposition short-term general hospital (02) | DRG 291 ==
LOC: ER 22:24 → CSU 23:20
PROVIDERS: Admitting Provider Internal Medicine; Emergency Provider Emergency Medicine; PCP Family Medicine; Visit Provider Family Medicine
DX: I11.0 Hypertensive heart disease with heart failure (principal); I50.33 Acute on chronic diastolic (congestive) heart failure; N30.00 Acute cystitis without hematuria; N13.2 Hydronephrosis with renal and ureteral calculous obstruction; N10 Acute pyelonephritis; I48.0 Paroxysmal atrial fibrillation; M54.2 Cervicalgia; E78.2 Mixed hyperlipidemia; K21.9 Gastro-esophageal reflux disease without esophagitis; M1A.9XX0 Chronic gout, unspecified, without tophus (tophi); J44.9 Chronic obstructive pulmonary disease, unspecified; E11.9 Type 2 diabetes mellitus without complications; E66.01 Morbid (severe) obesity due to excess calories; Z68.35 Body mass index [BMI] 35.0-35.9, adult; G47.33 Obstructive sleep apnea (adult) (pediatric); Z79.82 Long term (current) use of aspirin; Z79.84 Long term (current) use of oral hypoglycemic drugs; Z79.85 Long-term (current) use of injectable non-insulin antidiabetic drugs; Z91.148 Patient's other noncompliance with medication regimen for other reason; Z99.89 Dependence on other enabling machines and devices
CPT/HCPCS: 36415; 36416; 51702; 71045; 74176; 76770; 78452; 80053; 81001; 82962; 83036; 83735; 83880; 84100; 84145; 85025; 85610; 86140; 87040; 87077; 87086; 87150; 87186; 87205; 93005; 93017; 93306; 94640; 94760; 96365; 96366; 96375; 96376; 97110; 97116; 97161; 97530; 99285; A9270; A9500; J1938; J2185; J2470; J2785; J3370; J3490; J7050; J7614; J7626; J9999